=== PATIENT | female | born 1965 | race Caucasian/White ===

== ENCOUNTER 2023-12-18 13:30 | Outpatient (CLI) | payer BC, SELFPAY ==
--- NOTE | ~2023-12-18 | XR_ITS ---
[id number] Ordering provider: CAMMIE West History: . PAIN ACROSS TOP OF FOOT AFTER RUNNING . Comparison: None. FINDINGS: BONES: No acute fracture or dislocation. JOINT SPACES: Normal. No tarsal coalition. SOFT TISSUES: Normal. IMPRESSION: No acute osseous abnormality of the right foot. Reviewed, dictated and finalized at location A.
== END 2023-12-18 13:31 ==
PROVIDERS: PCP Clinical Nurse Specialist; Visit Provider Clinical Nurse Specialist
DX: M79.671 Pain in right foot (principal)
CPT/HCPCS: 73630

== ENCOUNTER 2023-12-26 09:01 | Emergency (ER) | payer BC, SELFPAY ==
--- NOTE | ~2023-12-26 | CT_ITS ---
CT abdomen pelvis w con Ordering provider: Aye Quach APRN History: 58 years Female with . abdominal pain . Comparison: None. Technique: CT abdomen and pelvis with IV and without oral contrast. Automated exposure control and it erative reconstruction technique were employed. The dose-length product was 302.48 mGy-cm. 100 mL Omn ipaque 350 was given IV. Findings: VISUALIZED LOWER CHEST: Dependent atelectatic changes. UPPER ABDOMINAL ORGANS: Liver: Fat infiltration. Hepatomegaly. Gallbladder: Normal. Spleen: Hypodensity seen in the liver which may be a cyst. Follow-up advised. Stomach/duodenum: Thickened wall. Thickened lower esophagus wall which may indicate reflux esophagiti s. Clinical evaluation advised. Pancreas: Normal. Adrenals: Normal. Kidneys: Stone in the left kidney mid pole measuring 5 mm. Right hydronephrotic changes with a stone in the right lower ureter measuring 7 mm. Slight dilatation of the left ureter and renal pelvis. PELVIC ORGANS: Underfilled urinary bladder with slightly thickened wall. BOWEL AND MESENTERY: Colon: Thickened wall of the rectum. Evaluation clinically is advised. No evidence of diverticulitis. Normal appendix. Small Bowel: Normal. No obstruction. Peritoneum/mesentery: No free air or free fluid. No mesenteric lymphadenopathy. RETROPERITONEUM: Mild atheromatous disease of the abdominal aorta. No retroperitoneal lymphadenopat hy. Lymph node is seen adjacent to the right iliac vessels measuring 1.2 cm. MUSCULOSKELETAL: Superficial soft tissues: The superficial soft tissues are normal. Bones: Age appropriate degenerative changes of the spine. IMPRESSION: 1. Stone in the right lower ureter with right hydronephrotic changes. 2. Slight dilatation of the left renal pelvis and ureter with no definite stones. Bilateral renal 3. Slightly enlarged iliac lymph nodes. 4. Fat infiltration of the liver. Hepatomegaly 5. Hypodensity in the spleen most likely a cyst. Follow-up advised. Reviewed, dictated and finalized at location A. IMPRESSION: 1. Stone in the right lower ureter with right hydronephrotic changes. 2. Slight dilatation of the left renal pelvis and ureter with no definite ston es. Bilateral renal 3. Slightly enlarged iliac lymph nodes. 4. Fat infiltration of the liver. Hepatomegaly 5. Hypodensity in the spleen most likely a cyst. Follow-up advised.
[2023-12-26 09:10] VITALS: BP 152/81; PULSE 76; RESP 16; TEMP 36.6; O2SAT 100
[2023-12-26 09:33] LABS: Basophils Percent Auto 0.6 % (0.2-1.2); Eosinophils Absolute Auto 0.1 K/mm3 (0-0.3); Eosinophils Percent Auto 1.9 % (0-4.4); Hematocrit 37.3 % (37.0-47.0); Hemoglobin 12.4 g/dL (12.0-15.0); Immature Granulocyte Absolute 0.01 K/mm3 (0.00-0.031); Immature Granulocyte Percent A 0.1 % (0-0.5); Lymphocytes Absolute Auto 1.94 K/mm3 (0.9-3.2); Mean Corpuscular HGB Conc 33.2 g/dl (32-36); Mean Corpuscular Volume 96.4 fl (80-100); Mean Platelet Volume 10.1 fl (7.4-10.4); Monocytes Absolute Auto 0.6 K/mm3 (0.1-0.6); Neutrophils Percent Auto 59.4 % (45.5-73.1); Platelet Count Result 227 k/mm3 (150-375); Red Blood Count 3.87 M/mm3 (4.2-5.4); Red Cell Distribution Width 13.2 % (11.5-14.5); White Blood Count 6.7 K/mm3 (4.5-10.0)
--- NOTE | 2023-12-26 09:38 | ED.GENADULT ---
HPI - General Adult General Chief complaint: Abdominal Pain Stated complaint: cyst burst Time Seen by Provider: 12/26/23 09:15 History of Present Illness HPI narrative: Bhavani Casillas is a 58 y/o female who presents today with reports of having right flank pain that started 5 days ago, she states it felt similar to ovarian cysts she has had in the past but the pain felt more severe and it made her vomit. She states the pain then moved around to her right lower abdomen and has not improved. She states now she is having a constant pressure / ache pain to her right lower abdomen. Denies urinary symptoms Last normal BM was this morning Denies feeling nausea but has not had an appetite since this started 5 days ago NO fever/chills Hx of / tubal and hysterectomy Related Data Home Medications Medication Instructions Recorded Confirmed levothyroxine 25 mcg tablet 25 mcg PO DAILY 06/29/22 12/18/23 (Unithroid) Allergies Allergy/AdvReac Type Severity Reaction Status Date / Time chlorhexidine Allergy Hives Verified 12/26/23 09:15 amlodipine AdvReac Heartburn Verified 12/18/23 12:56 Review of Systems Review of Systems: CONSTITUTIONAL: Denies fever, chills, or sweats. EYES: Denies visual changes, redness, or discharge. ENT: Denies rhinorrhea, congestion, sore throat, or otalgia. CARDIOVASCULAR: Denies chest pain, palpitations, or edema. RESPIRATORY: Denies cough or dyspnea. GASTROINTESTINAL: + right lower abdominal pain, Denies nausea, vomiting, or diarrhea. GENITOURINARY: Denies dysuria or hematuria. SKIN: Denies rash or itching. MUSCULOSKELETAL: Denies back pain, joint pain, or myalgia. NEUROLOGIC: Denies headache, numbness, dizziness, or weakness. PSYCHIATRIC: Denies anxiety or depression. FORMERLY [facility] Past Medical History Medical History Arthritis Dyslipidemia Essential (primary) hypertension H/O Corazon thyroiditis Hypothyroidism (acquired) Multinodular goiter Surgical History Surgical History H/O dilation and curettage (~06/17/09) H/O foot surgery (~1976) Left - for bony deformity H/O: hysterectomy (~09/20/16) History of (~1992) Hx of tubal ligation (~2010) Family History Family History Father Cerebrovascular accident Family history of coronary artery disease Family history of cardiovascular disease Social History Social History Smoking status: Former smoker Smoking end date: 06/18/91 Alcohol intake: current Substance use: never Substance use type: does not use Lack of Transportation: No Lack of Food: Never True Current Housing: I Have Housing Concerned About Future Housing: No Difficulty Paying Gas/Electric Bills: No Difficulty Paying for Meds: No Currently Unemployed: No Education: Master's Degree or Higher Difficulty w/ Childcare or Family Care: No Exam Narrative: GENERAL: Well-appearing, well-nourished, and in no acute distress. HEAD: Normocephalic, atraumatic. EYES: PERRLA and EOMI. ENT: Nares clear, no rhinorrhea or epistaxis. Mucous membranes moist. Oropharynx without tonsillar hypertrophy exudate or other lesions. NECK: Supple. No adenopathy or masses. No carotid bruits or JVD CHEST: Clear to auscultation. No respiratory distress. No wheezes rales or rhonchi HEART: Regular rate and rhythm. No murmur heard. Normal peripheral pulses. ABDOMEN: Soft, nondistended, normal active bowel sounds + pain with palpation to the right lower quadrant + Right CVA tenderness EXTREMITIES: Normal range of motion. No edema. SKIN: Warm, dry, no rash. NEURO: No focal deficits. Alert and oriented x3. PSYCH: Normal mood and affect. Course Vital Signs Vital signs: Vital Signs Temperature 36.6 C 12/26/23 09:10 Pulse Rate 76
[2023-12-26] MEDS: SODIUM CHLORIDE 0.9% IV 1,000 ML 999 ML IV CONT (09:44)
[2023-12-26] MEDS: KETOROLAC 30 MG/ML VIAL (*BKC) IV PUSH (09:44)
[2023-12-26] MEDS: ONDANSETRON INJ 4 MG/2 ML VIAL IV PUSH (09:45)
[2023-12-26] MEDS: FAMOTIDINE 20 MG/2 ML VIAL IV PUSH (09:45)
[2023-12-26 09:46] LABS: Alanine Aminotransferase 23 U/L (6-35); Albumin Level 4.4 g/dL (3.5-5.1); Alkaline Phosphatase 62 U/L (38-126); Anion Gap 12 mmol/L (4-12); Aspartate Amino Transferase 30 U/L (14-36); Bilirubin,Total 0.5 mg/dL (0.2-1.3); Blood Urea Nitrogen 19 mg/dL (7-17); Calcium 9.6 mg/dL (8.4-10.2); Carbon Dioxide 24 mmol/L (22-30); Chloride 104 mmol/L (98-107); Estimated CRCL calculation 55 ml/min; Estimated Glomerular Filt Rate > 60; Glucose 85 mg/dL (65-110); Lipase 107 U/L (23-300); Potassium 4.5 mmol/L (3.4-5.0); Sodium 140 mmol/L (137-145)
[2023-12-26 10:27] VITALS: BP 120/73; PULSE 75; RESP 17; O2SAT 100
[2023-12-26 10:42] LABS: Appearance Urine Clear (Clear); Bacteria Urine None Seen /hpf; Bilirubin Urine Negative (Negative); Blood Urine 1+ (Negative); Color Urine Yellow (Yellow); Glucose Urine UA Negative (Negative); Ketones Urine 1+ mg/dL (Negative); Leukocyte Esterase Ur Negative LEU/UL (Negative); Nitrate Urine Negative (Negative); Non Pathogenic Casts 0-2; Protein Urine Negative (Negative); Specific Grav Ur 1.018 (1.001-1.035); Squamous Epithelial Cell Urine None Seen /hpf (Few); Urobilinogen Urine 0.2 mg/dL (<2.0); WBC Urine 0-5 /hpf (0-3); pH Urine 5.5 (5.0-9.0)
[2023-12-26 11:10] LABS: Add Urine Microscopic? YES
[2023-12-26 12:01] VITALS: BP 125/73; O2SAT 98
[2023-12-26] MEDS: TAMSULOSIN HCL 0.4 MG CAPSULE PO (13:01)
[2023-12-26 13:07] VITALS: BP 132/84; PULSE 68; RESP 15; O2SAT 99
[2023-12-26 14:25] VITALS: BP 118/67; PULSE 70; RESP 16; O2SAT 97
== END 2023-12-26 14:28 | disposition home or self-care (01) ==
PROVIDERS: Emergency Provider Nurse Practitioner Family; PCP Internal Medicine
DX: N20.1 Calculus of ureter (principal); E78.5 Hyperlipidemia, unspecified; I10 Essential (primary) hypertension; E03.9 Hypothyroidism, unspecified; Z87.891 Personal history of nicotine dependence
CPT/HCPCS: 36415; 74177; 80053; 81001; 83690; 85025; 96361; 96374; 96375; 99284; A9270; J1885; J2405; J7030; Q9967

== ENCOUNTER 2023-12-27 12:46 | Outpatient (CLI) | payer BC, SELFPAY ==
--- NOTE | ~2023-12-27 | XR_ITS ---
EXAMINATION: XR abdomen/kub 1V DATE: 12/27/2023 13:06 INDICATION: Right ureteral stone. TECHNIQUE: A supine view of the abdomen on 2 radiographs was obtained. COMPARISON: CT abdomen and pelvis 12/26/2023 FINDINGS: There are no dilated loops of bowel. There are two 2 mm stones in right kidney upper pole. There is a 5 mm stone in left kidney. There is a 5 mm stone in distal right ureter overlying the sacr um. There are phleboliths in the pelvis. IMPRESSION: 1. 5 mm stone in distal right ureter. 2. Bilateral kidney stones. Reviewed, dictated and finalized at location E.
== END 2023-12-27 12:47 | disposition home or self-care (01) ==
PROVIDERS: PCP Internal Medicine; Visit Provider Physician Assistant
DX: N20.2 Calculus of kidney with calculus of ureter (principal)
CPT/HCPCS: 74018

== ENCOUNTER 2024-01-02 09:23 | Outpatient (CLI) | payer BC, SELFPAY ==
--- NOTE | 2024-01-02 09:30 | ECG_ITS ---
Test Date: 2024-01-02 09:48:45 Measurements Intervals Donora Rate: 64 P: 49 DE: 168 QRS: 16 QRSD: 65 T: 70 QT: 371 QTc: 384 Interpretive Statements SINUS RHYTHM LOW QRS VOLTAGE IN PRECORDIAL LEADS PATTERN CONSISTENT WITH PULMONARY DISEASE NONSPECIFIC ST-T WAVE ABNORMALITY- INF/HIGH LAT LEADS BORDERLINE ECG No previous ECG available for comparison Electronically Signed On 01-02-2024 17:30:11 CDT by Altaf Sevilla D.O.
== END 2024-01-02 09:24 | disposition home or self-care (01) ==
LOC: ANHSURGERY 09:31
PROVIDERS: PCP Internal Medicine; Visit Provider Urology
DX: I10 Essential (primary) hypertension (principal); Z01.818 Encounter for other preprocedural examination; R94.31 Abnormal electrocardiogram [ECG] [EKG]
CPT/HCPCS: 93005

== ENCOUNTER 2024-01-03 01:46 | Day surgery (SDC) | payer BC, SELFPAY ==
[2023-12-31 16:52] VITALS: BMI 23.3
--- NOTE | 2023-12-31 16:58 | SUR.PREOP ---
Report to the Outpatient Waiting Room, entrance under the green pavilion located off [facility], at time 0930 on date 01/03/24. Planned Procedure Time: 1130. Time changes happen often and if your time is changed the preop area will call you the afternoon before. - You and your visitor will be asked to self-screen and do not enter if you have any COVID symptoms. - A mask is optional within the hospital at this time. Patients may have clear liquids (water, carbonated beverages, clear teas, apple juice) until 3 hours prior to surgery with a maximum of 20 ounces. - No food from midnight until time of surgery - Infants may have breast milk until 4 hours before surgery, formula 6 hours prior to surgery. - Children will be allowed to drink immediately following surgery. If applicable, please bring a bottle or sippy cup to assist with drinking. Juice, water, soda, and popsicles are readily available. For infants on formula, please bring formula the day of surgery. Pacifiers are allowed. Take the following medications with a SIP of water the morning of surgery: LEVOTHYROXINE DO NOT STOP ANY OF YOUR OTHER PRESCRIPTION MEDICATIONS PRIOR TO SURGERY ?EXCEPT THE FOLLOWING Medications to discontinue per physician Date to take last dose Please no make-up, nail algerian, hairspray, perfume, deodorant, or body powder the day of surgery. No jewelry (including any body piercings) or valuables the day of surgery, leave them at home. Please take a shower or bath the night before, or the morning of, surgery with an antibacterial soap. Wear comfortable, loose fitting clothing. Children are encouraged to wear pajamas. - Jewelry must be removed prior to entering the operating room. Rings and piercings that are not removed may be cut off. - The hospital will not accept responsibility for valuables. - Please leave all valuables, including medications, at home the day of surgery. If you are going home after surgery, a licensed motor driver must drive you home. - NO public transportation without another adult if you receive anesthesia. - We recommend that an adult stay with you for 24 hours following discharge. - We also recommend that you do not drive, make important decision, drink alcoholic beverages, or take any drugs that were not prescribed by your health care provider for at least 24 hours after your discharge time. For Pediatric surgeries, we recommend two adults accompany the child home. Follow any additional instructions given to you from your surgeon. If you or anyone in your household have experienced Covid symptoms in the past week, please notify your surgeon or the nurse liaison at the phone number below for possible testing. Telephone instructions given to __PATIENT__and asked if any additional questions and then verbalized understanding. Patient advised to call surgeon office or pre surgery nurse liaison [phone] if any additional questions.
[2024-01-03] VITALS (9 sets, daily range): BP systolic 110–129; BP diastolic 47–69; PULSE 60–86; RESP 11–16; TEMP 36.4–36.6; O2SAT 97–100; BMI 23.8
--- NOTE | ~2024-01-03 | XR_ITS ---
EXAMINATION: XR retrograde pyelo w/stent RT DATE: 01/03/2024 11:26 INDICATION: Right internal ureteral stent placement TECHNIQUE: Fluoroscopic images from a right internal ureteral stent placement are submitted for fam nava 27 seconds of fluoroscopy time. 5 fluoroscopic images FINDINGS: There is a right double-J internal ureteral stent projecting in expected position, with proximal [place] loop at the level of the renal pelvis and distal loop in the pelvis within the bladder lumen. IMPRESSION: 1. Right internal ureteral stent placement. Please refer to real-time procedural findings for adams mccurdy. Reviewed, dictated and finalized at location B. IMPRESSION: 1. Right internal ureteral stent placement. Please refer to real-time procedu ral findings for details.
--- NOTE | 2024-01-03 06:30 | WPDHPUPDATE1 ---
History and Physical Update Update Date/Time: 01/03/24 06:30 History and Physical has been reviewed, including an updated exam of the patient. There are NO changes in the patient's condition. Risks, benefits, and alternatives have been discussed and questions answered. Patient agrees to proceed with procedure.
--- NOTE | 2024-01-03 09:51 | WPDANESEPPF ---
Anes - Initial Pre Proc Eval Procedure: Operation Date: 01/03/24 11:30 Proposed Procedures p Cystoscopy, Right Ureteroscopy, Holmium Laser Lithotripsy, Right Stone Extraction, Possible Retrograde Pyelography, Possible Right Stent Placement - Franc Cid MD Date/Time: 01/03/24 09:51 Surgeon: Franc Cid MD Pre Op Diagnosis: Right Ureteral Stone Patient Data Age: 58 Gender: F Height: 1.68 m Weight: 65.77 kg Allergies Allergy/AdvReac Type Severity Reaction Status Date / Time chlorhexidine Allergy Hives Verified 01/02/24 13:57 amlodipine AdvReac Heartburn Verified 01/02/24 13:57 Home Medications Medication Instructions Recorded Confirmed Type levothyroxine 25 mcg tablet 25 mcg PO DAILY 06/29/22 01/02/24 History (Unithroid) lisinopril 10 mg tablet 10 mg PO DAILY 12/31/23 01/02/24 History acetaminophen 325 mg tablet 650 mg PO Q4-6H 01/01/24 01/02/24 History (Tylenol) tamsulosin 0.4 mg capsule 0.4 mg PO DAILY 01/01/24 01/02/24 History Patient hx anesthesia problems: none Family hx anesthesia problems: none Results Review: All pre-operative results and documents have been reviewed as part of the pre-operative evaluation. FORMERLY [facility] Past Medical History Medical History Arthritis Dyslipidemia Essential (primary) hypertension H/O Corazon thyroiditis Hypothyroidism (acquired) Multinodular goiter Surgical History Surgical History H/O dilation and curettage (~06/17/09) H/O foot surgery (~1976) Left - for bony deformity H/O: hysterectomy (~09/20/16) History of (~1992) Hx of tubal ligation (~2010) Family History Family History Father Cerebrovascular accident Family history of coronary artery disease Family history of cardiovascular disease Social History Social History Smoking status: Never smoker Smoking end date: 06/18/91 Alcohol intake: current Substance use: never Substance use type: does not use Lack of Transportation: No Lack of Food: Never True Current Housing: I Have Housing Concerned About Future Housing: No Difficulty Paying Gas/Electric Bills: No Difficulty Paying for Meds: No Currently Unemployed: No Education: Master's Degree or Higher Difficulty w/ Childcare or Family Care: No Living arrangements: with family Spiritual care concerns: No Anes - Eval Final PreProcedure Day of Procedure 01/03/24 09:51 Patient weight: normal Heart: regular rate and rhythm Lungs: clear to auscultation Airway: Mallampati scale class II Neurological: alert and oriented Last oral intake: >/= 8 hours ASA classification: II Emergent: no Anesthetic plan: proceed Anesthesia type and monitoring: general LMA and standard monitoring Results Review: All pre-operative results and documents have been reviewed as part of the pre-operative evaluation. HTN, hypothyroidism. Informed Consent: The patient's anesthetic plan and its attendant risks and benefits were discussed with the patient/family/POA. Questions were solicited and answers provided to the satisfaction of the patient/family/POA.
[2024-01-03] MEDS: LACTATED RINGERS 1,000 ML 30 ML IV CONT (10:00)
[2024-01-03] MEDS: ceFAZolin 2 GM/D5W 50 ML 2 GM/50 ML BAG IVPB (10:48)
[2024-01-03] MEDS: LIDOCAINE HCL 2% GEL UROJET 10 ML PKG MUCOUS MEM (11:00)
[2024-01-03] MEDS: KETOROLAC 15 MG/ML VIAL (*BKC) IV PUSH (11:19)
--- NOTE | 2024-01-03 11:26 | P.OP_ITS ---
Procedure Note - Detailed Date of Procedure 01/03/24 Pre-op Diagnosis Right Ureteral Stone Post-op Diagnosis Same Procedure Performed Cystoscopy, right ureteroscopy, laser lithotripsy with stone extraction, retrograde pyelogram and stent Surgeon Franc Cid MD Anesthesia General Description of Procedure The patient was brought to the operative suite where she is prepped and draped in a routine sterile fashion while in the dorsal lithotomy position after the uneventful induction of a general LMA anesthetic. A 19F rigid cystoscope was placed in the bladder. The patient had no evidence of urethral stricture or bladder neck contracture. The bladder mucosa was endoscopically normal without hyperemia or neoplasm. There was a single, orthotopic ureteral orifice bilaterally. A 0.035 glidewire was advanced into the right renal pelvis under fluoroscopy. The distal ureter was dilated with an 8F/10F ureteral dilator. Ureteroscopy was undertaken with a short tapered semi-rigid ureteroscope. She has a large 7 mm stone which was impacted 7-8 cm above the ureteral orifice. I used a 272 micron Pretty in my Pocket (PRIMP) laser fiber to fracture at/ dusted into multiple small pieces, all of which were removed with a 1 point F disposable escape stone basket. Due to the extent of this manipulation I did place a 4.8F double-J ureteral stent. I performed a retrograde pyelogram through the ureteral scope to ensure appropriate placement of the stent. The proximal coil of the stent was confirmed to be in the renal pelvis and the distal coil in the bladder. The patient's bladder was emptied and she was taken to the recovery room having tolerated this procedure well. Pathology Yes Condition Stable Disposition PACU
--- NOTE | 2024-01-03 11:54 | SUR.PHASEI ---
Simple mask removed at 1155.
[2024-01-03] MEDS: oxyCODONE HCL (*CRX) 5 MG TAB IR PO (12:41)
== END 2024-01-03 13:12 | disposition home or self-care (01) ==
PROVIDERS: PCP Internal Medicine; Visit Provider Urology
PROC: (CPT 52352; principal; 2024-01-03 11:30)
DX: N20.1 Calculus of ureter (principal); I10 Essential (primary) hypertension
CPT/HCPCS: 52356; 74420; 82365; 88300; A9270; C1769; C2617; J0690; J1885; J2371; J2405; J2704; J3010; J7120; Q9966

== ENCOUNTER 2024-01-28 08:48 | Outpatient (CLI) | payer BC, SELFPAY ==
--- NOTE | ~2024-01-28 | US_ITS ---
COMPLETE ABDOMINAL ULTRASOUND Ordering provider: Coni Bhagat NP History: . Hepatomegaly and cyst of spleen . Comparison: None. FINDINGS: LIVER: Hepatomegaly with fat infiltration. The liver measures 20.6 cm. No focal hepatic lesions or pe rihepatic fluid collections are identified. Portal vein flow is normal. GALLBLADDER: Unremarkable. No evidence for stones, sludge, gallbladder wall thickening or pericholecy stic fluid collections. The wall measures 0.15 cm. A negative sonographic Lobato's sign was noted. BILIARY DUCTS: No evidence for intra or extrahepatic biliary dilation. Common bile duct measures 1.8 mm in diameter which is within normal limits. PANCREAS: Normal echotexture and size. SPLEEN: Normal size, echotexture and contour and measures 9.2 cm in length. Hypoechoic area is seen m easuring 1.1 x 1.3 x 1 cm most likely a small cyst. KIDNEYS: Right measures 11.1x 3.5x 4.8 cm in length and the left 12.2x 5x 4.2 cm in length. Hypoechoi c area is seen in the right kidney measuring 1 x 1.1 x 0.9 cm.. Follow-up advised. Echogenic stone wi th shadowing is seen in the left kidney measuring 0.8 x 0.4 x 5.7 cm. Mild hydronephrotic changes in the left kidney. UPPER ABDOMINAL AORTA: Normal in caliber. Proximal aorta measures 2.1 cm. Mid aorta measures 1.8 cm. Distal aorta measures 1.6 cm. IVC: Patent. FREE FLUID: None. IMPRESSION: Hepatomegaly with fat infiltration. Hypoechoic area in the spleen. Most likely a cyst. Hypoechoic area in the right kidney which may be a cyst or a mass. Follow-up advised. Stone in the left kidney with mild hydronephrotic changes. Reviewed, dictated and finalized at location A. IMPRESSION: Hepatomegaly with fat infiltration. Hypoechoic area in the spleen. Most likely a cyst. Hypoechoic area in the right kidney which may be a cyst or a mass. Follow-up ad vised. Stone in the left kidney with mild hydronephrotic changes.
== END 2024-01-28 08:49 | disposition home or self-care (01) ==
PROVIDERS: PCP Internal Medicine; Visit Provider Nurse Practitioner
DX: R16.0 Hepatomegaly, not elsewhere classified (principal); D73.4 Cyst of spleen; K76.0 Fatty (change of) liver, not elsewhere classified; N20.0 Calculus of kidney
CPT/HCPCS: 76700

== ENCOUNTER 2024-04-28 08:12 | Outpatient (CLI) | payer BC, SELFPAY ==
--- NOTE | ~2024-04-28 | CT_ITS ---
EXAMINATION: CT abdomen pelvis wo/w con DATE: 04/28/2024 08:41 INDICATION: Other specified disorders of kidney and ureter. Right kidney mass. TECHNIQUE: Computed tomography (CT) of the abdomen and pelvis was performed without and with 100 mL O mnipaque 350 intravenous contrast. Automated exposure control and iterative reconstruction technique were employed. The dose-length product was 516.95 mGy-cm. COMPARISON: CT abdomen and pelvis 12/26/2023 FINDINGS: The visualized portions of the lung bases demonstrate mild atelectasis. No pleural effusion. The hear t size is normal. No pericardial effusion. There is a small sliding hiatal hernia. There is diffuse h epatic steatosis. The gallbladder is normal. There is a 2.0 cm cyst in the spleen. The pancreas and a drenal glands are normal. There are cysts in the kidneys measuring up to 2.2 cm on the left. There is a 6 mm stone in left kidney. There are bilateral inguinal hernias containing fat. There are no dilat ed loops of bowel. The appendix is normal. There are no pathologically enlarged lymph nodes. There is no free intraperitoneal fluid. There is severe lower lumbar spondylosis. IMPRESSION: 1. Benign cysts in the kidneys. 2. 6 mm nonobstructing left kidney stone. Reviewed, dictated and finalized at location [] ATOR ERECTOR
[2024-04-28 08:31] LABS: Estimated Glomerular Filt Rate 57
== END 2024-04-28 08:13 | disposition home or self-care (01) ==
LOC: MICIMG 08:13
PROVIDERS: PCP Internal Medicine; Visit Provider Nurse Practitioner
DX: N28.1 Cyst of kidney, acquired (principal); N20.0 Calculus of kidney
CPT/HCPCS: 74178; Q9967

== ENCOUNTER 2024-08-25 11:33 | Outpatient (CLI) | payer BC, SELFPAY ==
--- NOTE | ~2024-08-25 | XR_ITS ---
XR abdomen/kub 1V Ordering provider: Franc Cid MD History: . rt uretal stone . Comparison: None. FINDINGS: BOWEL: Nonobstructive bowel gas pattern. ORGANOMEGALY: None. SIGNIFICANT PATHOLOGIC CALCIFICATIONS: Left kidney stone measuring 7 mm. Calcific shadow projected over the bladder which may be a stone. Follow-up advised. OTHER: No free air is seen under the diaphragm. IMPRESSION: NO ACUTE ABDOMINAL FINDINGS. Left kidney stone. Calcific shadow projected over the urinary bladder. Follow-up advised. Reviewed, dictated and finalized at location A.
--- OUTSIDE RECORDS SUMMARY | 2024-08-25 13:46 | XMS_ITS | Clinical Summary ---
Author Organization [facility] [address] [place] Address [address] [place] [id number] Care Team Providers Care Licensed Club Manager Name Role Phone Madelin Jaeger MD Primary Care Provider [phone] Allergies No known active allergies Active Problems Problem Noted Date Diagnosed Date Non-toxic nodular goiter 11/01/2013 Overview (09/21/2016): NONTOX NODUL GOITER NOS Medical History Medical History Date Comments Hx Other Medical goitre Hx Other Medical kidney stone Family History Medical History Relation Name Comments Hypertension Other 1 Family history of Hypertension; Other Other 1 No family histo ry of Diabetes mellitus; Thyroid disease Other 1 Family histo ry of Thyroid disorder; Thyroid disease Other 2 Family histo ry of Thyroid disease; Relation Name Status Comments Other 1 Other 2 Social History Tobacco Use Types Packs/Day Years Used Date Smoking Tobacco: Never Assessed Alcohol Use Standard Drinks/Week Comments No 0 (1 standard drink = 0.6 oz pur e alcohol) Comments Unknown Sex and Gender Information Value Date Recorded Sex Assigned at Not on file Legal Sex Female 12:43 AM [employer] Gender Identity Not on file Sexual Orientation Not on file Obstetrics History Plan of Treatment Health Maintenance Due Date Last Done Comments Breast Cancer Screening-Mammogram 1963 Cervical Cancer Screening 1963 Colon Cancer Screening-Colonoscopy 1965 Depression Screening 1963 Hepatitis C Screening 1965 DTaP/Tdap/Td Vaccine (1 - Tdap) 08/19/1974 Hepatitis B Screening 08/19/1981 Regular Well Visit/Exam 18-64 08/19/1981 Zoster Vaccine (1 of 2) 08/19/2013 Covid-19 Vaccine (2023-2 5 season) 2024 03/31/2021, 09/17/2020, 08/27/2020 Influenza Vaccine (#1) 2024 04/17/2018 Pneumococcal vaccine <65 Aged Out No longer eligible based on patient's age to complete this topic Insurance [employer] Address: [facility] [id number] [place] [address] Care Teams Licensed Club Manager Relationship Specialty Start Date End Date Madelin Jaeger MD [address] [place] [address] PCP - General 10/05/08
--- OUTSIDE RECORDS SUMMARY | 2024-08-25 13:46 | XMS_ITS | Encounter Summary ---
Author Organization [facility] Address [address] [facility] [place] [address] Care Team Providers Care Physical Therapy Manager Name Role Phone Madelin Jaeger MD Primary Care Provider [phone] Bhavani Cm RN Unavailable [phone] Neo Garcia MD Primary Care Provider [phone] Neo Garcia MD Primary Care Provider [phone] Madelin Jaeger MD Primary Care Provider [phone] Odalis Guerrero MD Primary Care Provider [phone] Shawnee Marshall DO Primary Care Provider Coni Hawk MD Unavailable [phone] Madelin Jaeger MD Primary Care Provider [phone] Shawnee Marshall DO Primary Care Provider Odalis Guerrero MD Unavailable [phone] Encounter Details Date Type Department Care Team (Late st Contact Info) Description 04/12/2017 Lab Requisition [facility] - Laboratory [address] [place] [address] Unknown, Provider Social History Tobacco Use Types Packs/Day Years Used Date Smoking Tobacco: Never Alcohol Use Standard Drinks/Week Comments Yes 0 (1 standard drink = 0.6 oz pur e alcohol) occ Sex and Gender Information Value Date Recorded Sex Assigned at Not on file Gender Identity Not on file Sexual Orientation Not on file documented as of this encounter Functional Status Functional Status Response Date of Assess ment Is person deaf or have serious hearing difficult y? No 09/20/2016 Is person blind or have serious difficulty seein g? No 09/20/2016 Does person have serious dif ficulty walking/climbing stairs? No 09/20/2016 Does person have difficulty dressing/bathing? No 09/20/2016 Does person have difficulty doing errands alone? No 09/20/2016 Cognitive Status Response Date of Assessm ent Does person have difficulty concentrating/remembering/making decisions? No 09/20/2016 documented as of this encounter Plan of Treatment Upcoming Encounters Date Type Department Care Team (Late st Contact Info) Description 04/16/2025 8:40 AM CDT Office Visit [facility] - Endocrinology [id number] [place] [phone] Coni Hawk MD [address] [place] [address] documented as of this encounter Visit Diagnoses Not on filedocumented in this encounter Additional Health Concerns Infection Onset Date Last Indicated Resolved Time COVID-19 Under Investigation 02/01/2020 02/01/2020 02/01/2020 9:41 AM CDT COVID-19 Under Investigation 02/01/2020 02/01/2020 02/02/2020 6:20 AM CDT COVID-19 Under Investigation 04/23/2020 04/23/2020 04/25/2020 6:35 PM PROCESS SAFETY ENGINEER documented as of this encounter Care Teams Physical Therapy Manager Relationship Specialty Start Date End Date Madelin Jaeger MD [address] [place] [address] PCP - General Family Medicine 04/29/15 10/01/17 Neo Garcia MD [address] [place] [phone] PCP - General 10/02/17 10/02/17 Neo Garcia MD [address] [place] [address] PCP - General 10/03/17 10/28/17 Madelin Jaeger MD [address] [place], [place] [id number] PCP - General Family Medicine 10/29/17 03/18/18 Odalis Guerrero MD [address] [place] [address] PCP - General Family Medicine 03/19/18 08/13/18 Shawnee Marhsall DO RR [address] [place] [address] PCP - General Internal Medicine 08/14/18 06/18/19 Madelin Jaeger MD [address] [place] [address] PCP - General 06/19/19 01/22/20 Shawnee Marshall DO RR [address] [place] [phone] PCP - General Internal Medicine 01/23/20 Odalis Guerrero MD [address] [address] PCP - Attributed-Exclusive Choice 06/20/18 11/17/18 Bhavani Cm, RN Validation Intern 09/21/16 [place] [address] [address] Endocrinology 11/18/18 documented as of this encounter
--- OUTSIDE RECORDS SUMMARY | 2024-08-25 13:46 | XMS_ITS | Clinical Summary ---
Author Organization [facility] Address [address] [facility] [place] [address] Care Team Providers Care Meal Cook Name Role Phone Tyree Cm RN Unavailable [phone] Coni Hawk MD Unavailable [phone] Shawnee Marshall DO Primary Care Provider [phone] Source Comments [facility],non-owned Affiliates and Associated Physician Practices is amultiple site organization consisting of ambulatory clinics and hospital sitesin [place], [place], [place] and [place]. This disclosure is being madepursuant to the Care Everywhere program and may not contain all information available regarding this patient. Last updated 18.[facility] Allergies Active Allergy Reactions Criticality Noted Date Comments Chlorhexidine Rash Medium 11/18/2018 Nickel Urticaria,Itching Medium 09/19/2016 Medications * Be aware that medications may not be up to date on this document. Alwaysverify current medications with the patient. Medication Sig Dispensed Refills Start Date End Date Status Feverfew 380 MG Take 1 Tab by mouth once daily as needed Active Multiple Vitamin (MULTI VITAMIN PO) Take 1 Tab by mouth once daily Active Aurora-3 Fatty Acids (ULTRA OMEGA 3 PO) Take 1 Tab by mouth once daily Reported on 09/15/2016 Active Cyanocobalamin (VITAMIN B12) 1000 MCG TBCR Take 1 Tab by mouth once daily Active Ascorbic Acid (VITAMIN C) 500 MG Take 1 Tab by mouth once daily Active Zinc 50 MG Take 1 Tab by mouth once daily Active Vitamin D-Vitamin K (VITAMIN K2-VITAMIN D3 PO) Take 1 Tab by mouth once daily Active lisinopril (Prinivil; Zestril) 10 MG tablet Take 1 (one) tablet by mouth once daily 03/25/2023 Active Levoxyl 50 MCG tablet Take 1 (one) tablet by mouth once daily 90 tablet 1 06/22/2024 Active Active Problems Problem Noted Date Diagnosed Date Iron deficiency anemia 03/26/2018 Elevated blood pressure read ing without diagnosis of hypertension 03/26/2018 Vaginal cuff granuloma 07/03/2017 Status post hysterectomy 05/08/2017 Resolved Problems Problem Noted Date Diagnosed Date Resolved Date Screening for condition 06/29/2016 1002/2018 Overview (09/22/2016): Adult Abstraction Problem List Screening Dexa Scan (Bone Density): Result: Never Pap Smear:LAVH BSO for prolapse 09/20/16 01/28/16 wnl per pt Mammogram: 03/01/16 wnl CF Test: Result: Encounters Date Type Department Care Team Description 06/22/2024 Orders Only [facility] - Endocrinology [address] [facility], [address] [address] Coni Hawk MD Nodular goiter, non-toxic from Last 3 Months Immunizations Name Administration Dates Next Due INFLUENZA VACCINE 04/17/2018 Family History Medical History Relation Name Comments Heart Disease Father Hypertension Father Stroke Father Arthritis Maternal Grandfather Cancer Maternal Grandfather unknown Arthritis Maternal Grandmother Dementia Maternal Grandmother Thyroid Disease Maternal Uncle Arthritis - Osteo Mother Dementia Mother Hypertension Mother Thyroid Disease Mother on thyroid r eplacment therapy Thyroid Disease Sister 1 s/p partial thyroidectomy Thyroid Disease Sister 2 Cancer - Breast Neg Hx Cancer - Ovarian Neg Hx Relation Name Status Comments Father Maternal Grandfather Maternal Grandmother Maternal Uncle Mother Alive Paternal Grandfather Paternal Grandmother Sister 1 Alive Sister 2 Alive Social History Tobacco Use Types Packs/Day Years Used Date Smoking Tobacco: Former Cigarettes Q uit: 1991 Smokeless Tobacco: Never Tobacco Cessation:Counseling Given: Not Answered Alcohol Use Standard Drinks/Week Comments Yes 0 (1 standard drink = 0.6 oz pur e alcohol) occ Sex and Gender Information Value Date Recorded Sex Assigned at Not on file Gender Identity Not on file Sexual Orientation Not on file Last Filed Vital Signs Vital Sign Reading Time Taken Comments Blood Pressure 114/82 04/16/2024 8:41 AM CDT Pulse 70 04/16/2024 8:41 AM CDT Temperature 36.7 C (98.1 F) 12/16/2020 10:11 AM CDT Respiratory Rate 20 12/16/2020 10:11 AM CDT Oxygen Saturation 97% 04/16/2024 8:41 AM CDT Inhaled Oxygen Concentration - - Weight 66.7 kg (147 lb) 04/16/2024 8:41 AM CDT Height 167.6 cm (5' 6 ) 04/16/2024 8:41 AM CDT Body Mass Index 23.73 04/16/2024 8:41 AM CDT Plan of Treatment Upcoming Encounters Date Type Department Care Team (Late st Contact Info) Description 04/16/2025 8:40 AM CDT Office Visit [facility] - Endocrinology [address] [place] [address], [address] [address] Coni Hawk MD [address] [place] [address] Health Maintenance Due Date Last Done Comments COLOGUARD (AGES 45-75) - COLON CA SCREENING 1965 COLON MONITORING 1965 COLONOSCOPY - COLON CA SCREENING 1965 CT COLONOGRAPHY - COLON CA SCREENING 1965 FLEX SIG - COLON CA SCREENING 1965 HIV SCREENING 08/19/1978 DTAP/TDAP/TD VACCINES (1 - Tdap) 08/19/1982 PNEUMOCOCCAL VACCINE 50+ (1 of 1 - PCV) 08/19/2013 ZOSTER VACCINE (1 of 2) 08/19/2013 MAMMOGRAM 10/23/2018 10/23/2017, 03/01/2016 Colorectal Cancer Screening 04/05/2019 FIT - COLON CA SCREENING 04/05/2019 04/05/2018 COVID-19 VACCINE (1 - season) 2024 INFLUENZA VACCINE (#1) 2024 , 04/28/2022, 04/17/2018 DEPRESSION SCREENING 06/18/2024 LIPID TESTING 04/20/2028 04/20/2023, 03/19, 03/28/2018, Additional history exists Respiratory Syncytial Virus (RSV) Vaccine Pt: or over 60 yrs (1 - 1-dose 75+ series) 08/19/2038 HEPATITIS C SCREENING Completed 03/28/2018 HEPATITIS B VACCINE Aged Out No longe r eligible based on patient's age to complete this topic HIB VACCINE Aged Out No longer eligi ble based on patient's age to complete this topic HPV VACCINE Aged Out No longer eligi ble based on patient's age to complete this topic MENINGOCOCCAL (Group B) VACCINE Aged Out No longer eligible based on patient's age to complete this topic MENINGOCOCCAL VACCINE Aged Out No jayro fay eligible based on patient's age to complete this topic PNEUMOCOCCAL VACCINE Aged Out No long er eligible based on patient's age to complete this topic Procedures Procedure Name Priority Date/Time Associated Diagnosis Comments LIPID PROFILE Routine 04/20/2023 8:29 AM CDT Nodular goiter, non-toxic Thyroiditis Post-menopausal Healthcare maintenance Encounter for screening mammogram for malignant neoplasm of breast OCCULT BLOOD FECES IMMUNOASSAY Routine 04/05/2018 7:47 AM CDT HEPATITIS C ANTIBODY Routine 03/28/2018 8:36 AM CDT Encounter for hepatitis C screening test for low risk patient MAMMO BILAT SCREENING Routine 10/23/2017 9:07 AM CDT Visit for screening mammogram from Last 3 Months or Most Recently Relevant to Health Maintenance Results * (ABNORMAL) LIPID PROFILE (04/20/2023 8:29 AM CDT) Cholesterol 225(H) <200 mg/dL [facility] HDL Cholesterol 50 > OR = 50 mg/dL [facility] Triglycerides 277(H) <150 mg/dL [facility] Comment: If a non-fasting specimen was collected, consider repeat triglyceride testing on a fasting specimen if clinically indicated. Savita et al. J. of Clin. Lipidol. 2015;9:129-169. LDL Calculated 132(H) mg/dL (calc) [facility] Comment: Reference range: <100 Desirable range <100 mg/dL for primary prevention; <70 mg/dL for patients with CHD or diabetic patients with > or = 2 CHD risk factors. LDL-C is now calculated using the Tisha calculation, which is a validated novel method providing better accuracy than the Friedewald equation in the estimation of LDL-C. Jorge BURDICK et al. RUSTY. 2013;310(19): 2380-8112 (http://education.redBus.in/faq/QVL080) CHOL/HDLC RATIO 4.5 <5.0 (calc) [facility] Non HDL Cholesterol 175(H) <130 mg/dL (calc) [facility] Comment: For patients with diabetes plus 1 major ASCVD risk factor, treating to a non-HDL-C goal of <100 mg/dL (LDL-C of <70 mg/dL) is considered a therapeutic option. Test Performed at: [email or web address] [address] CHUCKY AQUINO MD Blood BLOOD SPECIMEN / Unknown 04/20/2023 8:29 AM CDT 04/20/2023 8:34 AM CDT Coni Hawk MD LAB - CHEMISTRY ORDERABLES Performing Organization Address City/[facility]/ZIP Co de Phone Number [address] [address] * OCCULT BLOOD FECES IMMUNOASSAY (04/05/2018 7:47 AM CDT) Pathologist [facility] Occult Blood Immunoassay Negative Negative 04/05/2018 8:51 AM CDT [facility] Stool STOOL SPECIMEN / Unknown Collection / Unknown 04/05/2018 7:47 AM CDT 04/05/2018 7:47 AM CDT LAB - MICROBIOLOGY O RDERABLES Performing Organization Address City/[facility]/ZIP Co de Phone Number [facility] [address] [place] [address] * HEPATITIS C ANTIBODY (03/28/2018 8:36 AM CDT) Hepatitis C Antibody <0.1 0.0 - 0.9 s/co ratio [facility] ACCOUNT BILL Comment: Negative: < 0.8 Indeterminate: 0.8 - 0.9 Positive: > 0.9 . The CDC recommends that a positive HCV antibody result be followed up with a HCV Nucleic Acid Amplification test (843981). FASTING Blood BLOOD SPECIMEN / Unknown 03/28/2018 8:36 AM CDT 03/28/2018 Narrative Resulting Agency Comment [facility] [address] [facility] [id number] Odalis Guerrero MD LAB - CHEMISTRY OR DERABLES [facility] ACCOUNT BILL [address] [place] [address] * MAMMOGRAM DIGITAL SCREENING BILATERAL G0202 (10/23/2017 9:07 AM CDT) Anatomical Region Laterality Modality Breast Bilateral Mammography 10/23/2017 10:5 3 AM CDT Impressions 10/23/2017 10:53 AM CDT No mammographic evidence of malignancy. BI-RADS Category 1: Negative Mammogram. Recommendation: Resume routine yearly mammography schedule for women over age 40 or return sooner if clinically indicated. Your patient completed a computer based breast cancer risk assessment survey. Based on the information provided by your patient, the survey results indicate that she is NOT AT INCREASED RISK to develop a breast cancer. Additional quantitative risk model data + patient history details have been scanned as a document/letter in the [employer] EMR (media tab). If there are questions regarding this information or our Cancer Genetics Risk Assessment Program, please do not hesitate to contact [phone]. Narrative 10/23/2017 10:53 AM CDT Bilateral mammography. Most recent comparison: 2015 History: Screening mammogram. Technique: Bilateral breasts. Mammography views included: CC and MLO. Images interpreted with CAD. Following current [facility] protocol, 3D mammographic tomosynthesis images were obtained and reviewed on a dedicated viewing station. FINDINGS: Breast composition: Heterogeneously dense which may obscure small masses. No suspicious calcifications, masses, or areas of architectural distortion. Neo Garcia MD MAMMO ORDERABLES from Last 3 Months or Most Recently Relevant to Health Maintenance TYREE CALVO Personal/Famil y 1965 [address] [place] [address] TYREE CALVO Personal/Famil y EMPLOYEE 1965 [address] [place] [address] TYREE CALVO Personal/Famil y 1965 [address] [place] [address] [employer] Employer [address] [place] [address] SonjaTyree Comp Self 1965 [address] [place] [address] Tyree Calvo Personal/Famil y Self 1965 [address] [place] [place] [address] Tyree Calvo Personal/Famil y Self 1965 [address] [place] [address] Tyree Calvo Personal/Famil y Self 1965 Advance Directives Documents on File Type Date Recorded Patient Cotton Seed 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
--- OUTSIDE RECORDS SUMMARY | 2024-08-25 13:46 | XMS_ITS | Referral Summary ---
Author Organization [facility] Address [address] [facility] [place] [address] Care Team Providers Care Digital Content Coordinator Name Role Phone Tyree Cm RN Unavailable [phone] Coni Hawk MD Unavailable [phone] Shawnee Marshall DO Primary Care Provider [phone] Source Comments [facility],non-owned Affiliates and Associated Physician Practices is amultiple site organization consisting of ambulatory clinics and hospital sitesin [place], [place], [place] and [place]. This disclosure is being madepursuant to the Care Everywhere program and may not contain all information available regarding this patient. Last updated 18.[facility] Encounters Date Type Department Care Team Description 06/22/2024 Orders Only [facility] - Endocrinology [address] [place] [address], [address] [phone] Coni Hawk MD Nodular goiter, non-toxic from Last 3 Months Allergies Active Allergy Reactions Criticality Noted Date [...] 1 Tab by mouth once daily Active Leo-3 Fatty Acids (ULTRA OMEGA 3 PO) Take [...] Diagnosed Date Resolved Date Screening for condition 06/29/201602/2018 Overview (09/22/2016): Adult Abstraction Problem List Screening Dexa Scan (Bone Density): Result: Never Pap Smear:LAVH BSO for prolapse 09/20/16 01/28/16 wnl per pt Mammogram: 03/01/16 wnl CF Test: Result: Immunizations Name Administration Dates Next Due INFLUENZA VACCINE 04/17/2018 Social History Tobacco Use Types Packs/Day Years [...] Mass Index 23.73 04/16/2024 8:41 AM CDT Functional Status Functional Status Response Date of [...] person have difficulty concentrating/remembering/making decisions? No 09/20/2016 Plan of Treatment Upcoming Encounters Date Type Department Care Team (Late st Contact Info) Description 04/16/2025 8:40 AM CDT Office Visit [facility] - Endocrinology [address] [place] [address], [address] [address] Coni Hawk MD [address] [place] [address] Procedures Procedure Name Priority Date/Time Associated Diagnosis [...] factors. LDL-C is now calculated using the Jorge-Bergeron calculation, which is a validated novel method providing better accuracy than the Friedewald equation in the estimation of LDL-C. Jorge SS et al. RUSTY. 2013;310(19): 4404-5964 (http://education.CityVoz/faq/XPD041) CHOL/HDLC RATIO 4.5 <5.0 (calc) [facility] Non HDL Cholesterol 175(H) <130 mg/dL (calc) [facility] Comment: For patients with diabetes plus 1 major ASCVD risk factor, treating to a non-HDL-C goal of <100 mg/dL (LDL-C of <70 mg/dL) is considered a therapeutic option. Test Performed at: [email or web address] [address] CHUCKY AQUINO MD Blood BLOOD SPECIMEN / Unknown 04/20/2023 8:29 AM CDT 04/20/2023 8:34 AM CDT Coni Hawk MD LAB - CHEMISTRY ORDERABLES Performing Organization Address [facility] Co de Phone Number [address] [address] * OCCULT BLOOD FECES IMMUNOASSAY (04/05/2018 7:47 AM CDT) [facility] Occult Blood Immunoassay Negative Negative 04/05/2018 8:51 AM CDT [facility] Stool STOOL SPECIMEN / Unknown Collection / Unknown 04/05/2018 7:47 AM CDT 04/05/2018 7:47 AM CDT LAB - MICROBIOLOGY O RDERABLES Performing Organization Address City/[facility]/ZIP Co de Phone Number [facility] [address] [place] [address] * HEPATITIS C ANTIBODY (03/28/2018 8:36 AM CDT) Hepatitis C Antibody <0.1 0.0 - 0.9 s/co ratio [facility] ACCOUNT BILL Comment: Negative: < 0.8 Indeterminate: 0.8 - 0.9 Positive: > 0.9 . The CDC recommends that a positive HCV antibody result be followed up with a HCV Nucleic Acid Amplification test (289320). FASTING Blood BLOOD SPECIMEN / Unknown 03/28/2018 8:36 AM CDT 03/28/2018 Narrative Resulting Agency Comment [facility] [address] [facility] [id number] Odalis Guerrero MD LAB - CHEMISTRY OR DERABLES [facility] ACCOUNT BILL [address] [place] [address] * MAMMOGRAM DIGITAL SCREENING BILATERAL G0202 (10/23/2017 [...] been scanned as a document/letter in the [employer] EMR (media tab). If there are questions regarding this information or our Cancer Genetics Risk Assessment Program, please do not hesitate to contact [phone]. Narrative 10/23/2017 10:53 AM CDT Bilateral mammography. Most recent comparison: 2016 History: Screening mammogram. Technique: Bilateral breasts. Mammography views included: CC and MLO. Images interpreted with CAD. Following current [facility] protocol, 3D mammographic tomosynthesis images were obtained and reviewed on a dedicated viewing station. FINDINGS: Breast composition: Heterogeneously dense which may obscure small masses. No suspicious calcifications, masses, or areas of architectural distortion. Neo Garcia MD MAMMO ORDERABLES from Last 3 Months or Most Recently Relevant to Health Maintenance Advance Directives Documents on File Type Date Recorded Patient Divine Healer Expl anation Adv Directive/Living Will/POA 09/21/2016 7:56 PM * Full Code (Latest Code Status on File) Date Activated Date Inactivated Comments 09/20/2016 8:58 AM 09/21/2016 3:41 PM Care Teams Digital Content Coordinator Relationship Specialty [place] [address] [place] [address] PCP - General Internal Medicine 01/23/20 Tyree Cm, RN Cotton Classer 09/21/16 [place] [address] [place] [address] Endocrinology 11/18/18
--- OUTSIDE RECORDS SUMMARY | 2024-08-25 13:46 | XMS_ITS | Encounter Summary ---
Author Organization [facility] Address [address] [place] [address] Care Team Providers Care Binder Lockstitch Name Role Phone Bhavani Cm RN Unavailable [phone] Coni Hawk MD Unavailable [phone] Madelin Jaeger MD Primary Care Provider [phone] Shawnee Marshall DO Primary Care Provider [phone] Encounter Details Date Type Department Care Team (Late st Contact Info) Description 09/05/2019 Lab Requisition [facility] - Laboratory [address] [place] [address] Social History Tobacco Use Types Packs/Day Years Used Date Smoking Tobacco: Former Cigarettes Q uit: 1991 Smokeless Tobacco: Never Alcohol Use Standard Drinks/Week Comments [...] Description 04/16/2025 8:40 AM CDT Office Visit [facility] - Endocrinology [address] [place], [address] [address] [place] [address] [address] documented as of this encounter Visit Diagnoses Not on filedocumented in this encounter Additional Health Concerns Infection Onset Date Last Indicated Resolved Time COVID-19 Under Investigation 02/01/2020 02/01/2020 02/01/2020 9:41 AM CDT COVID-19 Under Investigation 02/01/2020 02/01/2020 02/02/2020 6:20 AM CDT COVID-19 Under Investigation 04/23/2020 04/23/2020 04/25/2020 6:35 PM ASSISTED LIVING ASSOCIATE documented as of this encounter Care Teams Binder Lockstitch Relationship Specialty Start Date End Date Madelin Jaeger MD [address] [place] [address] PCP - General 06/19/19 01/22/20 Shawnee Marshall DO [address] [place] [address] PCP - General Internal Medicine 01/23/20 Bhavani Cm, RN Preschool Principal 09/21/16 Con[place] Hawk [place] [address] [place] [address] Endocrinology 11/18/18 documented as of this encounter
--- OUTSIDE RECORDS SUMMARY | 2024-08-25 13:46 | XMS_ITS | Patient Health Summary ---
Author Organization [facility] Address [address] [place] [address] Care Team Providers Care Keno Clerk Name Role Phone Tyree Cm RN Unavailable [phone] Coni Hawk MD Unavailable [phone] Shawnee Marshall DO Primary Care Provider [phone] Note from [facility],non-owned Affiliates and Associated Physician Practices is amultiple site organization consisting of ambulatory clinics and hospital sitesin [place], [place], [place] and [place]. This disclosure is being madepursuant to the Care Everywhere program and may not contain all information available regarding this patient. Last updated 18.[facility] Allergies * Chlorhexidine(Rash) -Medium Criticality * Nickel(Urticaria,Itching) -Medium Criticality Medications * Be aware that medications may not be up to date on this document. Alwaysverify current medications with the patient. * Feverfew 380 MG Take 1 Tab by mouth once daily as needed * Multiple Vitamin (MULTI VITAMIN PO) Take 1 Tab by mouth once daily * [place]-3 Fatty Acids (ULTRA OMEGA 3 PO) Take 1 Tab by mouth once daily Reported on 09/15/2016 * Cyanocobalamin (VITAMIN B12) 1000 MCG TBCR Take 1 Tab by mouth once daily * Ascorbic Acid (VITAMIN C) 500 MG Take 1 Tab by mouth once daily * Zinc 50 MG Take 1 Tab by mouth once daily * Vitamin D-Vitamin K (VITAMIN K2-VITAMIN D3 PO) Take 1 Tab by mouth once daily * lisinopril (Prinivil; Zestril) 10 MG tablet(Started 03/25/2023) Take 1 (one) tablet by mouth once daily * Levoxyl 50 MCG tablet(Started 06/22/2024) Take 1 (one) tablet by mouth once daily 1 refill by 06/22/2025 Active Problems Problem Noted Date Diagnosed Date Iron deficiency anemia 03/26/2018 Elevated blood pressure read ing without diagnosis of hypertension 03/26/2018 Vaginal cuff granuloma 07/03/2017 Status post hysterectomy 05/08/2017 Resolved Problems Problem Noted Date Diagnosed Date Resolved Date Screening for condition 06/29/201602/2018 Immunizations * INFLUENZA VACCINE(Given 04/17/2018) Social History Tobacco Use Types Packs/Day Years [...] Mass Index 23.73 04/16/2024 8:41 AM CDT Procedures * T3 TOTAL(Performed 04/18/2024) Performed for Nodular goiter, non-toxic * T4 FREE(Performed 04/18/2024) Performed for Nodular goiter, non-toxic * TSH(Performed 04/18/2024) Performed for Nodular goiter, non-toxic * URINALYSIS REFLEX TO MICROSCOPIC NO CULTURE(Performed 04/20/2023) Performed for Primary hypertension * CBC W AUTO DIFFERENTIAL(Performed 04/20/2023) Performed for Nodular goiter, non-toxic, Thyroiditis, Post-menopausal, Healthcare maintenance, Encounter for screening mammogram for malignant neoplasm of breast, Primary hypertension * LIPID PROFILE(Performed 04/20/2023) Performed for Nodular goiter, non-toxic, Thyroiditis, Post-menopausal, Healthcare maintenance, Encounter for screening mammogram for malignant neoplasm of breast * COMPREHENSIVE METABOLIC PANEL(Performed 04/20/2023) Performed for Nodular goiter, non-toxic, Thyroiditis, Post-menopausal, Healthcare maintenance, Encounter for screening mammogram for malignant neoplasm of breast, Primary hypertension * T3 TOTAL(Performed 04/20/2023) Performed for Thyroiditis * T4 FREE(Performed 04/20/2023) Performed for Thyroiditis * TSH(Performed 04/20/2023) Performed for Thyroiditis * URINALYSIS MICROSCOPIC ONLY REFLEXED(Performed 04/13/2022) Performed for Healthcare maintenance * URINALYSIS W/MICROSCOPIC REFLEX TO CULTURE(Performed 04/13/2022) Performed for Healthcare maintenance * FSH + LH PANEL(Performed 04/13/2022) Performed for Post-menopausal * T3 TOTAL(Performed 04/13/2022) Performed for Thyroiditis * T4 FREE(Performed 04/13/2022) Performed for Thyroiditis * TSH(Performed 04/13/2022) Performed for Thyroiditis * CBC W AUTO DIFFERENTIAL(Performed 04/13/2022) Performed for Nodular goiter, non-toxic, Thyroiditis, Post-menopausal, Healthcare maintenance * COMPREHENSIVE METABOLIC PANEL(Performed 04/13/2022) Performed for Nodular goiter, non-toxic, Thyroiditis, Post-menopausal, Healthcare maintenance * LIPID PROFILE(Performed 04/13/2022) Performed for Healthcare maintenance * T3 TOTAL(Performed 12/16/2020) Performed for Nodular goiter, non-toxic, Thyroiditis * T4 FREE(Performed 12/16/2020) Performed for Nodular goiter, non-toxic, Thyroiditis * TSH(Performed 12/16/2020) Performed for Nodular goiter, non-toxic, Thyroiditis * T3 TOTAL(Performed 06/24/2020) Performed for Nodular goiter, non-toxic, Thyroiditis * T4 FREE(Performed 06/24/2020) Performed for Nodular goiter, non-toxic, Thyroiditis * TSH(Performed 06/24/2020) Performed for Nodular goiter, non-toxic, Thyroiditis * SARS-COV-2 (COVID-19) IN HOUSE(Performed 04/23/2020) Performed for Exposure to SARS-associated coronavirus * US SOFT TISSUE HEAD NECK(Performed 02/03/2020) Performed for Nodular goiter, non-toxic, Thyroiditis * SARS-COV-2 (COVID-19) IN HOUSE(Performed 02/01/2020) Performed for Exposure to Covid-19 Virus * THYROID AB PANEL (TPO AB+THYROGLOB AB)(Performed 01/23/2020) Performed for Nodular goiter, non-toxic, Thyroiditis * T3 TOTAL(Performed 01/23/2020) Performed for Nodular goiter, non-toxic, Thyroiditis * T4 FREE(Performed 01/23/2020) Performed for Nodular goiter, non-toxic, Thyroiditis * TSH(Performed 01/23/2020) Performed for Nodular goiter, non-toxic, Thyroiditis * NM THYROID UPTAKE AND SCAN(Performed 12/12/2018) Performed for Nodular goiter, non-toxic * THYROID AB PANEL (TPO AB+THYROGLOB AB)(Performed 11/18/2018) Performed for Nodular goiter, non-toxic, Thyroiditis * T3 TOTAL(Performed 11/18/2018) Performed for Nodular goiter, non-toxic * T4 FREE(Performed 11/18/2018) Performed for Nodular goiter, non-toxic * TSH(Performed 11/18/2018) Performed for Nodular goiter, non-toxic * US PELVIS W TRANSVAG W DOP NON OB(Performed 08/14/2018) Performed for Pelvic pain, History of ovarian cyst * US THYROID(Performed 08/14/2018) Performed for Goiter, nontoxic, multinodular * OCCULT BLOOD FECES IMMUNOASSAY(Performed 04/05/2018) * HEPATITIS C ANTIBODY(Performed 03/28/2018) Performed for Encounter for hepatitis C screening test for low risk patient * TSH(Performed 03/28/2018) Performed for Screening for thyroid disorder * COMPREHENSIVE METABOLIC PANEL(Performed 03/28/2018) Performed for Screening cholesterol level * CBC W AUTO DIFFERENTIAL(Performed 03/28/2018) Performed for Iron deficiency anemia, unspecified iron deficiency anemia type * LIPID PROFILE W TCHOL/HDL(Performed 03/28/2018) Performed for Screening cholesterol level * HEMOGLOBIN A1C(Performed 03/28/2018) Performed for Screening for diabetes mellitus * CT CHEST WO CONTRAST(Performed 10/29/2017) Performed for Atypical chest pain * MAMMO BILAT SCREENING(Performed 10/23/2017) Performed for Visit for screening mammogram * CARDIAC STRESS TEST ORDER(Performed 10/16/2017) * ECHOCARDIOGRAM STRESS(Performed 10/11/2017) Performed for Chest pain, unspecified type * XR CHEST 2VW(Performed 10/03/2017) Performed for Atypical chest pain * CARDIAC RHYTHM STRIP ORDER(Performed 09/22/2016) * CBC W AUTO DIFFERENTIAL(Performed 09/21/2016) Performed for Postop check * PATHOLOGY TISSUE EXAM (STL)(Performed 09/20/2016) Performed for Uterine prolapse * LAPAROSCOPIC ASSIST VAGINAL HYSTERECTOMY (LAVH)(Performed 09/20/2016) Performed for Uterine prolapse * COMPREHENSIVE METABOLIC PANEL(Performed 09/20/2016) Performed for Preop examination * CBC W AUTO DIFFERENTIAL(Performed 09/20/2016) Performed for Preop examination * HCG URINE QUALITATIVE - POINT OF CARE(Performed 09/20/2016) * IMAGING/RADIOLOGY/XRAY RESULTS ORDER(Performed 03/03/2016) * MAMMO BILAT SCREENING(Performed 03/01/2016) Performed for Visit for screening mammogram * US THYROID(Performed 04/30/2015) Performed for Non-toxic nodular goiter * LIPID PROFILE(Performed 04/29/2015) Performed for Subclinical iodine-deficiency hypothyroidism * THYROID PEROXIDASE ANTIBODY(Performed 04/29/2015) Performed for Subclinical iodine-deficiency hypothyroidism * THYROGLOBULIN ANTIBODY(Performed 04/29/2015) Performed for Subclinical iodine-deficiency hypothyroidism * T4 FREE(Performed 04/29/2015) Performed for Subclinical iodine-deficiency hypothyroidism * TSH(Performed 04/29/2015) Performed for Subclinical iodine-deficiency hypothyroidism * T3 FREE(Performed 04/29/2015) Performed for Subclinical iodine-deficiency hypothyroidism * VARICELLA ZOSTER ANTIBODY IGG(Performed 12/11/2014) * RUBEOLA ANTIBODY IGG(Performed 12/11/2014) * MUMPS ANTIBODY IGG(Performed 12/11/2014) * RUBELLA ANTIBODY IGG(Performed 12/11/2014) Results * TSH (04/18/2024 10:32 AM CDT) Only the most recent of9 resultswithin the time period is included. TSH 1.64 0.40 - 4.50 mIU/L [facility] Comment: Test Performed at: [facility] [id number] [place], [place] [address], [place] [address] CHUCKY AQUINO MD Blood BLOOD SPECIMEN / Unknown 04/18/2024 10:32 AM CDT 04/18/2024 10:32 AM CDT Coni Hawk MD LAB - CHEMISTRY ORDERABLES Performing Organization Address City/[facility]/ZIP Co de Phone Number [facility] [phone] [place] [address] * T4 FREE (04/18/2024 10:32 AM CDT) Only the most recent of8 resultswithin the time period is included. T4 Free 0.9 0.8 - 1.8 ng/dL [facility] Comment: Test Performed at: [employer] [id number] [facility] [place] [address] CHUCKY AQUINO MD Blood BLOOD SPECIMEN / Unknown 04/18/2024 10:32 AM CDT 04/18/2024 10:32 AM CDT Coni Hawk MD LAB - CHEMISTRY ORDERABLES Performing Organization Address [facility] Co de Phone Number [facility] [phone] [place] [address] * T3 TOTAL (04/18/2024 10:32 AM CDT) Only the most recent of7 resultswithin the time period is included. Pathologist [facility] T3 Total 97 76 - 181 ng/dL [facility] Comment: Test Performed at: [employer] [facility] [place] [address] CHUCKY AQUINO MD Blood BLOOD SPECIMEN / Unknown 04/18/2024 10:32 AM CDT 04/18/2024 10:32 AM CDT Coni Hawk MD LAB - CHEMISTRY ORDERABLES Performing Organization Address [facility]/ZIP Co de Phone Number [facility] [address] [place] [address] * URINALYSIS REFLEX TO MICROSCOPIC NO CULTURE (04/20/2023 8:29 AM CDT) Color UA YELLOW YELLOW [facility] Appearance CLEAR CLEAR [facility] Specific [place] UA 1.014 1.001 - 1.035 [facility] pH UA 7.5 5.0 - 8.0 [facility] Glucose UA NEGATIVE NEGATIVE [facility] Bilirubin UA NEGATIVE NEGATIVE [facility] Ketone UA NEGATIVE NEGATIVE [facility] Blood UA NEGATIVE NEGATIVE [facility] Protein UA NEGATIVE NEGATIVE [facility] Nitrite UA NEGATIVE NEGATIVE [facility] Leukocyte UA NEGATIVE NEGATIVE [facility] Comment: REPORT COMMENT: FASTING:YES Test Performed at: [address] [address] CHUCKY AQUINO MD WBC UA [facility] RBC UA [facility] Epithelial Cell UA [facility] Transitional Epithelial Cells [facility] Renal Epithelial Cells [facility] Bacteria UA [facility] Calcium Oxalate Crystals [facility] Triple Phosphate Crystals [facility] Uric Acid Crystals [facility] Amorphous UA [facility] Crystals UA [facility] Hyaline Casts [facility] Granular Casts [facility] Casts UA [facility] Yeast [facility] Comments [facility] Comment: REPORT COMMENT: FASTING:YES Test Performed at: [facility] [address] CHUCKY AQUINO MD Urine URINE SPECIMEN OBTAINED BY CLEAN CATCH PROCEDURE / Unknown 04/20/2023 8:29 AM CDT 04/20/2023 8:34 AM CDT Coni Hawk MD LAB - URINALYSIS ORDERABLES [address] [address] * CBC WITH DIFFERENTIAL (04/20/2023 8:29 AM CDT) Only the most recent of5 resultswithin the time period is included. White Blood Cell Count 5.8 3.8 - 10.8 Thousand/u L [facility] RBC 4.00 3.80 - 5.10 Million/uL [facility] Hemoglobin 13.0 11.7 - 15.5 g/dL [facility] Hematocrit 38.1 35.0 - 45.0 % [facility] MCV 95.3 80.0 - 100.0 fL [facility] MCH 32.5 27.0 - 33.0 pg [facility] MCHC 34.1 32.0 - 36.0 g/dL [facility] RDW 13.4 11.0 - 15.0 % [facility] Platelet Count 260 140 - 400 Thousand/u L [facility] MPV 10.6 7.5 - 12.5 fL [facility] Neutrophil Absolute 3352 1500 - 7800 cells/uL [facility] Absolute Bands [facility] Metamyelocytes Absolute [facility] Myelocytes Absolute [facility] Absolute Prolymphocytes [facility] Lymphocytes Absolute 1578 850 - 3900 cells/uL [facility] Absolute Monocytes 609 200 - 950 cells/uL [facility] Eosinophils Absolute 209 15 - 500 cells/uL [facility] Basophils Absolute 52 0 - 200 cells/uL [facility] Absolute Blasts [facility] nRBC Absolute [facility] Granulocytes % 57.8 % [facility] Band Neutrophil [facility] Metamyelocytes [facility] Myelocytes [facility] Promyelocytes [facility] Lymphocytes % 27.2 % [facility] Lymphocyte Reactive [facility] Monocytes % 10.5 % [facility] Eosinophils % 3.6 % [facility] Basophils % 0.9 % [facility] Comment: Test Performed at: [facility] [address] CHUCKY AQUINO MD Blasts [facility] nRBC [facility] Comments [facility] Comment: Test Performed at: [facility] [address] CHUCKY AQUINO MD Blood BLOOD SPECIMEN / Unknown 04/20/2023 8:29 AM CDT 04/20/2023 8:34 AM CDT Coni Hawk MD LAB - HEMATOLOGY ORDERABLES [address] [address] * COMPREHENSIVE METABOLIC PANEL (04/20/2023 8:29 AM CDT) Only the most recent of4 resultswithin the time period is included. Glucose 86 65 - 99 mg/dL [facility] Comment: Fasting reference interval BUN 19 7 - 25 mg/dL [facility] Creatinine 0.86 0.50 - 1.03 mg/dL [facility] eGFR by Cystatin C 78 > OR = 60 mL/min/1. 73m2 [facility] BUN/Creatinine Ratio SEE NOTE: 6 - 22 (calc) [facility] Comment: Not Reported: BUN and Creatinine are within reference range. Sodium 139 135 - 146 mmol/L [facility] Potassium 4.5 3.5 - 5.3 mmol/L [facility] Chloride 102 98 - 110 mmol/L [facility] CO2 28 20 - 32 mmol/L [facility] Calcium 9.8 8.6 - 10.4 mg/dL [facility] Protein Total 7.0 6.1 - 8.1 g/dL [facility] Albumin 4.4 3.6 - 5.1 g/dL [facility] Globulin Total 2.6 1.9 - 3.7 g/dL (calc) [facility] Albumin/Globulin Ratio 1.7 1.0 - 2.5 (calc) [facility] Bilirubin Total 0.5 0.2 - 1.2 mg/dL [facility] Alkaline Phosphatase 63 37 - 153 U/L [facility] AST 18 10 - 35 U/L [facility] ALT 18 6 - 29 U/L [facility] Comment: Test Performed at: [address] [address] CHUCKY AQUINO MD Blood BLOOD SPECIMEN / Unknown 04/20/2023 8:29 AM CDT 04/20/2023 8:34 AM CDT Coni Hawk MD LAB - CHEMISTRY ORDERABLES [address] [address] * (ABNORMAL) LIPID PROFILE (04/20/2023 8:29 AM CDT) Only the most recent of3 resultswithin the time period is included. Cholesterol 225(H) <200 mg/dL [facility] HDL Cholesterol [...] factors. LDL-C is now calculated using the Jorge-Rubio calculation, which is a validated novel method providing better accuracy than the Friedewald equation in the estimation of LDL-C. Jorge SS et al. RUSTY. 2013;310(19): 2101-7421 (http://education.[employer]/faq/UCM747) CHOL/HDLC RATIO 4.5 <5.0 (calc) [facility] Non HDL Cholesterol 175(H) <130 mg/dL (calc) [facility] Comment: For patients with diabetes plus 1 major ASCVD risk factor, treating to a non-HDL-C goal of <100 mg/dL (LDL-C of <70 mg/dL) is considered a therapeutic option. Test Performed at: [address] [address] CHUCKY AQUINO MD Blood BLOOD SPECIMEN / Unknown 04/20/2023 8:29 AM CDT 04/20/2023 8:34 AM CDT Coni Hawk MD LAB - CHEMISTRY ORDERABLES Performing Organization Address [facility] Co de Phone Number [address] [address] * URINALYSIS MICROSCOPIC ONLY REFLEXED (04/13/2022 10:42 AM CDT) WBC UA 0-5 0 - 5 /hpf [facility] ACCOUNT BILL RBC UA None seen 0 - 2 /hpf [facility] ACCOUNT BILL Epithelial Cells (non renal) 0-10 0 - 10 /hpf [facility] ACCOUNT BILL Epithelial Cells (renal) NOT AVAILABLE [facility] ACCOUNT BILL Comment:Result cannot be obt ained for this observation. Casts ua None seen None seen /lpf [facility] ACCOUNT BILL Casts UA NOT AVAILABLE [facility] ACCOUNT BILL Comment:Result cannot be obt ained for this observation. Crystals UA NOT AVAILABLE [facility] ACCOUNT BILL Comment:Result cannot be obt ained for this observation. Crystals UA NOT AVAILABLE [facility] ACCOUNT BILL Comment:Result cannot be obt ained for this observation. Mucus UA NOT AVAILABLE [facility] ACCOUNT BILL Comment:Result cannot be obt ained for this observation. Bacteria UA None seen None seen/Few [facility] ACCOUNT BILL Yeast UA NOT AVAILABLE [facility] ACCOUNT BILL Comment:Result cannot be obt ained for this observation. Trichomonas UA NOT AVAILABLE [facility] ACC[facility] BILL Comment:Result cannot be obt ained for this observation. Comment Urine NOT AVAILABLE [facility] ACCOUNT BILL Comment:Result cannot be obt ained for this observation. 04/13/2022 10:4 2 AM CDT 04/13/2022 Narrative Resulting Agency Comment Lab Testing performed at: [facility] [address] [id number] Coni Hawk MD LAB - URINALYSIS ORDERABLES Performing Organization Address City/[facility] Co de Phone Number [facility] ACCOUNT BILL [address] [place] [address] * URINALYSIS W/MICROSCOPIC REFLEX TO CULTURE (04/13/2022 10:42 AM CDT) Specific [place] UA 1.021 1.005 - 1.030 [facility] ACCOUNT BILL pH UA 6.5 5.0 - 7.5 [facility] ACCOUNT BILL Color UA Yellow Yellow [facility] ACCOUNT BILL Appearance Clear Clear [facility] ACCOUNT BILL Leukocyte UA Negative Negative [facility] ACCOUNT BILL Protein UA Negative Negative/Tra ce [facility] ACCOUNT BILL Glucose UA Negative Negative [facility] ACCOUNT BILL Ketone UA Negative Negative [facility] ACCOUNT BILL Occult Blood Urine Negative Negative [facility] ACCOUNT BILL Bilirubin UA Negative Negative [facility] ACCOUNT BILL Urobilinogen 0.2 0.2 - 1.0 mg/dL [facility] ACCOUNT BILL Nitrite UA Negative Negative [facility] ACCOUNT BILL Microscopic Examination Urine [facility] ACCOUNT BILL Comment:Microscopic follows if indicated. Microscopic Examination Urine See below: [facility] ACCOUNT BILL Comment:Microscopic was jon cated and was performed. Urinalysis Reflex [facility] ACCOUNT BILL Comment:This specimen will n ot reflex to a Urine Culture. Urine URINE SPECIMEN OBTAINED BY CLEAN CATCH PROCEDURE / Unknown 04/13/2022 10:42 AM CDT 04/13/2022 Narrative Resulting Agency Comment Lab Testing performed at: [facility] [id number] Coni Hawk MD LAB - URINALYSIS ORDERABLES Performing Organization Address [facility] Co de Phone Number [facility] ACCOUNT BILL [address] [place] [address] * FSH + LH PANEL (04/13/2022 10:34 AM CDT) LH 42.0 mIU/mL [facility] ACCOUNT BILL Comment: LH Reference Range Normal Menstruating Females Follicular Phase 1.80 - 11.78 mIU /mL Mid-Cycle Phase 7.59 - 89.08 mIU /mL Luteal Phase 0.56 - 14.00 mIU /mL Postmenopausal Females without HRT 5.16-61.99 mIU/m L Males 0.57 - 12.07 mIU /mL FSH Reference Range Normal Menstruating Females Follicular Phase 3.03 - 8.08 mIU /mL Mid-Cycles Phase 2.55 - 16.69 mIU /mL Luteal Phase 1.38 - 5.47 mIU /mL Post Menopausal Females 26.72 - 133.41 mIU /mL Males 0.95 - 11.95 mIU/ mL FSH 96.23 mIU/mL [facility] ACCOUNT BILL Comment:FASTING Blood BLOOD SPECIMEN / Unknown 04/13/2022 10:34 AM CDT 04/13/2022 Narrative Resulting Agency Comment Lab Testing performed at: [facility] [address] [facility] [phone] Coni Hawk MD LAB - CHEMISTRY ORDERABLES [facility] ACCOUNT BILL [address] [place] [address] * EMPLOYEE HEALTH COVID TESTS - ST[facility] (04/23/2020 3:19 PM [facility]) Only the most recent of2 resultswithin the time period is included. COVID-19 PCR Not detected Not detected 04/25/2020 6:35 PM [facility] MICROBIOLOGY Microbiology SPECIMEN FROM NASOPHARYNGEAL STRUCTURE / Unknown Collection / Unknown 04/23/2020 3:19 PM [facility] 04/23/2020 3:19 PM [facility] Narrative [facility]CRO[facility] - 04/25/2020 6:35 PM [facility] This Real Time RT-PCR assay was developed and its performance characteristics determined by [facility][1] Microbiology Laboratory. This test has been authorized by the Food and Drug administration (FDA)under an Emergency Use Authorization (EUA). This test has been validated in accordance with the FDA's guidance document Policy for Diagnostic Testing in Laboratories Certified to perform High Complexity Testing under CLIA prior to Emergency Use Authorization for Coronavirus Disease-2019 during the Public Health Emergency issued on August 16, 2019. FDA independent review of this validation is pending. This test is only authorized for the duration of time the declaration that circumstances exist justifying the authorization of emergency use of in vitro diagnostic tests for detection of SARS-CoV-2 virus and/or diagnosis of COVID-19 infection under section 564(b)(1) of the Act, 21 U.S.C 360bbb-3 (b)(1), unless the authorization is terminated or revoked sooner. Fact Sheets for this EUA assay are available upon request. Nancy Neil DIRECTOR PATIENT FINANCIAL SERVICES-[employer] LAB - MICROBIOLOGY ORDERABLES [facility] [address] [place] [address], [facility] [phone] * US SOFT TISSUE HEAD NECK (02/03/2020 8:34 AM CDT) Anatomical Region Laterality Modality Head Ultrasound 02/03/2020 3:54 PM CDT Addenda Addendum by Phoenix Eddy MD on 05/12/2020 11:36 AM [facility] Impression clarification due to voice recognition error There is a hypoechoic nodule in the left lobe of the thyroid measuring 6 mm the largest area of nodularity 9 mm. Therefore, although Ti-Rads 3, no FNA is recommend given the size was 1.5 cm.. No further follow-up for this nodule recommended as this is a cyst nodule less than 1.5 cm in size superimposed upon a generally heterogeneous thyroid gland. *Addending Radiologist: Phoenix Eddy on 05/12/2020 at 11:33 AM Impressions 02/03/2020 4:00 PM CDT Both lobes of the thyroid are smaller in 2015. Heterogeneous thyroid tissue the largest nodule on the left is at Ti-Rads category 3: Mildly suspicious. However, given that the nodule is less than than 1.5 cm presently, no ultrasound imaging the largest nodule is a hypoechoic smoothly marginated about 8 mm nodule, also Ti-Rads 3. *Reading Radiologist: Phoenix Eddy on 02/03/2020 at 4:00 PM Narrative 02/03/2020 4:00 PM CDT Ultrasound soft tissue head and neck/thyroid HISTORY: Thyroid nodules COMPARISON: August 14, 2018. Comparison April 30, 2015 Right lobe-5.9 x 2.2 x 2.7 cm. Left lobe-5.6 x 2.1 x 2.3 cm. Comparing to the 2015 exam the thyroid is smaller. Heterogeneous thyroid tissue. No nodule is identified within the right lobe that is larger than a hypoechoic nodule measuring about 8 mm. On the left, heterogeneity with nodularity to the surface. The largest hypoechoic nodule measures about 9 mm Procedure Note Phoenix Eddy MD - 02/03/2020 Ultrasound soft tissue head and neck/thyroid HISTORY: Thyroid nodules COMPARISON: August 14, 2018. Comparison April 30, 2015 Right lobe-5.9 x 2.2 x 2.7 cm. Left lobe-5.6 x 2.1 x 2.3 cm. Comparing to the 2015 exam the thyroid is smaller. Heterogeneous thyroid tissue. No nodule is identified within the right lobe that is larger than a hypoechoic nodule measuring about 8 mm. On the left, heterogeneity with nodularity to the surface. The largest hypoechoic nodule measures about 9 mm IMPRESSION Both lobes of the thyroid are smaller in 2015. Heterogeneous thyroid tissue the largest nodule on the left is at Ti-Rads category 3: Mildly suspicious. However, given that the nodule is less than than 1.5 cm presently, no ultrasound imaging the largest nodule is a hypoechoic smoothly marginated about 8 mm nodule, also Ti-Rads 3. *Reading Radiologist: Phoenix Eddy on 02/03/2020 at 4:00 PM Coni Hawk MD US ORDERABLES * (ABNORMAL) THYROID AB PANEL (TPO AB+THYROGLOB AB) (01/23/2020 2:39 PM CDT) Only the most recent of2 resultswithin the time period is included. Thyroid Peroxidase TPO Antibody 190(H) 0 - 34 IU/mL [facility] ACCOUNT BILL Thyroglobulin Antibody 2.4(H) 0.0 - 0.9 IU/mL [facility] ACCOUNT BILL Comment:Thyroglobulin Antibo dy measured by Arsenio Toyin Methodology Blood BLOOD SPECIMEN / Unknown 01/23/2020 2:39 PM CDT 01/23/2020 Narrative Resulting Agency Comment [facility] [address] [facility] [phone] Coni Hawk MD LAB - CHEMISTRY ORDERABLES [facility] ACCOUNT BILL [address] [place] [address] * NM THYROID UPTAKE AND SCAN (12/12/2018 2:26 PM CDT) Anatomical Region Laterality Modality Chest Nuclear Medicine 12/12/2018 2:46 PM CDT Impressions 12/12/2018 2:50 PM CDT Calculated 6-hour uptake of 18.0% which is within normal limits. Diffusely inhomogeneous but otherwise relatively symmetric activity corresponding to the multinodular thyroid goiter seen on sonography. There is no suggestion of a single dominant mass. Reading Radiologist: Ronen Leonard MD on 12/12/2018 at 2:50 PM Narrative 12/12/2018 2:50 PM CDT Nuclear medicine thyroid scan and uptake: History: Multinodular thyroid goiter with dysphagia, hair loss, fatigue, weight gain, night sweats. Thyroid function studies normal . Technique: Following oral administration of 200 microcuries I-123, a thyroid scan was obtained in multiple projections with a 6-hour uptake evaluation also obtained. Comparison is made to an ultrasound thyroid study on 08/14/2018. Findings: The thyroid images in multiple projections show diffusely inhomogeneous but otherwise relatively symmetric activity corresponding to the multinodular thyroid goiter seen on sonography. The calculated 6-hour uptake is 18.0% (normal, 6-20%) which is within normal limits. Procedure Note Ronen Leonard MD - 12/12/2018 Nuclear medicine thyroid scan and uptake: History: Multinodular thyroid goiter with dysphagia, hair loss, fatigue, weight gain, night sweats. Thyroid function studies normal . Technique: Following oral administration of 200 microcuries I-123, a thyroid scan was obtained in multiple projections with a 6-hour uptake evaluation also obtained. Comparison is made to an ultrasound thyroid study on 08/14/2018. Findings: The thyroid images in multiple projections show diffusely inhomogeneous but otherwise relatively symmetric activity corresponding to the multinodular thyroid goiter seen on sonography. The calculated 6-hour uptake is 18.0% (normal, 6-20%) which is within normal limits. IMPRESSION Calculated 6-hour uptake of 18.0% which is within normal limits. Diffusely inhomogeneous but otherwise relatively symmetric activity corresponding to the multinodular thyroid goiter seen on sonography. There is no suggestion of a single dominant mass. Reading Radiologist: Ronen Leonard MD on 12/12/2018 at 2:50 PM Coni Hawk MD NM ORDERABLES * US PELVIS W TRANSVAG W DOP NON OB (08/14/2018 2:26 PM [facility]) Anatomical Region Laterality Modality Pelvis Ultrasound 08/14/2018 2:29 PM [facility] Impressions 08/14/2018 2:30 PM [facility] Impression Patient is status post hysterectomy. The ovaries appear to be unremarkable. Reading Radiologist: Umu Arrington MD on 08/14/2018 at 2:30 PM Narrative 08/14/2018 2:30 PM [facility] Examination: Pelvic ultrasound with transvaginal and Doppler imaging HISTORY: Pelvic and perineal pain, left lower quadrant pain There are no prior studies available for comparison. The patient is status post hysterectomy. The right ovary is visualized measuring 1.3 x 0.8 5.5 cm. The left ovary measures 2.4 x 1.4 x 0.9 cm. No dominant cystic or solid mass is noted. Normal color flow and Doppler waveform is seen. No free fluid noted. Procedure Note Fortino Arrington MD - 08/14/2018 Examination: Pelvic ultrasound with transvaginal and Doppler imaging HISTORY: Pelvic and perineal pain, left lower quadrant pain There are no prior studies available for comparison. The patient is status post hysterectomy. The right ovary is visualized measuring 1.3 x 0.8 5.5 cm. The left ovary measures 2.4 x 1.4 x 0.9 cm. No dominant cystic or solid mass is noted. Normal color flow and Doppler waveform is seen. No free fluid noted. IMPRESSION Impression Patient is status post hysterectomy. The ovaries appear to be unremarkable. Reading Radiologist: Umu Arrington MD on 08/14/2018 at 2:30 PM Ale Salter MD US ORDERABLES * US THYROID (08/14/2018 2:06 PM [facility]) Only the most recent of2 resultswithin the time period is included. Anatomical Region Laterality Modality Chest Ultrasound 08/14/2018 2:30 PM [facility] Impressions 08/14/2018 2:46 PM [facility] Enlarged inhomogeneous thyroid with bilateral nodules as described above with the largest measuring 1 cm on the left which is similar in size when compared to the prior study. This could be related to goiter or thyroiditis. Continued ultrasound surveillance is recommended. Reading Radiologist: Umu Arrington MD on 08/14/2018 at 2:46 PM Narrative 08/14/2018 2:46 PM [facility] Examination: Thyroid ultrasound HISTORY: Enlarged thyroid Comparison is made to 04/30/2015. The right lobe measures 5.9 x 2.2 x 2.7 cm the left lobe measures 5.6 x 2.1 x 2.3 cm. The isthmus measures 0.6 cm in thickness. Once again the thyroid is diffusely inhomogeneous and lobular. There is a subcentimeter cystic nodule noted within the midpole of the right lobe measuring 0.5 x 0.4 x 0.4 cm. There is a 1 x 0.8 x 0.8 cm solid appearing nodule in the upper pole of the left lobe which is similar to the prior study. No adjacent adenopathy. Procedure Note Fortino Arrington MD - 08/14/2018 Examination: Thyroid ultrasound HISTORY: Enlarged thyroid Comparison is made to 04/30/2015. The right lobe measures 5.9 x 2.2 x 2.7 cm the left lobe measures 5.6 x 2.1 x 2.3 cm. The isthmus measures 0.6 cm in thickness. Once again the thyroid is diffusely inhomogeneous and lobular. There is a subcentimeter cystic nodule noted within the midpole of the right lobe measuring 0.5 x 0.4 x 0.4 cm. There is a 1 x 0.8 x 0.8 cm solid appearing nodule in the upper pole of the left lobe which is similar to the prior study. No adjacent adenopathy. IMPRESSION Enlarged inhomogeneous thyroid with bilateral nodules as described above with the largest measuring 1 cm on the left which is similar in size when compared to the prior study. This could be related to goiter or thyroiditis. Continued ultrasound surveillance is recommended. Reading Radiologist: Umu Arrington MD on 08/14/2018 at 2:46 PM Shawnee Marshall DO US ORDERABLES * OCCULT BLOOD FECES IMMUNOASSAY (04/05/2018 7:47 AM CDT) Occult Blood Immunoassay Negative Negative 04/05/2018 8:51 AM CDT [facility] Stool STOOL SPECIMEN / Unknown Collection / Unknown 04/05/2018 7:47 AM CDT 04/05/2018 7:47 AM CDT LAB - MICROBIOLOGY O RDERABLES [facility] [address] [id number] * (ABNORMAL) LIPID PROFILE W TCHOL/HDL (03/28/2018 8:36 AM CDT) Cholesterol 221(H) 100 - 199 mg/dL [facility] ACCOUNT BILL Triglycerides 169(H) 0 - 149 mg/dL [facility] ACCOUNT BILL HDL Cholesterol 63 >39 mg/dL [facility] ACCOUNT BILL Comment: Effective April 08, 2018, HDL Cholesterol reference interval will be changing to: Male Female 40 - [id number] 50 - [id number] VLDL Calculated 34 5 - 40 mg/dL [facility] ACCOUNT BILL LDL Calculated 124(H) 0 - 99 mg/dL [facility] ACCOUNT BILL Comment NOT NEEDED [facility] ACCOUNT BILL Comment:Ancillary determined the test is not needed Cholesterol/HDL Ratio 3.5 0.0 - 4.4 ratio [facility] ACCOUNT BILL Comment: T. Chol/HDL Ratio Men Women 1/2 Avg.Risk 3.4 3.3 Avg.Risk 5.0 4.4 2X Avg.Risk 9.6 7.1 3X Avg.Risk 23.4 11.0 FASTING Blood BLOOD SPECIMEN / Unknown 03/28/2018 8:36 AM CDT 03/28/2018 Narrative Resulting Agency Comment [facility] [address] [facility] [id number] Odalis Guerrero MD LAB - CHEMISTRY OR DERABLES [facility] ACCOUNT BILL [address] [place] [address] * (ABNORMAL) HEMOGLOBIN A1C (03/28/2018 8:36 AM CDT) Hemoglobin A1c 5.7(H) 4.8 - 5.6 % [facility] ACCOUNT BILL Comment: . Prediabetes: 5.7 - 6.4 Diabetes: >6.4 Glycemic control for adults with diabetes: <7.0 FASTING Blood BLOOD SPECIMEN / Unknown 03/28/2018 8:36 AM CDT 03/28/2018 Narrative Resulting Agency Comment [facility] [address] [facility] [id number] Odalis Guerrero MD LAB - CHEMISTRY OR DERABLES Performing Organization Address City/[facility] Co de Phone Number [facility] ACCOUNT BILL [address] [place] [address] * HEPATITIS C ANTIBODY (03/28/2018 8:36 AM CDT) Hepatitis C Antibody <0.1 0.0 - 0.9 s/co ratio [facility] ACCOUNT BILL Comment: Negative: < 0.8 Indeterminate: 0.8 - 0.9 Positive: > 0.9 . The CDC recommends that a positive HCV antibody result be followed up with a HCV Nucleic Acid Amplification test (209457). FASTING Blood BLOOD SPECIMEN / Unknown 03/28/2018 8:36 AM CDT 03/28/2018 Narrative Resulting Agency Comment [facility] [address] [facility] [phone] Odalis Guerrero MD LAB - CHEMISTRY OR DERABLES Performing Organization Address City/[facility] Co de Phone Number [facility] ACCOUNT BILL [address] [place] [address] * CT CHEST WO CONTRAST (10/29/2017 9:28 AM CDT) Anatomical Region Laterality Modality Chest Computed Tomogra phy 10/29/2017 12:4 3 PM CDT Impressions 10/29/2017 12:46 PM CDT Lungs essentially clear. Hyperdensity on recent radiographs reflects degenerative endplate sclerosis at T9-10. Nonobstructing left renal stone. Narrative 10/29/2017 12:46 PM CDT Procedure Title: CT CHEST WO CONTRAST*[id number] HISTORY: Other chest pain COMPARISON: Chest radiographs 10/03/2017. TECHNIQUE: Helical CT acquisition without intravenous contrast of the chest. FINDINGS: Visualized thyroid appears enlarged; no focal nodule. No adenopathy in the chest. Heart and great vessels unremarkable. A few scattered areas of mild scarring at the lung bases. Lungs are otherwise clear without effusion. Hyperdensity seen on recent radiographs reflects endplate sclerosis at T9-10. Degenerative changes are seen elsewhere along the visualized spine, but this is the most prominent level. No acute osseous abnormality. Nonobstructing left renal stone. Visualized upper abdomen otherwise unremarkable. Procedure Note Rj Eid MD - 10/29/2017 Procedure Title: CT CHEST WO CONTRAST*[id number] HISTORY: Other chest pain COMPARISON: Chest radiographs 10/03/2017. TECHNIQUE: Helical CT acquisition without intravenous contrast of the chest. FINDINGS: Visualized thyroid appears enlarged; no focal nodule. No adenopathy in the chest. Heart and great vessels unremarkable. A few scattered areas of mild scarring at the lung bases. Lungs are otherwise clear without effusion. Hyperdensity seen on recent radiographs reflects endplate sclerosis at T9-10. Degenerative changes are seen elsewhere along the visualized spine, but this is the most prominent level. No acute osseous abnormality. Nonobstructing left renal stone. Visualized upper abdomen otherwise unremarkable. IMPRESSION Lungs essentially clear. Hyperdensity on recent radiographs reflects degenerative endplate sclerosis at T9-10. Nonobstructing left renal stone. K Danial Jaeger MD CT ORDERABLES * MAMMOGRAM DIGITAL SCREENING BILATERAL [id number] (10/23/2017 9:07 AM CDT) Only the most recent of2 resultswithin the time period is included. Anatomical Region Laterality Modality Breast Bilateral Mammography [...] been scanned as a document/letter in the [employer] EMR (media tab). If there are questions regarding this information or our Cancer Genetics Risk Assessment Program, please do not hesitate to contact [phone]. Narrative 10/23/2017 10:53 AM CDT Bilateral mammography. Most recent comparison: 2015 History: Screening mammogram. Technique: Bilateral breasts. Mammography views included: CC and MLO. Images interpreted with CAD. Following current [facility] protocol, 3D mammographic tomosynthesis images were obtained and reviewed on a dedicated viewing station. FINDINGS: Breast composition: Heterogeneously dense which may obscure small masses. No suspicious calcifications, masses, or areas of architectural distortion. Neo Garcia MD MAMMO ORDERABLES * CARDIAC STRESS TEST ORDER (10/16/2017 9:55 PM CDT) Narrative 10/16/2017 9:55 PM CDT Ordered by an unspecified provider. Scanned Document CARDIAC SERVICES ORD ERABLES * ECHOCARDIOGRAM STRESS Walking Stress ECHO (10/11/2017 2:17 PM CDT) 10/11/2017 2:17 PM CDT Narrative [facility] - 10/11/2017 3:55 PM CDT Exercise Stress Echocardiography Name: TYREE CALVO MR #: [id number] Study date: 11-Oct-2017 : 1965 Age: 52 years Gender: Female Height: 66 in Weight: 148 lb BSA: 1.76 m Allergies: NICKEL REFERRING PHYSICIAN: Shashank Victor MD CRM MARKETING ANALYST: Mainor [employer]WR[employer] DOG FOOD DOUGH MIXER: Shashank Victor MD CLINICAL QUESTION: Detection of coronary artery disease. REST ECG: Normal baseline ECG. PROCEDURE: Treadmill exercise testing was performed, using the Kaiden protocol. Stress and rest echocardiographic evaluation with 2D imaging was performed from multiple acoustic windows for evaluation of ventricular function. Systolic blood pressure was 150 mmHg, at the start of the study. Diastolic blood pressure was 88 mmHg, at the start of the study. The heart rate was 67 bpm, at the start of the study. KAIDEN PROTOCOL: HR bpm SBP mmHg DBP mmHg Symptoms ST change Rhythm/conduct Baseline 67 150 88 none none NSR, no ectopy Stage 1 125 186 90 none -- -- Stage 2 137 228 94 none -- -- Recovery 1 144 240 108 none -- -- Recovery 2 116 216 102 -- -- -- Recovery 3 96 170 100 -- -- -- Recovery 5 99 178 106 -- -- -- No medications or fluids given. STRESS SUMMARY: Duration of exercise was 6 min and 13 sec. The patient exercised to protocol stage 2. Maximal work rate was 7.3 METs. Functional capacity was normal. Maximal heart rate during stress was 169 bpm ( 101 % of maximal predicted heart rate). Target heart rate was achieved. The heart rate response to stress was normal. Maximal systolic blood pressure during stress was 240 mmHg. There was normal resting blood pressure with an appropriate response to stress. The rate-pressure product for the peak heart rate and blood pressure was [address]. There was no chest pain during stress. The stress test was terminated due to achievement of target heart rate and hypertension. The stress ECG was normal. There were no stress arrhythmias or conduction abnormalities. STRESS 2D ECHOCARDIOGRAPHIC RESULTS: BASELINE: There were no regional wall motion abnormalities. Left ventricular size was normal. Overall left ventricular systolic function was normal. Estimated left ventricular ejection fraction was in the range of 55 % to 65 %. PEAK STRESS: There were no regional wall motion abnormalities. There was an appropriate reduction in left ventricular size. There was an appropriate augmentation in LV function. OTHER ECHOCARDIOGRAPHIC FINDINGS: There was no evidence for left ventricular dynamic outflow obstruction. SUMMARY: - Stress results: Duration of exercise was 6 min and 13 sec. Maximal work rate was 7.3 METs. Target heart rate was achieved. There was no chest pain during stress. - ECG conclusions: The stress ECG was normal. - Baseline: There were no regional wall motion abnormalities. Estimated left ventricular ejection fraction was in the range of 55 % to 65 %. - Peak stress: There were no regional wall motion abnormalities. IMPRESSIONS: Normal study after maximal exercise. Left ventricular systolic function was normal. Prepared and signed by Shashank Victor MD Signed 11-Oct-2017 15:55:18 Procedure Note Shashank Victor MD - 10/11/2017 Exercise Stress Echocardiography Name: TYREE CALVO MR #: [id number] Study date: 11-Oct-2017 : 1965 Age: 52 years Gender: Female Height: 66 in Weight: 148 lb BSA: 1.76 m Allergies: NICKEL REFERRING PHYSICIAN: Shashank Victor MD CRM MARKETING ANALYST: Mainor Pascual READING DOG FOOD DOUGH MIXER: Shashank Victor MD CLINICAL QUESTION: Detection of coronary artery disease. REST ECG: Normal baseline ECG. PROCEDURE: Treadmill exercise testing was performed, using the Kaiden protocol. Stress and rest echocardiographic evaluation with 2D imaging was performed from multiple acoustic windows for evaluation of ventricular function. Systolic blood pressure was 150 mmHg, at the start of the study. Diastolic blood pressure was 88 mmHg, at the start of the study. The heart rate was 67 bpm, at the start of the study. KAIDEN PROTOCOL: HR bpm SBP mmHg DBP mmHg Symptoms ST change Rhythm/conduct Baseline 67 150 88 none none NSR, no ectopy Stage 1 125 186 90 none -- -- Stage 2 137 228 94 none -- -- Recovery 1 144 240 108 none -- -- Recovery 2 116 216 102 -- -- -- Recovery 3 96 170 100 -- -- -- Recovery 5 99 178 106 -- -- -- No medications or fluids given. STRESS SUMMARY: Duration of exercise was 6 min and 13 sec. The patient exercised to protocol stage 2. Maximal work rate was 7.3 METs. Functional capacity was normal. Maximal heart rate during stress was 169 bpm ( 101 % of maximal predicted heart rate). Target heart rate was achieved. The heart rate response to stress was normal. Maximal systolic blood pressure during stress was 240 mmHg. There was normal resting blood pressure with an appropriate response to stress. The rate-pressure product for the peak heart rate and blood pressure was 05454. There was no chest pain during stress. The stress test was terminated due to achievement of target heart rate and hypertension. The stress ECG was normal. There were no stress arrhythmias or conduction abnormalities. STRESS 2D ECHOCARDIOGRAPHIC RESULTS: BASELINE: There were no regional wall motion abnormalities. Left ventricular size was normal. Overall left ventricular systolic function was normal. Estimated left ventricular ejection fraction was in the range of 55 % to 65 %. PEAK STRESS: There were no regional wall motion abnormalities. There was an appropriate reduction in left ventricular size. There was an appropriate augmentation in LV function. OTHER ECHOCARDIOGRAPHIC FINDINGS: There was no evidence for left ventricular dynamic outflow obstruction. SUMMARY: - Stress results: Duration of exercise was 6 min and 13 sec. Maximal work rate was 7.3 METs. Target heart rate was achieved. There was no chest pain during stress. - ECG conclusions: The stress ECG was normal. - Baseline: There were no regional wall motion abnormalities. Estimated left ventricular ejection fraction was in the range of 55 % to 65 %. - Peak stress: There were no regional wall motion abnormalities. IMPRESSIONS: Normal study after maximal exercise. Left ventricular systolic function was normal. Prepared and signed by Shashank Victor MD Signed 11-Oct-2017 15:55:18 Ordering Provider Unlisted ECHO ORDER ELO [facility] * XR CHEST 2VW (10/03/2017 8:49 AM CDT) Anatomical Region Laterality Modality Chest Radiographic Crys ging 10/03/2017 8:53 AM CDT Impressions 10/03/2017 8:55 AM CDT No acute infiltrates. Narrative 10/03/2017 8:55 AM CDT History: Atypical chest pain COMPARISON: None FINDINGS: PA and lateral views of the chest demonstrate the lung lee to be clear bilaterally. There is no evidence of an effusion or a pneumothorax. The heart is normal in size normal mediastinal silhouette. A nonspecific hyperdensity seen projecting over the lower thoracic intervertebral space uneventfully lateral view noted of uncertain clinical significance. Procedure Note John Whitehead MD - 10/03/2017 History: Atypical chest pain COMPARISON: None FINDINGS: PA and lateral views of the chest demonstrate the lung lee to be clear bilaterally. There is no evidence of an effusion or a pneumothorax. The heart is normal in size normal mediastinal silhouette. A nonspecific hyperdensity seen projecting over the lower thoracic intervertebral space uneventfully lateral view noted of uncertain clinical significance. IMPRESSION No acute infiltrates. Madelin Jaeger MD DIAGNOSTIC IMAGING O RDERABLES * CARDIAC RHYTHM STRIP ORDER (09/22/2016 7:56 PM CDT) Narrative 09/22/2016 7:56 PM CDT Ordered by an unspecified provider. Scanned Document CARDIAC SERVICES ORD ERABLES * GROSS + MICRO EXAM (STL) (09/20/2016 8:22 AM CDT) Case Report Surgical Pathology Report Case: [id number] Authorizing Provider: Anna Howard MD Collected: 09/20/2016 08:22 AM Ordering Location: [facility] Received: 09/20/2016 11:41 AM Pathologist: Ronen Balderas MD Specimen: Uterus w Tubes, uterus and bilateral Fallopian tubes 09/21/2016 4:22 PM CDT [facility] Final Diagnosis Uterus, cervix, excision: - No pathologic diagnosis. Uterus, endometrium, excision: - Attenuated inactive endometrium with no hyperplasia or malignancy. Uterus, myometrium, excision: - Leiomyoma, diminutive. Fallopian tubes, right and left, excision: - No pathologic diagnosis. 09/21/2016 4:22 PM CDT [facility] Clinical History Preoperative diagnosis: Uterine prolapse (N81.4). Postoperative diagnosis: Uterine prolapse (N81.4). Clinical findings: Uterine prolapse (N81.4). 09/21/2016 4:22 PM CDT [facility] Gross Description In formalin labeled uterus and bilateral fallopian tubes is a 99 g, 9.5 x 5 x 4 cm uterine corpus with attached cervix. Serosa has a smooth, anne, glistening appearance and the posterior peritoneal reflection is 1 cm and the anterior peritoneal reflection is 2.5 cm above the ectocervical mucosal margin. Ectocervix is 3.6 cm in diameter with anne, glistening mucosa and central 1 cm diameter patent cervical os. Specimen is bivalved to reveal the endocervical canal is 4 x 1.2 cm in diameter with pink-anne striated lining. Normally-shaped endocervical cavity is 4 x 3 cm with smooth, anne lining up to 0.3 cm thick and a 0.3 cm anne-clayton, whorled, submucosal fibroid in the posterior half. The myometrium is up to 2 cm thick and has a mild trabeculated appearance. The right fimbriated fallopian tube is 6.8 x 0.8 cm with a few transparent, thin-walled cysts up to 1.2 cm in greatest dimension and the right fallopian tube is inked black. The left fimbriated fallopian tube is 6.5 x 0.8 cm diameter with multiple transparent smooth-walled cysts containing watery, clear fluid 0.2-1 cm in greatest dimension. Diagnostic Imaging Manager sections submitted. BLOCKS: A1 - anterior cervix. A2 - posterior cervix. A3 - anterior corpus transmural section. A4 - posterior corpus transmural section and submucosal fibroid. A5 - fallopian tubes, right inked black. ME/ETM/ns 09/21/2016 4:22 PM [facility] Microscopic Description Microscopic examination collaborates the diagnosis field. 09/21/2016 4:22 PM [facility] Disclaimer All histochemical and/or immunohistochemical results are interpreted with controls that demonstrate appropriate staining reactions before reporting results. Note on use of immunocytochemistry reagents: This test was developed and its performance characteristic determined by [facility], Department of Laboratory Medicine. It has not been cleared or approved by the U.S. Food and Drug Administration (FDA). The FDA has determined that such clearance or approval is not necessary. The test is used for clinical purpose. It should not be regarded as investigational or for research. This laboratory is certified to perform high complexity testing. 09/21/2016 4:22 PM [facility] Performed By [facility] at [facility], [address] [place] [address] 09/21/2016 4:22 PM [facility] Embedded Images 09/21/2016 4:22 PM [facility] Pathology/Cytolo gy UTERUS AND FALLOPIAN TUBES, CS / Unknown 09/20/2016 8:22 AM CDT 09/20/2016 11:41 AM CDT Anna Howard MD LAB - PATHOLOGY/CYTO LOGY ORDERABLES [facility] [address] [place] [address] * HCG URINE QUALITATIVE - POINT OF CARE (IP) (09/20/2016 6:00 AM CDT) HCG Qual Urine Negative Negative [facility] QC Verified Yes Yes [facility] POC T TESTING Urine URINE / Unknown 09/20/2016 6 :00 AM CDT Roger Villalpando MD LAB - POINT O F CARE ORDERABLES [facility] TEST[facility] [address] [facility] [employer] [address] * IMAGING/RADIOLOGY/XRAY RESULTS ORDER (03/03/2016 3:49 PM CDT) Anatomical Region Laterality Modality Other Narrative 03/03/2016 3:49 PM CDT Ordered by an unspecified provider. Scanned Document IMAGING * (ABNORMAL) THYROID PEROXIDASE ANTIBODY (04/29/2015 7:30 AM [facility]) Thyroid Peroxidase TPO Antibody 318.3(H) 0.0 - 9.0 IU/mL 04/30/2015 3:31 PM COATER [facility]ATE [place] ([facility]) Blood specimen (specimen) BLOOD SPECIMEN / Unknown Lab Venipuncture / Unknown 04/29/2015 7:30 AM COATER SLATE 04/29/2015 7:32 AM COATER SLATE Zach Grossman MD LAB - CHEMISTRY OR DERABLES Performing Organization Address City/[facility]/ZIP Co de Phone Number [place] [facility]) [address] * THYROGLOBULIN ANTIBODY (04/29/2015 7:30 AM COATER SLATE) Thyroglobulin Antibody 2.5 0.0 - 4.0 IU/mL 04/30/2015 3:54 PM COATER [facility]ATE [place] ([facility]) Comment: INTERPRETIVE INFORMATION: Thyroglobulin Antibody A value of 4.0 IU/mL or less indicates a negative result for thyroglobulin antibodies. The Thyroglobulin Antibody assay is being performed using the Arsenio ipadio Access DxI method. Blood specimen (specimen) BLOOD SPECIMEN / Unknown Lab Venipuncture / Unknown 04/29/2015 7:30 AM COATER [facility]ATE 04/29/2015 7:32 AM COATER SLATE Zach Grossman MD LAB - CHEMISTRY OR DERABLES [facility]) [address] * T3 FREE (04/29/2015 7:30 AM COATER [facility]ATE) T3 Free 2.74 2.18 - 3.98 pg/mL 04/29/2015 8:43 AM COATER [facility]ATE [facility] Blood BLOOD SPECIMEN / Unknown Lab Venipuncture / Unknown 04/29/2015 7:30 AM COATER [facility] 04/29/2015 7:32 AM COATER SLATE Zach Grossman MD LAB - CHEMISTRY OR DERABLES Performing Organization Address City/[facility]/ZIP Co de Phone Number [facility] [address] [place] [address] * RUBEOLA ANTIBODY IGG (12/11/2014 2:45 PM CDT) Pathologist [facility] Measles (Rubeola) Antibody IgG >300.0 AU/mL 12/14/2014 11:20 AM CDT [facility] ([facility]) Comment: INTERPRETIVE INFORMATION: Measles (Rubeola) Antibody, IgG 24.9 AU/mL or less........ Negative - No significant level of detectable measles (rubeola) IgG antibody. 25.0-29.9 AU/mL .......... Equivocal - Repeat testing in 10-14 days may be helpful. 30.0 AU/mL or greater .... Positive - IgG antibody to measles (rubeola) detected which may indicate a current or past exposure/immunization to measles (rubeola). The best evidence for current infection is a significant change on two appropriately timed specimens, where both tests are done in the same laboratory at the same time. Blood specimen (specimen) BLOOD SPECIMEN / Unknown Venipuncture / Unknown 12/11/2014 2:45 PM CDT 12/11/2014 5:48 PM CDT Provider Unknown LAB - CHEMISTRY JUSTA SCHULZ Performing Organization Address [facility] de Phone Number [place] ([facility]) [address] * MUMPS ANTIBODY IGG (12/11/2014 2:45 PM CDT) [facility] Mumps Virus Antibody IgG >300.0 AU/mL 12/14/2014 11:23 AM CDT [facility] [employer] ([facility]) Comment: INTERPRETIVE INFORMATION: Mumps Ab, IgG by [facility] 8.9 AU/mL or less .... Negative - No significant level of detectable IgG mumps virus antibody 9.0-10.9 AU/mL ....... Equivocal - Repeat testing in 10-14 days may be helpful 11.0 AU/mL or greater: Positive - IgG antibody to mumps virus detected, which may indicate a current or past exposure/ immunization to mumps virus. The best evidence for current infection is a significant change on two appropriately timed specimens, where both tests are done in the same laboratory at the same time. Blood specimen (specimen) BLOOD SPECIMEN / Unknown Venipuncture / Unknown 12/11/2014 2:45 PM CDT 12/11/2014 5:48 PM CDT Provider Unknown LAB - CHEMISTRY JUSTA SCHULZ Performing Organization Address [facility] de Phone Number [facility] ([facility]) [address] * VARICELLA ZOSTER ANTIBODY IGG (12/11/2014 2:45 PM CDT) Pathologist [facility] Varicella zoster Virus Antibody IgG 2414.0 IV 12/14/2014 11:25 AM CDT [facility] ([facility]) Comment: INTERPRETIVE INFORMATION: VZV Ab, IgG 134 IV or less ....... Negative - No significant level of detectable IgG varicella- zoster antibody. 135 -165 IV .......... Equivocal - Repeat testing in 10-14 days may be helpful. 166 IV or greater .... Positive - IgG antibody to varicella-zoster detected, which may indicate a current or past varicella-zoster infection. The best evidence for current infection is a significant change on two appropriately timed specimens, where both tests are done in the same laboratory at the same time. Blood specimen (specimen) BLOOD SPECIMEN / Unknown Venipuncture / Unknown 12/11/2014 2:45 PM CDT 12/11/2014 5:48 PM CDT Provider Unknown LAB - CHEMISTRY ORDE ZEUS [facility] ([facility]) [address] * RUBELLA ANTIBODY IGG (12/11/2014 2:45 PM CDT) Rubella Antibody IgG Positive - Immune 12/11/2014 6:46 PM CDT [facility] Blood BLOOD SPECIMEN / Unknown Venipuncture / Unknown 12/11/2014 2:45 PM CDT 12/11/2014 5:48 PM CDT Provider Unknown LAB - SEROLOGY ORDER ELO Performing Organization Address City/[facility]/ZIP Co de Phone Number [facility] [address] [place] [address] Care Teams Keno Clerk Relationship Specialty [place] [address] [address] PCP - General Internal Medicine 01/23/20 Tyree Cm, RN Information Writer 09/21/16 [place] [address] [facility] [address] [place] [address] Endocrinology 11/18/18
--- OUTSIDE RECORDS SUMMARY | 2024-08-25 13:46 | XMS_ITS | Encounter Summary ---
Author Organization [facility] Address [address] [facility] [place] [address] Care Team Providers Care Power Transformer Repair Supervisor Name Role Phone Bhavani Cm RN Unavailable [phone] Odalis Guerrero MD Primary Care Provider [phone] Shawnee Marshall DO Primary Care Provider Coni Hawk MD Unavailable [phone] Madelin Jaeger MD Primary Care Provider [phone] Shawnee Marshall DO Primary Care Provider [phone] Odalis Guerrero MD Unavailable [phone] Encounter Details Date Type Department Care Team (Late st Contact Info) Description 04/05/2018 Lab Requisition [facility] - Laboratory [address] [place] [address] Social History Tobacco Use Types Packs/Day Years Used Date Smoking Tobacco: Former Smokeless Tobacco: Never Alcohol Use Standard Drinks/Week [...] Description 04/16/2025 8:40 AM CDT Office Visit [facility] - Endocrinology [address] [facility], [address] [place] [address] [place] [address] [facility] [address] [place] [address] documented as of this encounter Procedures Procedure Name Priority Date/Time Associated Diagnosis Comments OCCULT BLOOD FECES IMMUNOASSAY Routine 04/05/2018 7:47 AM CDT documented in this encounter Results * OCCULT BLOOD FECES IMMUNOASSAY (04/05/2018 7:47 AM CDT) [facility] Occult Blood Immunoassay Negative Negative 04/05/2018 8:51 AM CDT [facility] Stool STOOL SPECIMEN / Unknown Collection / Unknown 04/05/2018 7:47 AM CDT 04/05/2018 7:47 AM CDT LAB - MICROBIOLOGY O RDERABLES [facility] [address] [place] [address] documented in this encounter Visit Diagnoses Not on filedocumented in this encounter Additional Health Concerns Infection Onset Date Last Indicated Resolved Time COVID-19 Under Investigation 02/01/2020 02/01/2020 02/01/2020 9:41 AM CDT COVID-19 Under Investigation 02/01/2020 02/01/2020 02/02/2020 6:20 AM CDT COVID-19 Under Investigation 04/23/2020 04/23/2020 04/25/2020 6:35 PM MANAGER LOGISTIC documented as of this encounter Care Teams Power Transformer Repair Supervisor Relationship Specialty Start Date End Date Odalis Guerrero MD PCP - General Family Medicine 03/19/18 08/13/18 Shawnee Marshall DO PCP - General Internal Medicine 08/14/18 06/18/19 Madelin Jaeger MD [address] [place] [address] PCP - General 06/19/19 01/22/20 Shawnee Marshall DO PCP - General Internal Medicine 01/23/20 Odalis Guerrero [place] [address] [facility] [address] [place] [address] PCP - Attributed-Exclusive Choice 06/20/18 11/17/18 Bhavani Cm, RN Lamp Cleaner Street Light 09/21/16 [place] [address] [address] Endocrinology 11/18/18 documented as of this encounter
--- OUTSIDE RECORDS SUMMARY | 2024-08-25 13:46 | XMS_ITS | Referral Summary ---
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): NONTOX NODUL GOITER NOS Social History Tobacco Use Types Packs/Day Years Used Date Smoking Tobacco: Never Assessed Alcohol Use Standard Drinks/Week Comments No 0 (1 standard drink = 0.6 oz pur e alcohol) Comments Unknown Sex and Gender Information Value Date Recorded Sex Assigned at Not on file 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
--- OUTSIDE RECORDS SUMMARY | 2024-08-25 13:46 | XMS_ITS | Encounter Summary ---
Author Organization [facility] Address [address] [place] [address] Care Team Providers Care Consultant Technology Name Role Phone Madelin Jaeger MD Primary Care Provider [phone] Bhavani Cm RN Unavailable [phone] Neo Garcia MD Primary Care Provider [phone] Neo Garcia MD Primary Care Provider Madelin Jaeger MD Primary Care Provider [phone] Odalis Guerrero MD Primary Care Provider [phone] Shawnee Marshall DO Primary Care Provider [phone] Coni Hawk MD Unavailable [phone] Madelin Jaeger MD Primary Care Provider [phone] Shawnee Marshall DO Primary Care Provider Odalis Guerrero MD Unavailable [phone] Encounter Details Date Type Department Care Team (Late st Contact Info) Description 12/11/2014 Lab Requisition [facility] [address] [place] [address] Unknown, Provider Social History Tobacco Use Types Packs/Day Years Used Date Smoking Tobacco: Never Assessed Sex and Gender Information Value Date Recorded Sex Assigned at Not on file Gender Identity Not on file Sexual Orientation Not on file documented as of this encounter Plan of Treatment Upcoming Encounters Date Type Department Care Team (Late st Contact Info) Description 04/16/2025 8:40 AM CDT Office Visit [facility] - Endocrinology [address] [facility], [address] [place] [id number] [place] [address] [facility] [address] [place] [address] documented as of this encounter Procedures Procedure Name Priority Date/Time Associated Diagnosis Comments RUBEOLA ANTIBODY IGG Routine 12/11/2014 2:45 PM CDT MUMPS ANTIBODY IGG Routine 12/11/2014 2: 45 PM CDT VARICELLA ZOSTER ANTIBODY IGG Routine 12/11/2014 2:45 PM CDT RUBELLA ANTIBODY IGG Routine 12/11/2014 2:45 PM CDT documented in this encounter Results * VARICELLA ZOSTER ANTIBODY IGG (12/11/2014 2:45 PM CDT) Varicella zoster Virus Antibody IgG 2414.0 IV 12/14/2014 11:25 AM CDT [facility] ([facility]) Comment: INTERPRETIVE INFORMATION: VZV Ab, IgG [...] Provider Unknown LAB - CHEMISTRY JUSTA SCHULZ [facility] ([facility]) [address] * RUBEOLA ANTIBODY IGG (12/11/2014 2:45 PM CDT) Measles (Rubeola) Antibody IgG >300.0 AU/mL 12/14/2014 11:20 AM CDT [facility] ([facility]) Comment: INTERPRETIVE INFORMATION: Measles (Rubeola) Antibody, [...] Provider Unknown LAB - CHEMISTRY JUSTA SCHULZ [facility] ([facility]) [address] * MUMPS ANTIBODY IGG (12/11/2014 2:45 PM CDT) Pathologist [facility] Mumps Virus Antibody IgG >300.0 AU/mL 12/14/2014 11:23 AM CDT [facility] ([facility]) Comment: INTERPRETIVE INFORMATION: Mumps Ab, IgG by [facility] 8.9 AU/mL or less .... Negative - [...] Provider Unknown LAB - CHEMISTRY ORDE ZEUS [facility] ([facility]) [address] * RUBELLA ANTIBODY IGG (12/11/2014 2:45 PM CDT) Rubella Antibody IgG Positive - Immune 12/11/2014 6:46 PM CDT [facility] Blood BLOOD SPECIMEN / Unknown Venipuncture / Unknown 12/11/2014 2:45 PM CDT 12/11/2014 5:48 PM CDT Provider Unknown LAB - SEROLOGY ORDER ELO Performing Organization Address City/[facility] Co de Phone Number [facility] [address] [place] [address] documented in this encounter Visit Diagnoses Not on filedocumented in this encounter Additional Health Concerns Infection Onset Date Last Indicated Resolved Time COVID-19 Under Investigation 02/01/2020 02/01/2020 02/01/2020 9:41 AM CDT COVID-19 Under Investigation 02/01/2020 02/01/2020 02/02/2020 6:20 AM CDT COVID-19 Under Investigation 04/23/2020 04/23/2020 04/25/2020 6:35 PM CLINICAL ACCOUNT MANAGER documented as of this encounter Care Teams Consultant Technology Relationship Specialty Start Date End Date Madelin Jaeger MD [address] [place] [address] PCP - General Family Medicine 04/29/15 10/01/17 Neo Garcia MD [address] [place] [address] PCP - General 10/02/17 10/02/17 Neo Garcia MD [address] [place] [address] PCP - General 10/03/17 10/28/17 Madelin Jaeger MD [address] [place], [place] [id number] PCP - General Family Medicine 10/29/17 03/18/18 Odalis Guerrero MD [address] [place] [phone] PCP - General Family Medicine 03/19/18 08/13/18 Shawnee Marshall DO [address] [place] [phone] PCP - General Internal Medicine 08/14/18 06/18/19 Madelin Jaeger MD [address] [place] [address] PCP - General 06/19/19 01/22/20 Shawnee Marshall DO [address] [place] [phone] PCP - General Internal Medicine 01/23/20 [place]ro [place] [address] [address] PCP - Attributed-Exclusive Choice 06/20/18 11/17/18 Bhavani Cm, RN Sludge Control Attendant 09/21/16 [place] [address] [address] Endocrinology 11/18/18 documented as of this encounter
--- OUTSIDE RECORDS SUMMARY | 2024-08-25 13:46 | XMS_ITS | Data Portability ---
Author Organization [facility] [place] Address [address] [place] [address] Care Team Providers Care Silver Cleaner Name Role Phone ARUNBJORN PHILLIPS Primary Care Provider [phone] Assessment No assessment recorded. Plan of Treatment Reminders Order Date Submit Date Provider Last Modified By Organization Details Last Modified Time Details Appointments None recorded. Lab None recorded. Referral None recorded. Procedures None recorded. Surgeries None recorded. Imaging US, pelvis [address], [facility] S[address]illory, [address], [place], [address], 20:32:23 US, transvagina l [address], [facility] [address], [place], [address], 4 20:32:23 Medication Orders None recorded. Patient TargetsNo targets recorded. Patient InstructionsNo instructions recorded. Reason for Referral None Reported. Results Created Date Observation Date Name Description Value Unit Range Abnormal Flag Note LastModifiedBy Organization Detail LastModifiedTime 01/28/2001/28/2024 US, pelvi s No observ ation record ed. [facility] [address], [place], [address], 01/28/2024 18:12:51 01/28/20 24 01/28/2024 US, trans vagin al No observ ation record ed. [facility] [address], [place], [address], 01/28/2024 18:13:04 01/28/20 24 01/28/2024 US, prisca s No observ ation record ed. ANTHONY Carley [address], [place], [address], 01/29/2024 10:40:13 Result Notes None recorded. Problems Name Problem SNOMED Code Status Onset Date Resolution Date Notes Provider Name and Address Organization Details Recorded Time Urinary tract infectiou s disease 55956450 Active 2010 Urinary Tract Infection; Recorded Elsewhere: No Locatio n: [facility] rce: EHR Chroni c: N Practice ID: 0001 Billa ble Time: 08:30:00 AM Not Available [facility] 0 22:01:04 Specializ ed medical examinati on Active 2013 Gynecologi chris Examinatio n;Recorded Elsewhere: No Locatio n: [facility] rce: EHR Chroni c: N Practice ID: 0001 Billa ble Time: 02:30:00 PM Not Available [facility] 0 22:01:04 Screening for malignant neoplasm of rectum Active 2012 Screening for malignant neoplasms of the rectum;Rec orded Elsewhere: No Locatio n: [facility] rce: EHR Chroni c: N Practice ID: 0001 Billa ble Time: 08:30:00 AM Not Available [facility] 0 22:01:04 Screening for malignant neoplasm of cervix Active 2012 Screening for malignant neoplasms of the cervix;Rec orded Elsewhere: No Locatio n: [facility] rce: EHR Chroni c: N Practice ID: 0001 Billa ble Time: 08:30:00 AM Not Available [facility] 0 22:01:04 Microscop ic hematuria 568472234 Active 2013 MICROSCOPI C HEMATURIA; Recorded Elsewhere: No Locatio n: [facility] rce: EHR Chroni c: N Practice ID: 0001 Billa ble Time: 02:30:00 PM Not Available [facility] 0 22:01:04 Dyspareun ia 39966993 Active 2011 Dyspareuni a;Recorded Elsewhere: No Locatio n: [facility]ce: EHR Chroni c: N Practice ID: 0001 Billa ble Time: 02:00:00 PM Not Available [facility] 0 22:01:04 Abdominal pain 52196148 Active 2011 Abdominal pain, other specified site;Recor ded Elsewhere: No Locatio n: [facility] rce: EHR Chroni c: N Practice ID: 0001 Billa ble Time: 02:00:00 PM Not Available [facility] 0 22:01:04 Blood in urine 69025754 Active 2013 HEMATURIA NOS;Record ed Elsewhere: No Locatio n: [facility] rce: EHR Chroni c: N Practice ID: 0001 Billa ble Time: 02:30:00 PM Not Available [facility] 0 22:01:[address] Concept Active 2015 Encntr for 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 exam (general) (routine) w/o abn findings;R ecorded Elsewhere: No Locatio n: [facility] rce: EHR Chroni c: N Practice ID: 0001 Billa ble Time: 04:30:00 PM Not Available [facility] 0 22:01:05 Adult health examinati on Active 2013 ROUTINE MEDICAL EXAM;Recor ded Elsewhere: No Locatio n: [facility] rce: EHR Chroni c: N Practice ID: 0001 Billa ble Time: 02:30:00 PM Not Available [facility] 0 22:01:05 Female genital organ symptoms 352015897 Active 2011 Unspecifie d symptom associated with female genital organs;Rec orded Elsewhere: No Locatio n: [facility] rce: EHR Chroni c: N Practice ID: 0001 Billa ble Time: 02:00:00 PM Not Available [facility] 0 22:01:05 Procedure on genitouri nary system Active 2010 Sterilizat ion;Practi ce ID: 0001 Not Available [facility] 0 22:01:05 Pre-surge ry evaluatio n Active 2010 Pre-operat yessy examinatio n, unspecifie d;Practice ID: 0001 Not Available [facility] 0 22:01:05 Problem Notes None recorded. Procedures Surgical History Date Name Laterality Status Provider Name and Address Organization Details Recorded Time 09/21/19 17 Partial Hysterectomy completed [facility] 01/09/2024 10:24:20 06/18/19 17 Date of Last Pap Smear completed [facility] 01/09/2024 10:30:35 08/16/18 93 Caesarean Section completed [facility] 01/09/2024 10:24:20 Tubal Ligation completed [facility] 01/09/2024 10:24:20 Dilation and Curettage completed [facility] 01/09/2024 10:24:20 Imaging Results Imaging Date Name Status LastModified by Organization Details LastModified Time 01/28/2024 US, pelvis completed mushtaq Hannah [address], [place], [address], 01/28/2024 18:12:51 01/28/2024 US, transvaginal completed mushtaq westbrook [address], [place], [address], 01/28/2024 18:13:04 01/28/2024 [facility], [facility] [address], [place], [address], 01/29/2024 10:40:13 Procedure Notes None recorded. Medical Equipment None Reported. Allergies Allergen ID Allergen Name Allergen Category Reaction Reaction Severity Criticality Documentation Date Start Date Code Code System Note Provider Name and Address Organization Details Recorded Time 34615 chlorhexi dine medicatio n rash moderate Not available 01/09/2024 2358 RxNorm Gertrude montilla [facility] 4 10:23:48 Medications Name Sig Start Date Stop Date Status Note LastModified by Organization Details LastModified Time hydrocodo ne 5 mg-acetam inophen 325 mg tablet TAKE 1 TO 2 TABLETS BY MOUTH EVERY 6 HOURS NEEDED FOR PAIN 01/08 completed Not Available Not Available Not Available levothyro xine 25 mcg tablet TAKE 1 TABLET BY MOUTH DAILY EXCEPT ON Sunday TAKE 2 TABLETS active Not Available Not Available No t Available ketorolac 10 mg tablet TAKE 1 TABLET BY MOUTH EVERY 6 HOURS NEEDED FOR PAIN 01/08 completed Not Available Not Available Not Available tamsulosi n 0.4 mg capsule TAKE 1 CAPSULE BY MOUTH DAILY 01/08 completed Not Available Not Available Not Available Cipro 500 mg tablet take 1 tablet (500MG) by oral route every 12 hours 08/07 completed Prescrib ed Elsewher e: No Locat ion: [facility] odify By: dasha alegria DateTime : 05/10/20 11 08:30:00 AM Not Available Not Available Not Available lisinopri l 10 mg tablet TAKE 1 TABLET BY MOUTH DAILY active Not Available Not Available No t Available Vitamins and Minerals tablet active Prescrib ed Elsewher e: Yes Loca tion: [facility] odify By: dasha alegria DateTime : 08/07/19 13 08:30:00 AM Not Available Not Available Not Available Vitals Date Recorded Body height Body mass index (BMI) Body weight Systolic blood pressure Diastolic blood pressure Provider Name and Address Organization Details Last Updated DateTime 01/09/2024 167.64 cm 23.5 kg/m2 14944.77 g 124 mm[Hg] 77 mm[Hg] Gertrude Smith [facility] 4 10:29:32 Social History Question Answer Notes LastModified by Organizat ion Details LastModified Time What Is Your Level Of Alcohol Consumption? None Information not available 01/09/2024 How Many Years Have You Consumed Alcohol? 15 Information not available 01/09/2024 Are You Blind Or Do You Have Difficulty Seeing? No Information not available 01/09/2024 What Is Your Level Of Caffeine Consumption? Moderate Information not available 01/09/2024 How Much Tobacco Do You Chew? None Information not available 01/09/2024 In The 14 Days Before Symptom Onset, Have You Had Close Contact With A Laboratory-confirme d COVID-19 While That Case Was Ill? No Information n ot available 01/09/2024 In The 14 Days Before Symptom Onset, Have You Had Close Contact With A Person Who Is Under Investigation For COVID-19 While That Person Was Ill? No Information not available 01/09/2024 Have You Been To An Area Known To Be High Risk For COVID-19? No Information not available 01/09/2024 Are You Deaf Or Do You Have Serious Difficulty Hearing? No Information not available 01/09/2024 What Type Of Diet Are You Following? REGULAR Information n ot available 01/09/2024 What Is The Highest Grade Or Level Of School You Have Completed Or The Highest Degree You Have Received? 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 No Information not available 01/09/2024 Do You Use Protection During Sex? Usually Information not available 01/09/2024 Do You Use Your Seat Belt Or Car Seat Routinely? Yes Information not available 01/09/2024 Do You Have Smoke And Carbon Monoxide Detectors In Your Home? Yes Information not available 01/09/2024 At What Age Did You Start Smoking Tobacco? 12 Information not available 01/09/2024 How Much Tobacco Do You Smoke? No Information not available 01/09/2024 Do You Feel Stressed (tense, Restless, Nervous, Or Anxious, Or Unable To Sleep At Night)? [id number] Information not available 01/09/2024 Do You Use Any Illicit Or Recreational Drugs? No Information not available 01/09/2024 Do You Use Sunscreen Routinely? Yes Information not available 01/09/2024 How Many Years Have You Smoked Tobacco? 14 Information not available 01/09/2024 Have You Used IV Drugs? No Information not available 01/09/2024 Sex: Unknown Functional Status Question Answer Note LastModified by Organizat ion Details LastModified Time Are you able to walk? YESWOREST Information not available 01/09/2024 What is your exercise level? Occasional Information not available 01/09/2024 Mental Status None recorded. Family History Relationship Description Onset Age of this Age Resolved Age Notes LastModified by Organization Details LastModified Time Mother Disorder of thyroid gland [email or web address] Not available 2023 10:23:53 Father Heart disease dswayne Not available 2023 10:23:54 Notes:Father: heart problems Medical History Condition Response Other N Blood Transfusion N Dermatologic Disorders N Gestational Diabetes N Anxiety Disorder N Autoimmune disease N Arthritis N Polyps N Infertility N Acid Reflux (GERD) N Cancer N Varicosities N Stroke N Neurologic/Epilepsy N Fibromyalgia N Headaches N Kidney Disease N Heart Problems N Kidney or Bladder Problems N Eating Disorder N Art (IVF or FET) N Hepatitis/Liver Disease N No Past Medical History N Urinary Tract Infection N Asthma N Trauma/Violence N Thrombophilias N Allergies (Food, seasonal, environmental ) N Breast Cancer N Drug/Latex Allergies/Reactions N Lung Disease N Defects or Inherited Disease N Breast Problem N Hematologic disorders N Anesthesia Complications N History of STI N Deep Vein Thrombosis N Polycystic ovary syndrome N History of abnormal pap N Endometriosis N High Cholesterol N Thyroid Problems N GI Problems N Anemia N Psychiatric Illness N Ovarian Cancer N Diabetes N Pulmonary (TB, Asthma) N Eczema N Abuse/Domestic Violence N Depression/ depression N Heart Disease N Pre-Eclampsia N Hypertension N Osteoporosis N Gynecological History Statement/Question Response Date of LMP 09/16/2016 On BCP's at Conception? N N STIs/STDs N HPV Vaccine N Current Control Method Hysterectom y Age at First Child 26 Sexually Active? N N/A Date of Last Pap Smear 06/18/2016 Sexual Problems? N Desired Control Method N/A LMP Approximate N Obstetrics History GPAL:G 2 P 2 0 0 2 Type Value Full Term 2 Living 2 Total 2 Past Encounters Encounter ID Performer Location Encounter Start Date Encounter Closed Date Diagnosis/Indication Diagnosis SNOMED-CT Code Diagnosis ICD10 Code Diagnosis Note [id number] ROSI HUDSON MD [place] [address] [address] 01/09/2024 09:56:31 01/09/2024 10:57:33 Pain in pelvis 46360739 R10.2 - patient reports ovulation- like pain since 05/2023- irregular q2-6 weeks- unilateral , however has had pain on both sides in separate episodes- s/p hysterecto my in 2017, ovaries still in place- no bleeding post hyst- labwork from endocrinol ogy reviewed today, FSH 96, postmenopa usal- will order pelvic US to evaluate [facility] [id number] [facility] [address] [address] 01/28/2024 13:29:45 01/28/2024 14:38:02 Pain in pelvis 97739105 R10.2 Health Concerns Section Related Observation LastModified by Organization Detai ls LastModified Time None Recorded Concern Status LastModified by Organization Details LastModified Time None Recorded Advance Directives Directive None Recorded Payers Encounter Date Sequence Insurance Name Policy Number Policy Mabry Covered Member ID Mabry Member ID Guarantor Name 01/09/2024 1 [employer] 111 Bhavani Casillas [id number] Bhavani Casillas 01/28/2024 1 [employer] 111 Bhavani Casillas [id number] Bhavani Casillas Notes Date Note Type Note Provider Name and Address Organization Details Recorded Time 01/09/2024 text/html Patient presents to establish care and discuss pelvic pain. She reports pain similar to her prior episodes of ovulation pain starting around Darlene 2022. Pain changes from one side to the other between episodes. She also reports increased acne. Pain is irregular, not monthly, sometimes 2 weeks apart, sometimes over a month apart. S/p hysterectomy 2017, ovaries in place. Still reports night sweats and rare hot flashes for at least the past 10 years. Previously had bloodwork done by her legal secretary receptionist, was told she was postmenopausal in 2021. ROSI HUDSON MD [address], [place], [address], [facility] 01/09/2024 10:54:51 OBGyn Episode Ob Episode Information Episode Created Date Number of Fetuses Patient Bloodtype Patient rh Status Prepregnancy Weight lbs Domestic Partner Domestic Partner Phone Father Name Certified Orthoptist Status 01/09/20 24 1 CLOSED Fetus Data First Name Last Name Admitted to NICU Weight (g) Sex Living Outcome Pediatric Complications Fetus ID Race Codes Race Delivery Type 3656.85 [id number] F Full Term [id number] V Back Lee Calculation Initial Lee Date Initial Exam Date Initial Exam Provider Initial Ultrasound Date Last Menstrual Period Date Ultra Sound Weeks Gestation 0 Eighteen To Twenty Week Lee Update Ultra Sound Date Fundal Height At Umbil Quickening Date Ultra Sound Latest Weeks Gestation Final Lee Confirmed By Final Lee Confirmed Date Final Lee Date Ultra Sound Latest Days Gestation 0 0 Menstrual History Last Menstrual Date Menses Monthly On Bcp Conception Prior Menses Frequency Hcg Plus Date Menarche Onset Age Delivery Information Delivery Date Delivery Type Labor Anesthesia Weeks Gestation Incision Type Labor Labor Length Hrs Delivered By Post Complications Tubal Sterilization Discharge Date Comments 6 Discharge Information Feeding Method Contraceptive Method Maternal HG B and HCT Levels Ob Episode Information Episode Created Date Number of Fetuses Patient Bloodtype Patient rh Status Prepregnancy Weight lbs Domestic Partner Domestic Partner Phone Father Name Certified Orthoptist Status 01/09/20 24 1 CLOSED Fetus Data First Name Last Name Admitted to NICU Weight (g) Sex Living Outcome Pediatric Complications Fetus ID Race Codes Race Delivery Type 3430.06 [id number] F Full Term [id number] Primary Lee Calculation Initial Lee Date Initial Exam Date Initial Exam Provider Initial Ultrasound Date Last Menstrual Period Date Ultra Sound Weeks Gestation 0 Eighteen To Twenty Week Lee Update Ultra Sound Date Fundal Height At Umbil Quickening Date Ultra Sound Latest Weeks Gestation Final Lee Confirmed By Final Lee Confirmed Date Final Lee Date Ultra Sound Latest Days Gestation 0 0 Menstrual History Last Menstrual Date Menses Monthly On Bcp Conception Prior Menses Frequency Hcg Plus Date Menarche Onset Age Delivery Information Delivery Date Delivery Type Labor Anesthesia Weeks Gestation Incision Type Labor Labor Length Hrs Delivered By Post Complications Tubal Sterilization Discharge Date Comments 3 Discharge Information Feeding Method Contraceptive Method Maternal HG B and HCT Levels
--- OUTSIDE RECORDS SUMMARY | 2024-08-25 13:46 | XMS_ITS | Continuity of Care Document ---
Author Organization [facility] Address [address] [place] [address] Phone Care Team Providers Care Envelope Sealer Operator Name Role Phone Timoteo, Edward Unavailable Unavailable Advance Directives Directive Yes / No Effective Date File Name No Information Encounters Encounter Description Practice Location Reason(s) For Visit Diagnoses Date Provider Providers Copied on Encounter [facility], [address], [place], [place], [address], [place] tel:[phone] [facility] No Information 4[address] Doisy Edward. [address], [place], [address], [place]. tel:[phone] Family History Family Member Type Diagnosis Age At Onset No Information Payers Payer name Insurance type Covered republican ID Authoriza tion(s) No Information Social History Type Description Quantity Date Captured Comments Sex Female Smoking Status No Information Chief Complaint And Reason For Visit No Information Reason For Referral Reason For Referral No Information History Of Present Illness Encounter Date Complaint History Of Prese nt Illness No Information Functional Status Date Functional Assessmen t No Information Instructions Date Instruction Additional Infor mation No Information Assessments Type Assessment Date No Information Patient Care Teams Name Effective Dates (start - stop) Status Members No Information
--- OUTSIDE RECORDS SUMMARY | 2024-08-25 13:46 | XMS_ITS | Continuity of Care Document ---
Author Organization [facility] Address [address] [place] [address] Phone Care Team Providers Care Manager Operating Name Role Phone Shawnee Marshall DO Unavailable Unavailable Allergies, Adverse Reactions, Alerts Substance Reaction Status Criticality nickel RashRash Active No Information chlorthalidone RashRash Active No Informatio n Medications Medication Instructions Dosage Effective Dates (start - stop) Status Comments Multiple Vitamins tablet - Activ e Macon-3 350 mg-235 mg-90 mg-597 mg capsule,delayed release - Active Vitamin B-12 50 mcg tablet - Active zinc 50 mg tablet - Active Dosoquin 5,500 unit-200 mcg tablet - Active Procedures Procedure Date Pt inelig neg scrn depres OFFICE [id number] BODY MASS INDEX DOCD SYST BP GE 130 - 139MM HG DIAST BP < 80 MM HG Advance Directives Directive Yes / No Effective Date File Name Life Support Not Answered N/A N/A Intubation Not Answered N/A N/A Antibiotics Not Answered N/A N/A IV Fluid Support Not Answered N/A N/A Tube Feed Not Answered N/A N/A Other Directive N/A N/A WARNING:The information contained in this section is historical and is provided for information only and does not constitute a legal document or any assurance that the information is still accurate. Please verify the information with the ulloa of the legal document before using it for clinical purposes. Encounters Encounter Description Practice Location Reason(s) For Visit Diagnoses Date Provider Providers Copied on Encounter [facility], [address], [place], [place], [address], [place] tel:[phone] [facility] No Information [address], [place], [place], [address] , [place]. tel: [phone] OFFICE [id number] ANDED [facility], [address], [place], [place], [address], tel:[phone] [facility] Complete Care Chronic Conditions (chief complaint) Nontoxic multinodular goiterAllergic rhinitis, unspecified [address], [place], [place], [address] , [place]. tel: [phone] Referring Provider: Shawnee Pearce, [address], [place], [address] . tel:[phone] [facility], [address], [place], [place], [address], tel:[phone] [facility] Complete Care Nontoxic multinodular goiterWell adult exam [address], [place], [place], [address] , [place]. tel: [phone] Referring Provider: Shawnee Pearce, [address], [place], [address] . tel:[phone] Family History Family Member Type Diagnosis Age At Onset Problem (finding) Family history of hyper tension Problem (finding) Family history of premature coronary heart disease Problem (finding) Family history of strok e Problem (finding) Family history of hyper cholesterolemia Payers Payer name Insurance type Covered green party ID Víctora marylandon(s) [facility] [id number] Social History Type Description Quantity Date Captured Comments Alcohol Use Details Unknown Caffeine Use Details Unknown Tobacco Use Status No Information Smoking Status No Information Sex Female Sexual Orientation Straight or heterosexual Gender Identity Female Chief Complaint And Reason For Visit No Information Reason For Referral Reason For Referral No Information History Of Present Illness Encounter Date Complaint History Of Prese nt Illness Chronic Conditions *See Chronic Conditions HPI Functional Status Date Functional Assessmen t No Information Instructions Date Instruction Additional Infor lee ann Exam normal. Monitor . Advised her to take benadryl before bed to help with symptoms. Monitor. Related to Allergic rhinitis, unspecified Normal TSH. Uptake scan shows multinodular goiter, no cold nodules. Will repeat U/S next year. Related to Nontoxic multinodular goiter Disease process Assessments Type Assessment Date No Information Patient Care Teams Name Effective Dates (start - stop) Status Members No Information
== END 2024-08-25 11:34 | disposition home or self-care (01) ==
PROVIDERS: PCP Internal Medicine; Visit Provider Urology
DX: N20.0 Calculus of kidney (principal)
CPT/HCPCS: 74018

== ENCOUNTER 2024-09-08 13:46 | Outpatient (CLI) | payer BC, SELFPAY ==
--- NOTE | ~2024-09-08 | DEXA_ITS ---
Bone Density Report Name: TYREE CALVO Age: 59 Sex: Female Ethnicity: White Date of : 1965 Indication: postmenopausal; screening for osteoporosis; parental hip fracture; hysterectomy; Referring Provider: UNKNOWN, UNKNOWN Study: Bone densitometry was performed. Exam Date: September 08, 2024 Accession number: [id number] Bone Density: Region BMD T-score Z-score Classification AP Spine(L1-L4) 1.101 0.5 2.0 Normal Femoral Neck (Left) 0.605 -2.2 -0.9 Osteopenia Total Hip (Left) 0.865 -0.6 0.4 Normal Femoral Neck (Right) 0.587 -2.4 -1.0 Osteopenia Total Hip (Right) 0.798 -1.2 -0.2 Osteopenia Total Hip Mean 0.832 -0.9 0.1 Normal World Health Organization criteria for BMD impression classify patients as: Normal (T-score at or above -1.0), Osteopenia (T-score between -1.0 and -2.5), or Osteoporosis (T-score at or below -2.5). 10-year Fracture Risk(1): Major Osteoporotic Fracture 20% Hip Fracture 1.9% Reported Risk Factors: [place] (), Neck BMD=0.587, BMI=23.2, parental fracture (1) FRAX(R) Version 3.08. Fracture probability calculated for an untreated patient. Fracture probability may be lower if the patient has received treatment. Clinical Information Provided by Patient: Parent has had a hip fracture Has used the following medications: Vitamin D Has the following medical conditions: Hysterectomy Patient maximum height was 66 Menopause Age: 56 No regular weight bearing exercise Does not regularly consume dairy products Drinks caffeinated beverages Onset of menses at age 11 Number of children 2 Missed period for more than 6 months in a row Impression: The patient has low bone mass, based on the Right Femoral Neck T-score. The patient has an estimated ten-year risk of hip fracture of 1.9% and an estimated ten-year risk of major fracture of 20%, based on the WHO FRAX algorithm. The patient has risk factors, including: parental hip fracture. Discussion: BONE DENSITY IS LOW AT ONE OR MORE SKELETAL SITES. THE PATIENT'S BMD AND CLINICAL RISK FACTORS CONTRIBUTE TO THIS PATIENT'S INCREASED RISK OF FRACTURE. This patient's lowest T-score is low at one or more skeletal sites. It meets the World Health Organization's (WHO) criteria for ?low bone mass? (T-score between -1.0 and -2.5). The patient's 10-year risk of a major osteoporotic fracture as calculated by FRAX exceeds the threshold where pharmacological therapy is recommended by the National Osteoporosis Foundation (NOF). However, all treatment decisions require clinical judgment and consideration of individual patient factors, including patient preferences, comorbidities, previous drug use, risk factors not captured in the FRAX model (e.g., frailty, falls, vitamin D deficiency, increased bone turnover, interval significant decline in bone density) and possible under or overestimation of fracture risk by FRAX. The patient should follow a healthful lifestyle (good nutrition with adequate calcium and vitamin D, and appropriate weight-bearing exercise). Follow-Up: Consider a repeat BMD and Vertebral Fracture Assessment (VFA) exam in 2 years or sooner if medically necessary, to reassess this patient's status. Reported by: WALDEMAR on 09/08/2024 2:17:00 PM. Reviewed, dictated and finalized at location A. [facility]
--- OUTSIDE RECORDS SUMMARY | 2024-09-08 15:45 | XMS_ITS | Encounter Summary ---
Author Organization [facility] Address [address] [facility] [place] [address] Care Team Providers Care Shift Manager Name Role Phone Madelin Jaeger MD Primary Care Provider [phone] Bhavani Cm RN Unavailable [phone] Neo Garcia MD Primary Care Provider [phone] Neo Garcia MD Primary Care Provider [phone] Madelin Jaeger MD Primary Care Provider [phone] Odalis Guerrero MD Primary Care Provider [phone] Shawnee Marshall DO Primary Care Provider Coni Hawk MD Unavailable [phone] Madelin Jaeger MD Primary Care Provider [phone] Shawnee Marshall DO Primary Care Provider Odalis Guerrero MD Unavailable [phone] Encounter Details Date Type Department Care Team (Late st Contact Info) Description 04/12/2017 Lab Requisition [facility] - Laboratory [address] [place] [address] Unknown, Provider Social History Tobacco Use [...] as of this encounter Plan of Treatment Not on file documented as of this encounter Visit Diagnoses Not on filedocumented in this encounter Additional Health Concerns Infection Onset Date Last Indicated Resolved Time COVID-19 Under Investigation 02/01/2020 02/01/2020 02/01/2020 9:41 AM CDT COVID-19 Under Investigation 02/01/2020 02/01/2020 02/02/2020 6:20 AM CDT COVID-19 Under Investigation 04/23/2020 04/23/2020 04/25/2020 6:35 PM SHOPPER documented as of this encounter Care Teams Shift Manager Relationship Specialty Start Date End Date Madelin Jaeger MD [address] [place] [address] PCP - General Family Medicine 04/29/15 10/01/17 Neo Garcia MD [address] [place] [address] PCP - General 10/02/17 10/02/17 Neo Garcia MD [address] [place] [address] PCP - General 10/03/17 10/28/17 Madelin Jaeger MD [address] [place] [address] PCP - General Family Medicine 10/29/17 03/18/18 Odalis Guerrero MD [address] [place] [address] PCP - General Family Medicine 03/19/18 08/13/18 Shawnee Marshall DO [address] [place] [address] PCP - General Internal Medicine 08/14/18 06/18/19 Mdaelin Jaeger MD [address] [place] [address] PCP - General 06/19/19 01/22/20 Shawnee Marshall DO [address] [place] [address] PCP - General Internal Medicine 01/23/20 Odalis Geurrero MD [address] [address] PCP - Attributed-Exclusive Choice 06/20/18 11/17/18 Bhavani Cm, RN Electrical Mechanic 09/21/16 [place] [address] [address] Endocrinology 11/18/18 documented as of this encounter
--- OUTSIDE RECORDS SUMMARY | 2024-09-08 15:45 | XMS_ITS | Encounter Summary ---
Author Organization [facility] Address [address] 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
--- OUTSIDE RECORDS SUMMARY | 2024-09-08 15:46 | XMS_ITS | Clinical Summary ---
Author Organization [facility] Address [address] [facility] [place] [address] Care Team Providers Care Mechanical Ordnance Assembler Name Role Phone Tyree Cm RN Unavailable [phone] Coni Hawk MD Unavailable [phone] Shawnee Marshall DO Primary Care Provider [phone] Source Comments [facility],non-owned Affiliates and Associated Physician Practices is amultiple site organization consisting of ambulatory clinics and hospital sitesin [place], [place] and [place]. This disclosure is being madepursuant to the Care Everywhere program and may not contain all information available regarding this patient. Last updated 18.[facility] Allergies Active Allergy Reactions Criticality Noted Date [...] 1 Tab by mouth once daily Active Nineveh-3 Fatty Acids (ULTRA OMEGA 3 PO) Take [...] Department Care Team Description 06/22/2024 Orders Only [facility] - Endocrinology [address] [facility], [address] [address] Coni Hawk MD Nodular goiter, [...] 04/16/2024 8:41 AM CDT Plan of Treatment Health Maintenance Due Date [...] complete this topic MENINGOCOCCAL (Group B) VACCINE SHARED DECISION-MAKING Aged Out No longer eligible based on patient's age to complete this topic MENINGOCOCCAL GROUPS A/C/Y/W VACCINE Aged Out No longer eligible based [...] LDL-C. Jorge BURDICK et al. RUSTY. 2013;310(19): 6875-1672 (http://education.[employer]/faq/XCT986) CHOL/HDLC RATIO 4.5 <5.0 (calc) [facility] Non HDL Cholesterol 175(H) <130 mg/dL (calc) [facility] Comment: For patients with diabetes plus 1 major ASCVD risk factor, treating to a non-HDL-C goal of <100 mg/dL (LDL-C of <70 mg/dL) is considered a therapeutic option. Test Performed at: [facility] [address] CHUCKY AQUINO MD Blood BLOOD SPECIMEN / Unknown 04/20/2023 8:29 AM CDT 04/20/2023 8:34 AM CDT Coni Hawk MD LAB - CHEMISTRY ORDERABLES Performing Organization Address City/[facility]/ZIP Co de Phone Number [address] [address] * OCCULT BLOOD FECES IMMUNOASSAY (04/05/2018 7:47 AM CDT) Occult Blood Immunoassay Negative Negative 04/05/2018 8:51 AM CDT [facility] Stool STOOL SPECIMEN / Unknown Collection / Unknown 04/05/2018 7:47 AM CDT 04/05/2018 7:47 AM CDT LAB - MICROBIOLOGY O RDERABLES Performing Organization Address [facility] Co de Phone Number [facility] [address] [place] [address] * HEPATITIS C ANTIBODY (03/28/2018 8:36 AM CDT) Hepatitis C Antibody <0.1 0.0 - 0.9 s/co ratio [facility] ACCOUNT BILL Comment: Negative: < 0.8 Indeterminate: 0.8 - 0.9 Positive: > 0.9 . The CDC recommends that a positive HCV antibody result be followed up with a HCV Nucleic Acid Amplification test (482716). FASTING Blood BLOOD SPECIMEN / Unknown 03/28/2018 8:36 AM CDT 03/28/2018 Narrative Resulting Agency Comment [facility] [address] [id number] Odalis Guerrero MD LAB - CHEMISTRY OR DERABLES [facility] ACCOUNT BILL [place] [place] [address] * MAMMOGRAM DIGITAL SCREENING BILATERAL G0202 (10/23/2017 [...] been scanned as a document/letter in the [employer] EMR (media tab). If there are questions regarding this information or our Cancer Genetics Risk Assessment Program, please do not hesitate to contact [phone]. Narrative 10/23/2017 10:53 AM CDT Bilateral mammography. Most recent comparison: 2015 History: Screening mammogram. Technique: Bilateral breasts. Mammography views included: CC and MLO. Images interpreted with CAD. Following current [facility] protocol, 3D mammographic tomosynthesis images were obtained and reviewed on a dedicated viewing station. FINDINGS: Breast composition: Heterogeneously dense which may obscure small masses. No suspicious calcifications, masses, or areas of architectural distortion. Neo Garcia MD MAMMO ORDERABLES from Last 3 Months or Most Recently Relevant to Health Maintenance Advance Directives Documents on File Type Date Recorded Patient Freight Unloader Expl anation Adv Directive/Living Will/POA 09/21/2016 7:56 PM * Full Code (Latest Code Status on File) Date Activated Date Inactivated Comments 09/20/2016 8:58 AM 09/21/2016 3:41 PM Care Teams Mechanical Ordnance Assembler Relationship Specialty [place] [address] [facility] [address] [place] [address] PCP - General Internal Medicine 01/23/20 Tyree Cm, RN Rag Baler 09/21/16 [place] [address] [facility] [address] [place] [address] Endocrinology 11/18/18
--- OUTSIDE RECORDS SUMMARY | 2024-09-08 15:46 | XMS_ITS | Referral Summary ---
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
--- OUTSIDE RECORDS SUMMARY | 2024-09-08 15:46 | XMS_ITS | Encounter Summary ---
Author Organization [facility] Address [address] [facility] [place] [address] Care Team Providers Care Technical Sales Engineer Name Role Phone Bhavani Cm RN Unavailable [phone] Odalis Guerrero MD Primary Care Provider [phone] Shawnee Marshall DO Primary Care Provider Coni Hawk MD Unavailable [phone] Madelin Jaeger MD Primary Care Provider [phone] Shawnee Marshall DO Primary Care Provider [phone] Odalis Guerrero MD Unavailable [phone] Encounter Details Date Type Department Care Team (Late st Contact Info) Description 04/05/2018 Lab Requisition [facility] - Laboratory [address] [place] [address] Social History Tobacco Use Types Packs/Day [...] on file documented as of this encounter Procedures Procedure Name Priority Date/Time Associated Diagnosis Comments OCCULT BLOOD FECES IMMUNOASSAY Routine 04/05/2018 7:47 AM CDT documented in this encounter Results * OCCULT BLOOD FECES IMMUNOASSAY (04/05/2018 7:47 AM CDT) [facility] Occult Blood Immunoassay Negative Negative 04/05/2018 8:51 AM CDT [facility] Stool STOOL SPECIMEN / Unknown Collection / Unknown 04/05/2018 7:47 AM CDT 04/05/2018 7:47 AM CDT LAB - MICROBIOLOGY O RDERABLES Performing Organization Address City/State/[facility] Co de Phone Number [facility] [address] [place] [address] documented in this encounter Visit Diagnoses Not on filedocumented in this encounter Additional Health Concerns Infection Onset Date Last Indicated Resolved Time COVID-19 Under Investigation 02/01/2020 02/01/2020 02/01/2020 9:41 AM CDT COVID-19 Under Investigation 02/01/2020 02/01/2020 02/02/2020 6:20 AM CDT COVID-19 Under Investigation 04/23/2020 04/23/2020 04/25/2020 6: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 documented as of this encounter Care Teams Technical Sales Engineer Relationship Specialty Start Date End Date Odalis Guerrero MD PCP - General Family Medicine 03/19/18 08/13/18 Shawnee Marshall DO PCP - General Internal Medicine 08/14/18 06/18/19 Madelin Jaeger MD [address] [place] [address] PCP - General 06/19/19 01/22/20 Shawnee Marshall DO PCP - General Internal Medicine 01/23/20 Odalis Guerrero MD [address] [facility] [address] [place] [address] PCP - Attributed-Exclusive Choice 06/20/18 11/17/18 Bhavani Cm, RN Loom Control Chain Builder 09/21/16 [place] [address] [address] Endocrinology 11/18/18 documented as of this encounter
--- OUTSIDE RECORDS SUMMARY | 2024-09-08 15:46 | XMS_ITS | Data Portability ---
Author Organization [facility] [place] Address [address] [place] [address] Care Team Providers Care Bootmaker Name Role Phone ARUNBJORN PHILLIPS Primary Care Provider Assessment No assessment recorded. Plan of Treatment Reminders Order Date Submit Date Provider Last Modified By Organization Details Last Modified Time Details Appointments None recorded. Lab None recorded. Referral None recorded. Procedures None recorded. Surgeries None recorded. Imaging US, pelvis [email or web address], [facility] [address], [address], [place], [address], 20:32:23 US, transvagina l [address], [facility] [address], [place], [address], 4 20:32:23 Medication Orders None recorded. Patient TargetsNo targets recorded. Patient InstructionsNo instructions recorded. Reason for Referral None Reported. Results Created Date Observation Date Name Description Value Unit Range Abnormal Flag Note LastModifiedBy Organization Detail LastModifiedTime 01/28/2001/28/2024 US, pelvi s No observ ation record ed. [facility] [address], [place], [address], 01/28/2024 18:12:51 01/28/20 24 01/28/2024 US, trans vagin al No observ ation record ed. [facility] [address], [place], [address], 01/28/2024 18:13:04 01/28/20 24 01/28/2024 US, prisca s No observ ation record ed. ANTHONY Carley [address], [place], [address], 01/29/2024 10:40:13 Result Notes None recorded. Problems Name Problem SNOMED Code Status Onset Date Resolution Date Notes Provider Name and Address Organization Details Recorded Time Urinary tract infectiou s disease 25447721 Active 2010 Urinary Tract Infection; Recorded Elsewhere: No Locatio n: [facility] rce: EHR Chroni c: N Practice ID: 0001 Billa ble Time: 08:30:00 AM Not Available [facility] 0 22:01:04 Specializ ed medical examinati on Active 2013 Gynecologi chris Examinatio n;Recorded Elsewhere: No Locatio n: [facility] rce: EHR Chroni c: N Practice ID: 0001 Billa ble Time: 02:30:00 PM Not Available [facility] 0 22:01:04 Screening for malignant neoplasm of rectum Active 2012 Screening for malignant neoplasms of the rectum;Rec orded Elsewhere: No Locatio n: [facility] rce: EHR Chroni c: N Practice ID: 0001 Billa ble Time: 08:30:00 AM Not Available [facility] 0 22:01:04 Screening for malignant neoplasm of cervix Active 2012 Screening for malignant neoplasms of the cervix;Rec orded Elsewhere: No Locatio n: [facility] rce: EHR Chroni c: N Practice ID: 0001 Billa ble Time: 08:30:00 AM Not Available [facility] 0 22:01:04 Microscop ic hematuria 996405092 Active 2013 MICROSCOPI C HEMATURIA; Recorded Elsewhere: No Locatio n: [facility] rce: EHR Chroni c: N Practice ID: 0001 Billa ble Time: 02:30:00 PM Not Available [facility] 0 22:01:04 Dyspareun ia 21053827 Active 2011 Dyspareuni a;Recorded Elsewhere: No Locatio n: [facility] rce: EHR Chroni c: N Practice ID: 0001 Billa ble Time: 02:00:00 PM Not Available [facility] 0 22:01:04 Abdominal pain 60594655 Active 2011 Abdominal pain, other specified site;Recor ded Elsewhere: No Locatio n: [facility] rce: EHR Chroni c: N Practice ID: 0001 Billa ble Time: 02:00:00 PM Not Available [facility] 0 22:01:04 Blood in urine 66357011 Active 2013 HEMATURIA NOS;Record ed Elsewhere: No Locatio n: [facility] rce: EHR Chroni c: N Practice ID: 0001 Billa ble Time: 02:30:00 PM Not Available [facility] 0 22:01:[address] Concept Active 2015 Encntr for feeder/folder exam (general) (routine) w/o abn findings;R ecorded Elsewhere: No Locatio n: [facility] rce: EHR Chroni c: N Practice ID: 0001 Billa ble Time: 04:30:00 PM Not Available [facility] 0 22:01:05 Adult health examinati on Active 2013 ROUTINE MEDICAL EXAM;Recor ded Elsewhere: No Locatio n: [facility] rce: EHR Chroni c: N Practice ID: 0001 Billa ble Time: 02:30:00 PM Not Available [facility] 0 22:01:05 Female genital organ symptoms 932894015 Active 2011 Unspecifie d symptom associated with female genital organs;Rec orded Elsewhere: No Locatio n: [facility] rce: EHR Chroni c: N Practice ID: 0001 Billa ble Time: 02:00:00 PM Not Available [facility] 0 22:01:05 Procedure on genitouri nary system Active 2010 Sterilizat ion;Practi ce ID: 0001 Not Available [facility] 0 22:01:05 Pre-surge ry evaluatio n Active 2010 Pre-operat yessy examinatio n, unspecifie d;Practice ID: 0001 Not Available [facility] 0 22:01:05 Problem Notes None recorded. Procedures Surgical History Date Name Laterality Status Provider Name and Address Organization Details Recorded Time 09/21/19 17 Partial Hysterectomy completed [facility] 01/09/2024 10:24:20 06/18/19 17 Date of Last Pap Smear completed [facility] 01/09/2024 10:30:35 08/16/18 93 Caesarean Section completed [facility] 01/09/2024 10:24:20 Tubal Ligation completed [facility] 01/09/2024 10:24:20 Dilation and Curettage completed [facility] 01/09/2024 10:24:20 Imaging Results Imaging Date Name Status LastModified by Organization Details LastModified Time 01/28/2024 US, pelvis completed mushtaq Hannah [address], [place], [address], 01/28/2024 18:12:51 01/28/2024 US, transvaginal completed mushtaq westbrook [address], [place], [address], 01/28/2024 18:13:04 01/28/2024 [facility] [address], [place], [address], 01/29/2024 10:40:13 Procedure Notes None recorded. Medical Equipment None Reported. Allergies Allergen ID Allergen Name Allergen Category Reaction Reaction Severity Criticality Documentation Date Start Date Code Code System Note Provider Name and Address Organization Details Recorded Time 06849 chlorhexi dine medicatio n rash moderate Not available 01/09/2024 2358 RxNorm Gertrude montilla [facility] 4 10:23:48 Medications Name Sig Start [...] Prescrib ed Elsewher e: No Locat ion: [facility] odify By: dasah alegria DateTime : 05/10/20 11 08:30:00 AM Not Available Not Available Not Available lisinopri l 10 mg tablet TAKE 1 TABLET BY MOUTH DAILY active Not Available Not Available No t Available Vitamins and Minerals tablet active Prescrib ed Elsewher e: Yes Loca tion: [facility]ify By: dasha alegria DateTime : 08/07/19 13 08:30:00 AM Not Available Not Available Not Available Vitals Date Recorded Body height Body mass index (BMI) Body weight Systolic blood pressure Diastolic blood pressure Provider Name and Address Organization Details Last Updated DateTime 01/09/2024 167.64 cm 23.5 kg/m2 41800.77 g 124 mm[Hg] 77 mm[Hg] Gertrude Smith [facility] 4 10:29:32 Social History Question Answer [...] Or The Highest Degree You Have Received? [id number] Information not available 01/09/2024 What Is Your [...] Anxious, Or Unable To Sleep At Night)? [id number] Information not available 01/09/2024 Do You Use [...] Notes:Father: heart problems Medical History Condition Response Allergies (Food, seasonal, environmental ) N Other N Breast Cancer N Drug/Latex Allergies/Reactions N Blood Transfusion N Dermatologic Disorders N Lung Disease N Defects or Inherited Disease N Breast Problem N Gestational Diabetes N Hematologic disorders N Anesthesia Complications N History of STI N Deep Vein Thrombosis N Polycystic ovary syndrome N Anxiety Disorder N Autoimmune disease N Arthritis N Infertility N Polyps N Acid Reflux (GERD) N History of abnormal pap N Cancer N Stroke N Varicosities N Neurologic/Epilepsy N Endometriosis N High Cholesterol N Headaches N Fibromyalgia N Kidney Disease N Heart Problems N Kidney or Bladder Problems N Thyroid Problems N GI Problems N Eating Disorder N Anemia N Art (IVF or FET) N Psychiatric Illness N Ovarian Cancer N Diabetes N Pulmonary (TB, Asthma) N Hepatitis/Liver Disease N No Past Medical History N Eczema N Urinary Tract Infection N Abuse/Domestic Violence N Asthma N Trauma/Violence N Depression/ depression N Heart Disease N Pre-Eclampsia N Hypertension N Osteoporosis N Thrombophilias N Gynecological History Statement/Question Response Date of [...] SNOMED-CT Code Diagnosis ICD10 Code Diagnosis Note [id number] ROSI HUDSON MD [facility] [address] [address] 01/09/2024 09:56:31 01/09/2024 10:57:33 Pain in pelvis 30714447 R10.2 - patient reports ovulation- like pain since 05/2023- irregular q2-6 weeks- unilateral , however has had pain on both sides in separate episodes- s/p hysterecto my in 2017, ovaries still in place- no bleeding post hyst- labwork from endocrinol ogy reviewed today, FSH 96, postmenopa usal- will order pelvic US to evaluate ovaries [id number] [facility] [address] [address] 01/28/2024 13:29:45 01/28/2024 14:38:02 Pain in pelvis 89891888 R10.2 Health Concerns Section Related Observation LastModified by Organization Detai ls LastModified Time None Recorded Concern Status LastModified by Organization Details LastModified Time None Recorded Advance Directives Directive None Recorded Payers Encounter Date Sequence Insurance Name Policy Number Policy Mabry Covered Member ID Mabry Member ID Guarantor Name 01/09/2024 1 [employer] 111 Bhavani Casillas [id number] Bhavani Casillas 01/28/2024 1 [employer] 111 Bhavani Casillas [id number] Bhavani Casillas Notes Date Note Type Note [...] years. Previously had bloodwork done by her event operations manager, was told she was postmenopausal in 2021. ROSI HUDSON MD [address], [place], [address], [facility] 01/09/2024 10:54:51 OBGyn Episode Ob Episode Information Episode Created Date Number of Fetuses Patient Bloodtype Patient rh Status Prepregnancy Weight lbs Domestic Partner Domestic Partner Phone Father Name Director Of Instructional Technology Status 01/09/20 24 1 CLOSED Fetus Data First Name Last Name Admitted to NICU Weight (g) Sex Living Outcome Pediatric Complications Fetus ID Race Codes Race Delivery Type 3656.85 8704 F Full Term [address]21 V Back Lee Calculation Initial Lee Date [...] Domestic Partner Domestic Partner Phone Father Name Director Of Instructional Technology Status 01/09/20 24 1 CLOSED Fetus Data First Name Last Name Admitted to NICU Weight (g) Sex Living Outcome Pediatric Complications Fetus ID Race Codes Race Delivery Type 3430.06 2704 F Full Term [id number] Primary Lee Calculation Initial Lee Date Initial [...]
--- OUTSIDE RECORDS SUMMARY | 2024-09-08 15:46 | XMS_ITS | Continuity of Care Document ---
Author Organization [facility] Address [address] [place] [address] Phone Care Team Providers Care Operations Manager/Coordinator Name Role Phone Shawnee Marshall DO Unavailable Unavailable Allergies, Adverse Reactions, Alerts Substance Reaction Status Criticality nickel RashRash Active No Information chlorthalidone RashRash Active No Informatio n Medications Medication Instructions Dosage Effective Dates (start - stop) Status Comments Multiple Vitamins tablet - Activ e [place]-3 350 mg-235 mg-90 mg-597 mg capsule,delayed release - Active Vitamin B-12 50 mcg tablet - Active zinc 50 mg tablet - Active Dosoquin 5,500 unit-200 mcg tablet - Active Procedures Procedure Date Pt inelig neg scrn depres OFFICE [id number] BODY MASS INDEX DOCD SYST BP GE [...] Diagnoses Date Provider Providers Copied on Encounter [facility], [address], [place], [place], [address], [place] tel:[phone] [facility] Internal Medicine No Information [address], [address], [place], [place], [address] , [place]. tel: [phone] OFFICE [id number] ANDED [facility], [address], [place], [place], [address], tel:[phone] [facility] Chronic Conditions (chief complaint) Nontoxic multinodular goiterAllergic rhinitis, unspecified 0 [address], [address], [place], [place], [address] , [place]. tel: [phone] Referring Provider: Shawnee Pearce, [address], [place], [address] . tel:[phone] [facility], [address], [place], [place], [address], tel:[phone] [facility] Nontoxic multinodular goiterWell adult exam [address], [address], [place], [place], [address] , [place]. tel: [phone] Referring Provider: Shawnee Pearce, [address], [place], [address] . tel:[phone] Family History Family Member Type Diagnosis Age At Onset Problem (finding) Family history of hyper tension Problem (finding) Family history of premature coronary heart disease Problem (finding) Family history of strok e Problem (finding) Family history of hyper cholesterolemia Payers Payer name Insurance type Covered libertarian ID Víctora marylandon(s) [facility] [id number] Social History Type Description Quantity Date Captured [...]
--- OUTSIDE RECORDS SUMMARY | 2024-09-08 15:46 | XMS_ITS | Clinical Summary ---
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
--- OUTSIDE RECORDS SUMMARY | 2024-09-08 15:46 | XMS_ITS | Continuity of Care Document ---
Author Organization [facility] Address [address] [place] [address] Phone Care Team Providers Care Cd Manufacturing Supervisor Name Role Phone Timoteo, Edward Unavailable Unavailable Advance Directives Directive Yes / No Effective Date File Name No Information Encounters Encounter Description Practice Location Reason(s) For Visit Diagnoses Date Provider Providers Copied on Encounter [facility], [address], [place], [place], [address], [place] tel:[phone] [facility] No Information 4[address] Doisy Edward. [address] , [address], [place], [address], [place]. tel:[phone] Family History Family Member Type Diagnosis Age At Onset No Information Payers Payer name Insurance type Covered alliance party ID Authoriza tion(s) No Information Social History [...]
--- OUTSIDE RECORDS SUMMARY | 2024-09-08 15:46 | XMS_ITS | Encounter Summary ---
Author Organization [facility] Address [address] [facility] [place] [address] Care Team Providers Care Director Of Head Start Name Role Phone Madelin Jaeger MD Primary Care Provider [phone] Bhavani Cm RN Unavailable [phone] Neo Garcia MD Primary Care Provider [phone] Neo Garcia MD Primary Care Provider [phone] Madelin Jaeger MD Primary Care Provider [phone] Odalis Guerrero MD Primary Care Provider [phone] Shawnee Marshall DO Primary Care Provider [phone] Coni Hawk MD Unavailable [phone] Madelin Jaeger MD Primary Care Provider [phone] Shawnee Marshall DO Primary Care Provider [phone] Odalis Guerrero MD Unavailable Encounter Details Date Type Department Care Team (Late st Contact Info) Description 12/11/2014 Lab Requisition [facility] [address] [place] [address] Unknown, Provider Social History Tobacco Use Types [...] IgG 2414.0 IV 12/14/2014 11:25 AM CDT [employer] ([facility]) Comment: INTERPRETIVE INFORMATION: VZV Ab, IgG [...] Provider Unknown LAB - CHEMISTRY JUSTA SCHULZ [employer] [facility]) [address] * RUBEOLA ANTIBODY IGG (12/11/2014 2:45 PM CDT) Measles (Rubeola) Antibody IgG >300.0 AU/mL 12/14/2014 11:20 AM CDT [employer] ([facility]) Comment: INTERPRETIVE INFORMATION: Measles (Rubeola) Antibody, [...] PM CDT Provider Unknown LAB - CHEMISTRY [employer] Performing Organization Address City/[facility] Co de Phone Number [employer] [facility]) [address] [place] [address] * MUMPS ANTIBODY IGG (12/11/2014 2:45 PM CDT) [facility] Signature Mumps Virus Antibody IgG >300.0 AU/mL 12/14/2014 11:23 AM CDT [employer] ([facility]) Comment: INTERPRETIVE INFORMATION: Mumps Ab, IgG [...] PM CDT Provider Unknown LAB - CHEMISTRY [employer] ([facility]) [address] [place] [address], [facility] * RUBELLA ANTIBODY IGG (12/11/2014 2:45 PM CDT) Rubella Antibody IgG Positive - Immune 12/11/2014 6:46 PM CDT [facility] Blood BLOOD SPECIMEN / Unknown Venipuncture / Unknown 12/11/2014 2:45 PM CDT 12/11/2014 5:48 PM CDT Provider Unknown LAB - SEROLOGY ORDER ELO [facility] [address] [place] [address] documented in this encounter Visit Diagnoses Not on filedocumented in this encounter Additional Health Concerns Infection Onset Date Last Indicated Resolved Time COVID-19 Under Investigation 02/01/2020 02/01/2020 02/01/2020 9:41 AM CDT COVID-19 Under Investigation 02/01/2020 02/01/2020 02/02/2020 6:20 AM CDT COVID-19 Under Investigation 04/23/2020 04/23/2020 04/25/2020 6:[address] documented as of this encounter Care Teams Director Of Head Start Relationship Specialty Start Date End Date Madelin Jaeger MD [address] [place] [address] PCP - General Family Medicine 04/29/15 10/01/17 Neo Garcia MD [address] [place] [address] PCP - General 10/02/17 10/02/17 Neo Garcia MD [address] [place] [address] PCP - General 10/03/17 10/28/17 Madelin Jaeger MD [address] [place] [address] PCP - General Family Medicine 10/29/17 03/18/18 Odalis Guerrero MD [address] [place] [address] PCP - General Family Medicine 03/19/18 08/13/18 Shawnee Marshall DO [address] [place] [phone] PCP - General Internal Medicine 08/14/18 06/18/19 Madelin Jaeger MD [address] [place] [address] PCP - General 06/19/19 01/22/20 Shawnee Marshall DO [address] [place] [address] PCP - General Internal Medicine 01/23/20 Odalis Guerrero MD [address] [facility] [address] [place] [address] PCP - Attributed-Exclusive Choice 06/20/18 11/17/18 Bhavani Cm, RN Plant Technician 09/21/16 [place] [address] [address] Endocrinology 11/18/18 documented as of this encounter
== END 2024-09-08 13:47 | disposition home or self-care (01) ==
LOC: ANHIMG 13:47
PROVIDERS: PCP Clinical Nurse Specialist
DX: Z78.0 Asymptomatic menopausal state (principal)
CPT/HCPCS: 77080

== ENCOUNTER 2024-09-13 08:58 | Outpatient (CLI) | payer BC, SELFPAY ==
--- OUTSIDE RECORDS SUMMARY | 2024-09-13 09:02 | XMS_ITS | Encounter Summary ---
Author Organization [facility] Address [address] [facility] [place] [address] Care Team Providers Care Revenue Specialist Name Role Phone Madelin Jaeger MD Primary Care Provider [phone] Bhavani Cm RN Unavailable Neo Garcia MD Primary Care Provider [phone] Neo Garcia MD Primary Care Provider [phone] Madelin Jaeger MD Primary Care Provider [phone] Odalis Guerrero MD Primary Care Provider [phone] Shawnee Marshall DO Primary Care Provider [phone] Coni Hawk MD Unavailable [phone] Madelin Jaeger MD Primary Care Provider [phone] Shawnee Marshall DO Primary Care Provider [phone] Odalis Guerrero MD Unavailable [phone] Encounter Details Date Type Department Care Team (Late st Contact Info) Description 04/12/2017 Lab Requisition [facility] - Laboratory [address] [place] [address] Unknown, Provider Social History Tobacco Use [...] Under Investigation 04/23/2020 04/23/2020 04/25/2020 6:35 PM INSPECTOR METAL FABRICATING documented as of this encounter Care Teams Revenue Specialist Relationship Specialty Start Date End Date Madelin Jaeger MD [address] [place] [address] PCP - General Family Medicine 04/29/15 10/01/17 Neo Garcia MD [address] [place] [address] PCP - General 10/02/17 10/02/17 Neo Garcia MD [address] [place] [address] PCP - General 10/03/17 10/28/17 Madelin Jaeger MD [address] [place] [address] PCP - General Family Medicine 10/29/17 03/18/18 Odalis Guerrero MD [address] [place] [address] PCP - General Family Medicine 03/19/18 08/13/18 Shawnee Marshall DO [address] [place] [address] PCP - General Internal Medicine 08/14/18 06/18/19 Madelin Jaeger MD [address] [place] [address] PCP - General 06/19/19 01/22/20 Shawnee Marshall DO [address] [place] [address] PCP - General Internal Medicine 01/23/20 Odalis Guerrero MD [address] [address] PCP - Attributed-Exclusive Choice 06/20/18 11/17/18 Bhavani Cm, RN Lead Oracle Developer 09/21/16 [place] [address] [address] Endocrinology 11/18/18 documented as of this encounter
--- OUTSIDE RECORDS SUMMARY | 2024-09-13 09:02 | XMS_ITS | Encounter Summary ---
Author Organization [facility] Address [address] [place] [address] Care Team Providers Care Applied Computer Science Professor Name Role Phone Madelin Jageer MD Primary Care Provider [phone] Bhavani Cm RN Unavailable [phone] Neo Garcia MD Primary Care Provider [phone] Neo Garcia MD Primary Care Provider [phone] Madelin Jaeger MD Primary Care Provider [phone] Odalis Guerrero MD Primary Care Provider [phone] Shawnee Marshall DO Primary Care Provider Coni Hawk MD Unavailable [phone] Madelin Jaeger MD Primary Care Provider [phone] Shawnee Marshall DO Primary Care Provider Odalis Guerrero MD Unavailable Encounter Details Date Type Department Care Team (Late st Contact Info) Description 12/11/2014 Lab Requisition [facility] [address] [place] [address] Unknown, Provider Social History Tobacco Use Types [...] IgG 2414.0 IV 12/14/2014 11:25 AM CDT [email or web address] ([facility]) Comment: INTERPRETIVE INFORMATION: VZV Ab, IgG 134 [...] Provider Unknown LAB - CHEMISTRY JUSTA SCHULZ [employer] [facility]) [address] * RUBEOLA ANTIBODY IGG (12/11/2014 2:45 PM CDT) Measles (Rubeola) Antibody IgG >300.0 AU/mL 12/14/2014 11:20 AM CDT [email or web address] ([facility]) Comment: INTERPRETIVE INFORMATION: Measles (Rubeola) Antibody, IgG [...] PM CDT Provider Unknown LAB - CHEMISTRY [employer] Performing Organization Address City/[facility] Co de Phone Number [employer] [facility]) [address] [place] [address] * MUMPS ANTIBODY IGG (12/11/2014 2:45 PM CDT) [facility] Signature Mumps Virus Antibody IgG >300.0 AU/mL 12/14/2014 11:23 AM CDT [employer] ([facility]) Comment: INTERPRETIVE INFORMATION: Mumps Ab, IgG by [...] PM CDT Provider Unknown LAB - CHEMISTRY [employer] [place] [employer] ([facility]) [address] [place] [address], [facility] * RUBELLA ANTIBODY IGG (12/11/2014 2:45 PM CDT) Rubella Antibody IgG Positive - Immune 12/11/2014 6:46 PM CDT [facility] Blood BLOOD SPECIMEN / Unknown Venipuncture / Unknown 12/11/2014 2:45 PM CDT 12/11/2014 5:48 PM CDT Provider Unknown LAB - SEROLOGY ORDER ELO [facility] [address] [place] [address] documented in this encounter Visit Diagnoses Not on filedocumented in this encounter Additional Health Concerns Infection Onset Date Last Indicated Resolved Time COVID-19 Under Investigation 02/01/2020 02/01/2020 02/01/2020 9:41 AM CDT COVID-19 Under Investigation 02/01/2020 02/01/2020 02/02/2020 6:20 AM CDT COVID-19 Under Investigation 04/23/2020 04/23/2020 04/25/2020 6:35 PM LEAD CASHIER documented as of this encounter Care Teams Applied Computer Science Professor Relationship Specialty Start Date End Date Madelin Jaeger MD [address] [place] [address] PCP - General Family Medicine 04/29/15 10/01/17 Neo Garcia MD [address] [place] [address] PCP - General 10/02/17 10/02/17 Neo Garcia MD [address] [place] [address] PCP - General 10/03/17 10/28/17 Madelin Jaeger MD [address] [place] [address] PCP - General Family Medicine 10/29/17 03/18/18 Odalis Guerrero MD [address] [place] [address] PCP - General Family Medicine 03/19/18 08/13/18 Shawnee Marshall DO [address] [place] [phone] PCP - General Internal Medicine 08/14/18 06/18/19 Madelin Jaeger MD [address] [place] [address] PCP - General 06/19/19 01/22/20 Shawnee Marshall DO [address] [place] [address] PCP - General Internal Medicine 01/23/20 Odalis Guerrero MD [address] [facility] [address] [place] [address] PCP - Attributed-Exclusive Choice 06/20/18 11/17/18 Bhavani Cm, RN Shoe Dyer 09/21/16 [place] [address] [address] Endocrinology 11/18/18 documented as of this encounter
--- OUTSIDE RECORDS SUMMARY | 2024-09-13 09:02 | XMS_ITS | Encounter Summary ---
Author Organization [facility] Address [address] [place] [address] Care Team Providers Care Rn Bone Marrow Transplant Name Role Phone Bhavani Cm RN Unavailable [phone] Coni Hawk MD Unavailable Madelin Jaeger MD Primary Care Provider [phone] Shawnee Marshall DO Primary Care Provider [phone] Encounter Details Date Type Department Care Team (Late st Contact Info) Description 09/05/2019 Lab Requisition [facility] - Laboratory [address] [place] [address] Social History Tobacco Use Types Packs/Day [...] Under Investigation 04/23/2020 04/23/2020 04/25/2020 6:35 PM STAMP MOUNTER documented as of this encounter Care Teams Rn Bone Marrow Transplant Relationship Specialty Start Date End Date Madelin Jaeger MD [address] [place] [address] PCP - General 06/19/19 01/22/20 Shawnee Marshall DO [address] [place] [address] PCP - General Internal Medicine 01/23/20 Bhavani Cm, RN Bindery Chief 09/21/16 [place] [address] [address] Endocrinology 11/18/18 documented as of this encounter
--- OUTSIDE RECORDS SUMMARY | 2024-09-13 09:02 | XMS_ITS | Continuity of Care Document ---
Author Organization [facility] Address [address] [place] [address] Phone Care Team Providers Care Food And Beverage Outlets Manager Name Role Phone Timoteo, Edward Unavailable Unavailable Advance Directives Directive Yes / No Effective Date File Name No Information Encounters Encounter Description Practice Location Reason(s) For Visit Diagnoses Date Provider Providers Copied on Encounter [facility], [address], [place], [place], [address], [place] tel:[phone] [facility] No Information 4-[address] Doisy Edward. [address] , [address], [place], [address], [place]. tel:[phone] Family History Family Member Type Diagnosis Age At Onset No Information Payers Payer name Insurance type Covered democrat ID Authoriza tion(s) No Information Social History [...]
--- OUTSIDE RECORDS SUMMARY | 2024-09-13 09:02 | XMS_ITS | Clinical Summary ---
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
--- OUTSIDE RECORDS SUMMARY | 2024-09-13 09:02 | XMS_ITS | Encounter Summary ---
Author Organization [facility] Address [address] [place] [address] Care Team Providers Care Aircraft Metalsmith Name Role Phone Bhavani Cm RN Unavailable Coni Hawk MD Unavailable [phone] Shawnee Marshall DO Primary Care Provider [phone] Encounter Details Date Type Department Care Team (Late st Contact Info) Description 09/10/2024 Orders Only [facility] - Endocrinology [id number] [place] [address], [address] [address] [place] [id number] [place] [address] Post-menopausal Social History Tobacco Use Types Packs/Day Years [...] Procedure Name Priority Date/Time Associated Diagnosis Comments DEXA BONE DENSITY AXIAL SKELETON Routine 09/09/19 25 Post-menopausal documented in this encounter Results * Dexa Bone Density Axial Skeleton (09/08/2024) Anatomical Region Laterality Modality Other 09/08/2024 Coni Hawk MD DEXA ORDERABLES documented in this encounter Visit Diagnoses Diagnosis Post-menopausal Asymptomatic postmenopausal status (age-related) (natural) documented in this encounter Care Teams Aircraft Metalsmith Relationship Specialty [place] [address] [facility] [address] [place] [address] PCP - General Internal Medicine 01/23/20 Bhavani Cm, RN Supervisory Aide 09/21/16 [place] [address] [facility] [address] [place] [address] Endocrinology 11/18/18 documented as of this encounter
--- OUTSIDE RECORDS SUMMARY | 2024-09-13 09:02 | XMS_ITS | Continuity of Care Document ---
Author Organization [facility] Address [address] [place] [address] Phone Care Team Providers Care Compo Caster Name Role Phone Shawnee Marshall DO Unavailable Unavailable Allergies, Adverse Reactions, Alerts Substance Reaction Status Criticality nickel RashRash Active No Information chlorthalidone RashRash Active No Informatio n Medications Medication Instructions Dosage Effective Dates (start - stop) Status Comments Multiple Vitamins tablet - Activ e [place]-3 350 mg-235 mg-90 mg-597 mg capsule,delayed release - Active Vitamin B-12 50 mcg tablet - Active zinc 50 mg tablet - Active Dosoquin 5,500 unit-200 mcg tablet - Active Procedures Procedure Date Pt inelig neg scrn depres OFFICE [id number] BODY MASS INDEX DOCD SYST BP GE [...] Diagnoses Date Provider Providers Copied on Encounter Nagi, [address], [place], [place], [address], [place] tel:[phone] [facility] No Information [address], [address], [place], [place], [address] , [place]. tel: [phone] OFFICE HVEZM-BLU-GJI ANDED [facility], [address], [place], [place], [address], tel:[phone] [facility] Chronic Conditions (chief complaint) Nontoxic multinodular goiterAllergic rhinitis, unspecified [address], [address], [place], [place], [address] , [place]. tel: [phone] Referring Provider: Shawnee Pearce, [address], [place], [address] . tel:[phone] [facility], [address], [place], [place], [address], tel:[phone] [facility] Nontoxic multinodular goiterWell adult exam [address], [address], [place], [place], [address] , [place]. tel: [phone] Referring Provider: Shawnee Pearce, [address], [place], [address] . tel:[phone] Family History Family Member Type Diagnosis Age At Onset Problem (finding) Family history of hyper tension Problem (finding) Family history of premature coronary heart disease Problem (finding) Family history of strok e Problem (finding) Family history of hyper cholesterolemia Payers Payer name Insurance type Covered republican ID Víctora marylandon(s) [facility] [id number] Social History Type Description Quantity Date Captured [...]
--- OUTSIDE RECORDS SUMMARY | 2024-09-13 09:02 | XMS_ITS | Data Portability ---
Author Organization [facility] [place] Address [address] [place] [address] Care Team Providers Care Reference Librarian Name Role Phone ARUNBJORN PHILLIPS Primary Care Provider Assessment No assessment recorded. Plan of Treatment Reminders Order Date Submit Date Provider Last Modified By Organization Details Last Modified Time Details Appointments None recorded. Lab None recorded. Referral None recorded. Procedures None recorded. Surgeries None recorded. Imaging US, pelvis [address], [facility] [address], [address], [place], [address], 20:32:23 US, transvagina l [address], [facility] [address], [place], [address], 4 20:32:23 Medication Orders None recorded. Patient TargetsNo targets recorded. Patient InstructionsNo instructions recorded. Reason for Referral None Reported. Results Created Date Observation Date Name Description Value Unit Range Abnormal Flag Note LastModifiedBy Organization Detail LastModifiedTime 01/28/2001/28/2024 US, pelvi s No observ ation record ed. [facility] [address], [place], [address], 01/28/2024 18:12:51 01/28/20 24 01/28/2024 US, trans vagin al No observ ation record ed. [facility] [address], [place], [address], 01/28/2024 18:13:04 01/28/20 24 01/28/2024 US, prisca s No observ ation record ed. ANTHONY Carley [address], [place], [address], 01/29/2024 10:40:13 Result Notes None recorded. Problems Name Problem SNOMED Code Status Onset Date Resolution Date Notes Provider Name and Address Organization Details Recorded Time Urinary tract infectiou s disease 08191692 Active 2010 Urinary Tract Infection; Recorded Elsewhere: No Locatio n: [facility] rce: EHR Chroni c: N Practice ID: 0001 Billa ble Time: 08:30:00 AM Not Available [facility] 0 22:01:04 Specializ ed medical examinati on Active 2013 Gynecologi chris Examinatio n;Recorded Elsewhere: No Locatio n: [facility] rce: EHR Chroni c: N Practice ID: 0001 Billa ble Time: 02:30:00 PM Not Available [facility] 0 22:01:04 Screening for malignant neoplasm of rectum Active 2012 Screening for malignant neoplasms of the rectum;Rec orded Elsewhere: No Locatio n: [facility] rce: EHR Chroni c: N Practice ID: 0001 Billa ble Time: 08:30:00 AM Not Available [facility] 0 22:01:04 Screening for malignant neoplasm of cervix Active 2012 Screening for malignant neoplasms of the cervix;Rec orded Elsewhere: No Locatio n: [facility] rce: EHR Chroni c: N Practice ID: 0001 Billa ble Time: 08:30:00 AM Not Available [facility] 0 22:01:04 Microscop ic hematuria 825046367 Active 2013 MICROSCOPI C HEMATURIA; Recorded Elsewhere: No Locatio n: [facility] rce: EHR Chroni c: N Practice ID: 0001 Billa ble Time: 02:30:00 PM Not Available [facility] 0 22:01:04 Dyspareun ia 26969553 Active 2011 Dyspareuni a;Recorded Elsewhere: No Locatio n: [facility] rce: EHR Chroni c: N Practice ID: 0001 Billa ble Time: 02:00:00 PM Not Available [facility] 0 22:01:04 Abdominal pain 47049559 Active 2011 Abdominal pain, other specified site;Recor ded Elsewhere: No Locatio n: [facility] rce: EHR Chroni c: N Practice ID: 0001 Billa ble Time: 02:00:00 PM Not Available [facility] 0 22:01:04 Blood in urine 26559053 Active 2013 HEMATURIA NOS;Record ed Elsewhere: No Locatio n: [facility] rce: EHR Chroni c: N Practice ID: 0001 Billa ble Time: 02:30:00 PM Not Available [facility] 0 22:01:[address] Concept Active 2015 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) (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) w/o abn findings;R ecorded Elsewhere: No Locatio n: [facility] rce: EHR Chroni c: N Practice ID: 0001 Billa ble Time: 04:30:00 PM Not Available [facility] 0 22:01:05 Adult health examinati on Active 2013 ROUTINE MEDICAL EXAM;Recor ded Elsewhere: No Locatio n: [facility] rce: EHR Chroni c: N Practice ID: 0001 Billa ble Time: 02:30:00 PM Not Available [facility] 0 22:01:05 Female genital organ symptoms 062217402 Active 2011 Unspecifie d symptom associated with female genital organs;Rec orded Elsewhere: No Locatio n: [facility] rce: EHR Chroni c: N Practice ID: 0001 Billa ble Time: 02:00:00 PM Not Available [facility] 0 22:01:05 Procedure on genitouri nary system Active 2010 Sterilizat ion;Practi ce ID: 0001 Not Available [facility] 0 22:01:05 Pre-surge ry evaluatio n Active 2010 Pre-operat yessy examinatio n, unspecifie d;Practice ID: 0001 Not Available [facility] 0 22:01:05 Problem Notes None recorded. [...] completed mushtaq Hannah [address], [place], [address], 01/28/2024 18:12:51 01/28/2024 US, transvaginal completed mushtaq westbrook [address], [place], [address], 01/28/2024 18:13:04 01/28/2024 [facility] [address], [place], [address], 01/29/2024 10:40:13 Procedure Notes None recorded. Medical Equipment None Reported. Allergies Allergen ID Allergen Name Allergen Category Reaction Reaction Severity Criticality Documentation Date Start Date Code Code System Note Provider Name and Address Organization Details Recorded Time 06375 chlorhexi dine medicatio n rash moderate Not available 01/09/2024 2358 RxNorm Gertrude montilla [facility] 4 10:23:48 Medications Name Sig Start [...] Prescrib ed Elsewher e: No Locat ion: [facility] odify By: dasha alegria DateTime : 05/10/20 11 08:30:00 AM Not Available Not Available Not Available lisinopri l 10 mg tablet TAKE 1 TABLET BY MOUTH DAILY active Not Available Not Available No t Available Vitamins and Minerals tablet active Prescrib ed Elsewher e: Yes Loca tion: [facility] odify By: dasha alegria DateTime : 08/07/19 13 08:30:00 AM Not Available Not Available Not Available Vitals Date Recorded Body height Body mass index (BMI) Body weight Systolic blood pressure Diastolic blood pressure Provider Name and Address Organization Details Last Updated DateTime 01/09/2024 167.64 cm 23.5 kg/m2 13028.77 g 124 mm[Hg] 77 mm[Hg] Gertrude Smith [facility] 4 10:29:32 Social History Question Answer [...] Or The Highest Degree You Have Received? PG02132-3 Information not available 01/09/2024 What Is Your [...] Anxious, Or Unable To Sleep At Night)? [id number] Information not available 01/09/2024 Do You Use [...] (Food, seasonal, environmental ) N Other N Blood Transfusion N Breast Cancer N Drug/Latex Allergies/Reactions N Dermatologic Disorders N Lung Disease N Defects or Inherited Disease N Breast Problem N Gestational Diabetes N Hematologic disorders N Anesthesia Complications N History of STI N Deep Vein Thrombosis N Polycystic ovary syndrome N Anxiety Disorder N Autoimmune disease N Arthritis N Polyps N Infertility N Acid Reflux (GERD) N History of abnormal pap N Cancer N Varicosities N Stroke N Neurologic/Epilepsy N Endometriosis N High Cholesterol N Fibromyalgia N Headaches N Kidney Disease N Heart Problems N Thyroid Problems N Kidney or Bladder Problems N GI Problems N Eating Disorder [...] SNOMED-CT Code Diagnosis ICD10 Code Diagnosis Note [id number] ROSI HUDSON MD [place] [address] [address] 01/09/2024 09:56:31 01/09/2024 10:57:33 Pain in pelvis 45960070 R10.2 - patient reports ovulation- like pain since 05/2023- irregular q2-6 weeks- unilateral , however has had pain on both sides in separate episodes- s/p hysterecto my in 2017, ovaries still in place- no bleeding post hyst- labwork from endocrinol ogy reviewed today, FSH 96, postmenopa usal- will order pelvic US to evaluate ovaries [id number] [facility] [address] [address] 01/28/2024 13:29:45 01/28/2024 14:38:02 Pain in pelvis 69140367 R10.2 Health Concerns Section Related Observation LastModified by Organization Detai ls LastModified Time None Recorded Concern Status LastModified by Organization Details LastModified Time None Recorded Advance Directives Directive None Recorded Payers Encounter Date Sequence Insurance Name Policy Number Policy Mabry Covered Member ID Mabry Member ID Guarantor Name 01/09/2024 1 [employer] 111 Bhavani Casillas [id number] Bhavani Casillas 01/28/2024 1 [employer] 111 Bhavani Casillas [id number] Bhavani Casillas Notes Date Note Type Note [...] years. Previously had bloodwork done by her terry cloth cutter hand, was told she was postmenopausal in 2021. ROSI HUDSON MD [address], [place], [address], [facility] 01/09/2024 10:54:51 OBGyn Episode Ob Episode Information Episode Created Date Number of Fetuses Patient Bloodtype Patient rh Status Prepregnancy Weight lbs Domestic Partner Domestic Partner Phone Father Name Assembler Arranger Status 01/09/20 24 1 CLOSED Fetus Data First Name Last Name Admitted to NICU Weight (g) Sex Living Outcome Pediatric Complications Fetus ID Race Codes Race Delivery Type 3656.85 8704 F Full Term [id number] V Back Lee Calculation Initial Lee Date [...] Domestic Partner Domestic Partner Phone Father Name Assembler Arranger Status 01/09/20 24 1 CLOSED Fetus Data First Name Last Name Admitted to NICU Weight (g) Sex Living Outcome Pediatric Complications Fetus ID Race Codes Race Delivery Type 3430.06 2704 F Full Term [id number] Primary Lee Calculation Initial Lee Date Initial [...]
--- OUTSIDE RECORDS SUMMARY | 2024-09-13 09:02 | XMS_ITS | Clinical Summary ---
Author Organization [facility] [employer] Address [address] [facility] [place] [address] Care Team Providers Care Social Services Designee Name Role Phone Tyree Cm RN Unavailable [phone] Coni Hawk MD Unavailable [phone] Shawnee Marshall DO Primary Care Provider [phone] Source Comments [facility],non-owned Affiliates and Associated Physician Practices is amultiple site organization consisting of ambulatory clinics and hospital sitesin [place], [place], [place]. This disclosure is being madepursuant to the Care Everywhere program and may not contain all information available regarding this patient. Last updated 18.[facility] Allergies Active Allergy Reactions Criticality Noted [...] 1 Tab by mouth once daily Active [place]-3 Fatty Acids (ULTRA OMEGA 3 PO) Take [...] Encounters Date Type Department Care Team Description 09/10/2024 Orders Only [facility] - Endocrinology [address] [place] [address], [address] [address] Coni Hawk MD Post-menopausal 06/22/2024 Orders Only [facility] - Endocrinology [address] [place] [address], [address] [place] [address] Coni Hawk MD Nodular goiter, non-toxic from [...] COLON CA SCREENING 04/05/2019 04/05/2018 COVID-19 VACCINE ( - season) 2024 INFLUENZA VACCINE (#1) 2024 [...] Comments DEXA BONE DENSITY AXIAL SKELETON Routine 09/08/2024 Post-menopausal LIPID PROFILE Routine 04/20/2023 8:29 AM CDT [...] Recently Relevant to Health Maintenance Results * Dexa Bone Density Axial Skeleton (09/08/2024) Anatomical Region Laterality Modality Other 09/08/2024 Coni Hawk MD DEXA ORDERABLES * (ABNORMAL) LIPID PROFILE (04/20/2023 8:29 AM [...] LDL-C. Jorge BURDICK et al. RUSTY. 2013;310(19): 7409-0879 (http://education.Securens/faq/UBA481) CHOL/HDLC RATIO 4.5 <5.0 (calc) [facility] Non HDL Cholesterol 175(H) <130 mg/dL (calc) [facility] Comment: For patients with diabetes plus 1 major ASCVD risk factor, treating to a non-HDL-C goal of <100 mg/dL (LDL-C of <70 mg/dL) is considered a therapeutic option. Test Performed at: [email or web address] [address] CHUCKY AQUINO MD Blood BLOOD SPECIMEN / Unknown 04/20/2023 8:29 AM CDT 04/20/2023 8:34 AM CDT Coni Hawk MD LAB - CHEMISTRY ORDERABLES Performing Organization Address City/[facility] Co de Phone Number [address] [address] * OCCULT BLOOD FECES IMMUNOASSAY (04/05/2018 7:47 AM CDT) Pathologist [facility] Occult Blood Immunoassay Negative Negative 04/05/2018 8:51 AM CDT [facility] Stool STOOL SPECIMEN / Unknown Collection / Unknown 04/05/2018 7:47 AM CDT 04/05/2018 7:47 AM CDT LAB - MICROBIOLOGY O RDERABLES Performing Organization Address City/[facility]/ZIP Co de Phone Number [facility] [address] [place] [address] * HEPATITIS C ANTIBODY (03/28/2018 8:36 AM CDT) Pathologist [facility] Hepatitis C Antibody <0.1 0.0 - 0.9 s/co ratio [facility] ACCOUNT BILL Comment: Negative: < 0.8 Indeterminate: 0.8 - 0.9 Positive: > 0.9 . The CDC recommends that a positive HCV antibody result be followed up with a HCV Nucleic Acid Amplification test (066858). FASTING Blood BLOOD SPECIMEN / Unknown 03/28/2018 8:36 AM CDT 03/28/2018 Narrative Resulting Agency Comment [facility] [address] [facility] [id number] Odalis Guerrero MD LAB - CHEMISTRY OR DERABLES [facility] ACCOUNT BILL [address] [place] [address] * MAMMOGRAM DIGITAL SCREENING BILATERAL G0202 (10/23/2017 [...] been scanned as a document/letter in the [employer] EMR (media tab). If there are questions regarding this information or our Cancer Genetics Risk Assessment Program, please do not hesitate to contact [phone]. Narrative 10/23/2017 10:53 AM CDT Bilateral mammography. Most recent comparison: 2015 History: Screening mammogram. Technique: Bilateral breasts. Mammography views included: CC and MLO. Images interpreted with CAD. Following current [facility] protocol, 3D mammographic tomosynthesis images were obtained and reviewed on a dedicated viewing station. FINDINGS: Breast composition: Heterogeneously dense which may obscure small masses. No suspicious calcifications, masses, or areas of architectural distortion. Neo Garcia MD MAMMO ORDERABLES from Last 3 Months or Most Recently Relevant to Health Maintenance Advance Directives Documents on File Type Date Recorded Patient Solar Installation Technician Expl anation Adv Directive/Living Will/POA 09/21/2016 7:56 PM * Full Code (Latest Code Status on File) Date Activated Date Inactivated Comments 09/20/2016 8:58 AM 09/21/2016 3:41 PM Care Teams Social Services Designee Relationship Specialty [place] [address] [facility] [address] [place] [address] PCP - General Internal Medicine 01/23/20 Tyree Cm, RN Orthodontist Small Business Owner 09/21/16 [place] [address] [place] [address] Endocrinology 11/18/18
--- OUTSIDE RECORDS SUMMARY | 2024-09-13 09:02 | XMS_ITS | Encounter Summary ---
Author Organization [facility] Address [address] [place] [address] Care Team Providers Care Field Marketing Representative Name Role Phone Bhavani Cm RN Unavailable [phone] Odalis Guerrero MD Primary Care Provider [phone] Shawnee Marshall DO Primary Care Provider Coni Hawk MD Unavailable [phone] Madelin Jaeger MD Primary Care Provider [phone] Shawnee Marshall DO Primary Care Provider [phone] Odalis Guerrero MD Unavailable [phone] Encounter Details Date Type Department Care Team (Late st Contact Info) Description 04/05/2018 Lab Requisition [facility] - Laboratory [address] [place] [address] Social History Tobacco Use Types Packs/Day [...] BLOOD FECES IMMUNOASSAY (04/05/2018 7:47 AM CDT) [facility] Occult Blood Immunoassay Negative Negative 04/05/2018 8:51 AM CDT [facility] Stool STOOL SPECIMEN / Unknown Collection / Unknown 04/05/2018 7:47 AM CDT 04/05/2018 7:47 AM CDT LAB - MICROBIOLOGY O RDERABLES Performing Organization Address City/State/[facility] Co de Phone Number [facility] [address] [place] [address] documented in this encounter Visit Diagnoses Not on filedocumented in this encounter Additional Health Concerns Infection Onset Date Last Indicated Resolved Time COVID-19 Under Investigation 02/01/2020 02/01/2020 02/01/2020 9:41 AM CDT COVID-19 Under Investigation 02/01/2020 02/01/2020 02/02/2020 6:20 AM CDT COVID-19 Under Investigation 04/23/2020 04/23/2020 04/25/2020 6:35 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 documented as of this encounter Care Teams Field Marketing Representative Relationship Specialty Start Date End Date Odalis Guerrero MD PCP - General Family Medicine 03/19/18 08/13/18 Shawnee Marshall DO PCP - General Internal Medicine 08/14/18 06/18/19 Madelin Jaeger MD [address] [place] [address] PCP - General 06/19/19 01/22/20 Shawnee Marshall DO PCP - General Internal Medicine 01/23/20 Odalis Guerrero MD [address] [facility] [address] [place] [address] PCP - Attributed-Exclusive Choice 06/20/18 11/17/18 Bhavani Cm, RN Flat Sorting Machine Clerk 09/21/16 [place] [address] [address] Endocrinology 11/18/18 documented as of this encounter
--- OUTSIDE RECORDS SUMMARY | 2024-09-13 09:02 | XMS_ITS | Referral Summary ---
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
[2024-09-13 09:44] LABS: INR 0.9; Prothrombin Time 12.3 Seconds (11.1-14.7)
[2024-09-13 09:45] LABS: Partial Thromboplastin Time 27.8 Seconds (22.3-36.8)
== END 2024-09-13 08:59 | disposition home or self-care (01) ==
LOC: ANHLAB 09:00
PROVIDERS: PCP Clinical Nurse Specialist; Visit Provider Urology
DX: Z01.812 Encounter for preprocedural laboratory examination (principal); N20.0 Calculus of kidney
CPT/HCPCS: 36415; 85610; 85730; 87086; 87186

== ENCOUNTER 2024-09-19 00:58 | Day surgery (SDC) | payer BC, SELFPAY ==
[2024-09-12 11:14] VITALS: BMI 22.9
--- NOTE | 2024-09-12 11:22 | PC.NURSE ---
Report to the Outpatient Waiting Room, entrance under the green pavilion located off [facility], at time _0800_ on date _[id number]_. Planned Procedure Time: _1000_.? Time changes happen often and if your time is changed the preop area will call you the afternoon before. - You and your visitor will be asked to self-screen and do not enter if you have any COVID symptoms. Please call surgeon if you need to reschedule. - A mask is optional within the hospital at this time. Patients may have clear liquids (water, carbonated beverages, clear teas, apple juice) until 3 hours prior to surgery with a maximum of 20 ounces. - No food from midnight until time of surgery and no smoking, or chewing tobacco (or any form of nicotine). No chewing gum, candy or mints. Take only the following medications with a SIP of water on the morning of surgery: ___Levothyroxine___ DO NOT STOP ANY OF YOUR OTHER PRESCRIPTION MEDICATIONS PRIOR TO SURGERY EXCEPT THE FOLLOWING Hold all vitamins and supplements for 3 days per anesthesiologist. Medications to discontinue per physician Date to take last dose Please no make-up, nail south sudanese, hairspray, perfume, deodorant, or body powder the day of surgery.? No jewelry (including any body piercings) or valuables the day of surgery, leave them at home.? Please take a shower or bath the night before, or the morning of, surgery with an antibacterial soap.? Wear comfortable, loose fitting clothing.? - Jewelry must be removed prior to entering the operating room.? Rings and piercings that are not removed may be cut off. - The hospital will not accept responsibility for valuables.? - Please leave all valuables, including medications, at home the day of surgery. If you are going home after surgery, a licensed driver supervisor must drive you home.? - NO public transportation without another adult if you receive anesthesia. - We recommend that an adult stay with you for 24 hours following discharge. - We also recommend that you do not drive, make important decision, drink alcoholic beverages, or take any drugs that were not prescribed by your health care provider for at least 24 hours after your discharge time. Follow any additional instructions given to you from your surgeon. Telephone instructions given to __Bhavani__and asked if any additional questions and then verbalized understanding. Patient advised to call surgeon office or pre surgery nurse liaison [phone] if any additional questions.
[2024-09-19] VITALS (8 sets, daily range): BP systolic 96–129; BP diastolic 48–74; PULSE 58–80; RESP 13–20; TEMP 36.2; O2SAT 98–100
--- NOTE | ~2024-09-19 | XR_ITS ---
XR abdomen/kub 1V 09/19/2024 08:06 Indication: Left renal stone Procedure: KUB Comparison: 08/25/2014 Findings: There is a left renal stone measuring 6 mm. Bowel gas pattern nonobstructive. The lower geronimo f of the abdomen is not included on the examination. Impression: 1: Limited study. 6 mm left renal stone. Reviewed, dictated and finalized at location A. Impression: 1: Limited study. 6 mm left renal stone.
--- OUTSIDE RECORDS SUMMARY | 2024-09-19 01:00 | XMS_ITS | Clinical Summary ---
Author Organization [facility] [employer] Address [address] [place] [address] Care Team Providers Care Bariatric Coordinator Name Role Phone Tyree Cm RN Unavailable [phone] Coni Hawk MD Unavailable [phone] Shawnee Marshall DO Primary Care Provider [phone] Source Comments [facility],non-owned Affiliates and Associated Physician Practices is amultiple site organization consisting of ambulatory clinics and hospital sitesin [place], [place], [place] and [place]. This disclosure is being madepursuant to the Care Everywhere program and may not contain all information available regarding this patient. Last updated 18.[facility] [employer] Allergies Active Allergy Reactions Criticality Noted Date [...] 1 Tab by mouth once daily Active [place]-3 Fatty Acids (ULTRA OMEGA 3 PO) Take [...] Department Care Team Description 09/10/2024 Orders Only [facility] - Endocrinology [address] [place] [address], [address] [address] Coni Hawk MD Post-menopausal 06/22/2024 Orders Only [facility] - Endocrinology [address] [place] [address], [address] [place] [address] Coni Hawk MD Nodular goiter, non-toxic from [...] LDL-C. Jorge BURDICK et al. RUSTY. 2013;310(19): 4187-8534 (http://education.Entefy/faq/GOM485) CHOL/HDLC RATIO 4.5 <5.0 (calc) [facility] Non HDL Cholesterol 175(H) <130 mg/dL (calc) [facility] Comment: For patients with diabetes plus 1 major ASCVD risk factor, treating to a non-HDL-C goal of <100 mg/dL (LDL-C of <70 mg/dL) is considered a therapeutic option. Test Performed at: [facility] [address] CHUCKY AQUINO MD Blood BLOOD SPECIMEN / Unknown 04/20/2023 8:29 AM CDT 04/20/2023 8:34 AM CDT Coni Hawk MD LAB - CHEMISTRY ORDERABLES Performing Organization Address City/[facility] Co de Phone Number [address] [address] * OCCULT BLOOD FECES IMMUNOASSAY (04/05/2018 7:47 AM CDT) Pathologist [facility] Occult Blood Immunoassay Negative Negative 04/05/2018 8:51 AM CDT [facility] Stool STOOL SPECIMEN / Unknown Collection / Unknown 04/05/2018 7:47 AM CDT 04/05/2018 7:47 AM CDT LAB - MICROBIOLOGY O RDERABLES Performing Organization Address City/[facility]/ZIP Co de Phone Number [facility] [address] [place] [address] * HEPATITIS C ANTIBODY (03/28/2018 8:36 AM CDT) Pathologist [facility] Hepatitis C Antibody <0.1 0.0 - 0.9 s/co ratio [facility] ACCOUNT BILL Comment: Negative: < 0.8 Indeterminate: 0.8 - 0.9 Positive: > 0.9 . The CDC recommends that a positive HCV antibody result be followed up with a HCV Nucleic Acid Amplification test (886669). FASTING Blood BLOOD SPECIMEN / Unknown 03/28/2018 8:36 AM CDT 03/28/2018 Narrative Resulting Agency Comment [facility] [address] [facility] [id number] Odalis Guerrero MD LAB - CHEMISTRY OR DERABLES [facility] ACCOUNT BILL [address] [place] [address] * MAMMOGRAM DIGITAL SCREENING BILATERAL G0202 (10/23/2017 [...] been scanned as a document/letter in the [employer] EMR (media tab). If there are questions regarding this information or our Cancer Genetics Risk Assessment Program, please do not hesitate to contact [phone]. Narrative 10/23/2017 10:53 AM CDT Bilateral mammography. Most recent comparison: 2015 History: Screening mammogram. Technique: Bilateral breasts. Mammography views included: CC and MLO. Images interpreted with CAD. Following current [facility] protocol, 3D mammographic tomosynthesis images were obtained and reviewed on a dedicated viewing station. FINDINGS: Breast composition: Heterogeneously dense which may obscure small masses. No suspicious calcifications, masses, or areas of architectural distortion. Neo Garcia MD MAMMO ORDERABLES from Last 3 Months or Most Recently Relevant to Health Maintenance Advance Directives Documents on File Type Date Recorded Patient Conservation Technician Expl anation Adv Directive/Living Will/POA 09/21/2016 7:56 PM * Full Code (Latest Code Status on File) Date Activated Date Inactivated Comments 09/20/2016 8:58 AM 09/21/2016 3:41 PM Care Teams Bariatric Coordinator Relationship Specialty [place] [address] [facility] [employer] [address] [place] [address] PCP - General Internal Medicine 01/23/20 Tyree Cm, RN Metal Mold Dresser 09/21/16 [place] [address] [place] [address] Endocrinology 11/18/18
--- OUTSIDE RECORDS SUMMARY | 2024-09-19 01:00 | XMS_ITS | Encounter Summary ---
Author Organization [facility] Address [address] [facility] [place] [address] Care Team Providers Care Industrial Machine Operator Name Role Phone Bhavani Cm RN Unavailable [phone] Coni Hawk MD Unavailable [phone] Madelin Jaeger MD Primary Care Provider [phone] Shawnee Marshall DO Primary Care Provider [phone] Encounter Details Date Type Department Care Team (Late st Contact Info) Description 09/05/2019 Lab Requisition [facility] - Laboratory [address] [place] [address] Social History Tobacco Use Types Packs/Day [...] Under Investigation 04/23/2020 04/23/2020 04/25/2020 6:35 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
--- OUTSIDE RECORDS SUMMARY | 2024-09-19 01:00 | XMS_ITS | Referral Summary ---
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
--- OUTSIDE RECORDS SUMMARY | 2024-09-19 01:00 | XMS_ITS | Continuity of Care Document ---
Author Organization [facility] Address [address] [place] [address] Phone Care Team Providers Care Topology Professor Name Role Phone Uriahsy, Edward Unavailable Unavailable Advance Directives Directive Yes / No Effective Date File Name No Information Encounters Encounter Description Practice Location Reason(s) For Visit Diagnoses Date Provider Providers Copied on Encounter [facility], [address], [place], [place], [id number], [place] tel:[phone] [facility] No Information 4-[address] Edward. [address] , [address], [place], [address], [place]. tel:[phone] Family History Family Member Type Diagnosis Age [...]
--- OUTSIDE RECORDS SUMMARY | 2024-09-19 01:00 | XMS_ITS | Clinical Summary ---
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
--- OUTSIDE RECORDS SUMMARY | 2024-09-19 01:00 | XMS_ITS | Encounter Summary ---
Author Organization [facility] Address [address] [facility] [place] [address] Care Team Providers Care School Community Relations Coordinator Name Role Phone Madelin Jaeger MD Primary Care Provider [phone] Bhavani Cm RN Unavailable [phone] Neo Garcia MD Primary Care Provider [phone] Neo Garcia MD Primary Care Provider [phone] Madelin Jaeger MD Primary Care Provider [phone] Odalis Guerrero MD Primary Care Provider [phone] Shawnee Marshall DO Primary Care Provider Coni Hawk MD Unavailable [phone] Madelin Jaeger MD Primary Care Provider [phone] Shawnee Marshall DO Primary Care Provider Odalis Guerrero MD Unavailable [phone] Encounter Details Date Type Department Care Team (Late st Contact Info) Description 04/12/2017 Lab Requisition [facility] - Laboratory [address] [place] [address] Unknown, Provider Social History Tobacco Use [...] Under Investigation 04/23/2020 04/23/2020 04/25/2020 6:35 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 documented as of this encounter Care Teams School Community Relations Coordinator Relationship Specialty Start Date End Date Madelin Jaeger MD [address] [place] [address] PCP - General Family Medicine 04/29/15 10/01/17 Neo Garcia MD [address] [place] [address] PCP - General 10/02/17 10/02/17 Neo Garcia MD [address] [place] [address] PCP - General 10/03/17 10/28/17 Madelin Jaeger MD [address] [place] [address] PCP - General Family Medicine 10/29/17 03/18/18 Odalis Guerrero MD [address] [place] [address] PCP - General Family Medicine 03/19/18 08/13/18 Shawnee Marshall DO [address] [place] [address] PCP - General Internal Medicine 08/14/18 06/18/19 Madelin Jaeger MD [address] [place] [address] PCP - General 06/19/19 01/22/20 Shawnee Marshall DO [address] [place] [address] PCP - General Internal Medicine 01/23/20 Odalis Guerrero MD [address] [address] PCP - Attributed-Exclusive Choice 06/20/18 11/17/18 Bhavani Cm, RN Pin Inserter Regulator 09/21/16 [place] [address] [address] Endocrinology 11/18/18 documented as of this encounter
--- OUTSIDE RECORDS SUMMARY | 2024-09-19 01:00 | XMS_ITS | Continuity of Care Document ---
Author Organization [facility] Address [address] [place] [address] Phone Care Team Providers Care Certified Residential Medication Aide Name Role Phone Shawnee Marshall DO Unavailable Unavailable Allergies, Adverse Reactions, Alerts Substance Reaction Status Criticality nickel RashRash Active No Information chlorthalidone RashRash Active No Informatio n Medications Medication Instructions Dosage Effective Dates (start - stop) Status Comments Multiple Vitamins tablet - Activ e [place]-3 350 mg-235 mg-90 mg-597 mg capsule,delayed release - Active Vitamin B-12 50 mcg tablet - Active zinc 50 mg tablet - Active Dosoquin 5,500 unit-200 mcg tablet - Active Procedures Procedure Date Pt inelig neg scrn depres OFFICE [id number] BODY MASS INDEX DOCD SYST BP GE [...] Diagnoses Date Provider Providers Copied on Encounter [facility], [address], [place], [place], [address], [place] tel:[phone] [facility] Internal Medicine No Information [address], [place], [place], [address] , [place]. tel: [phone] OFFICE [id number] ANDED [facility], [address], [place], [place], [address], tel:[phone] [facility] Complete Care Chronic Conditions (chief complaint) Nontoxic multinodular goiterAllergic rhinitis, unspecified [address], [place], [place], [address] , [place]. tel: [phone] Referring Provider: Shawnee Pearce, [address], [place], [address] . tel:[phone] [facility], [address], [place], [place], [address], tel:[phone] [facility] Complete Care Nontoxic multinodular goiterWell adult exam [address], [address], [place], [place], [address] , [place]. tel: [phone] Referring Provider: Shawnee Pearce, [address], [place], [address] . tel:[phone] Family History Family Member Type Diagnosis Age At Onset Problem (finding) Family history of hyper tension Problem (finding) Family history of premature coronary heart disease Problem (finding) Family history of strok e Problem (finding) Family history of hyper cholesterolemia Payers Payer name Insurance type Covered libertarian ID Víctora marylandon(s) [facility] [id number] Social History Type Description Quantity Date Captured [...]
--- OUTSIDE RECORDS SUMMARY | 2024-09-19 01:01 | XMS_ITS | Encounter Summary ---
Author Organization [facility] Address [address] [place] [address] Care Team Providers Care Senior Telecommunications Specialist Name Role Phone Bhavani Cm RN Unavailable [phone] Odalis Guerrero MD Primary Care Provider [phone] Shawnee Marshall DO Primary Care Provider Coni Hawk MD Unavailable Madelin Jaeger MD Primary Care Provider [phone] Shawnee Marshall DO Primary Care Provider [phone] Odalis Guerrero MD Unavailable [phone] Encounter Details Date Type Department Care Team (Late st Contact Info) Description 04/05/2018 Lab Requisition [facility] - Laboratory [address] [place] [address] Social History Tobacco Use Types Packs/Day [...] BLOOD FECES IMMUNOASSAY (04/05/2018 7:47 AM CDT) [facility] Occult Blood Immunoassay Negative Negative 04/05/2018 8:51 AM CDT [facility] Stool STOOL SPECIMEN / Unknown Collection / Unknown 04/05/2018 7:47 AM CDT 04/05/2018 7:47 AM CDT LAB - MICROBIOLOGY O RDERABLES Performing Organization Address City/State/[facility] Co de Phone Number [facility] [address] [place] [address] documented in this encounter Visit Diagnoses Not on filedocumented in this encounter Additional Health Concerns Infection Onset Date Last Indicated Resolved Time COVID-19 Under Investigation 02/01/2020 02/01/2020 02/01/2020 9:41 AM CDT COVID-19 Under Investigation 02/01/2020 02/01/2020 02/02/2020 6:20 AM CDT COVID-19 Under Investigation 04/23/2020 04/23/2020 04/25/2020 6:35 PM 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 [address] [place] [address] PCP - Attributed-Exclusive Choice 06/20/18 11/17/18 Bhavani Cm, RN Accordion Maker 09/21/16 [place] [address] [address] Endocrinology 11/18/18 documented as of this encounter
--- OUTSIDE RECORDS SUMMARY | 2024-09-19 01:01 | XMS_ITS | Encounter Summary ---
Author Organization [facility] Address [address] [place] [address] Care Team Providers Care Director Adult Name Role Phone Madelin Jaeger MD Primary Care Provider [phone] Bhavani Cm RN Unavailable [phone] Neo Garcia MD Primary Care Provider [phone] Neo Garcia MD Primary Care Provider [phone] Madelin Jaeger MD Primary Care Provider [phone] Odalis Guerrero MD Primary Care Provider [phone] Shawnee Marshall DO Primary Care Provider Coni Hawk MD Unavailable [phone] Madelin Jaeger MD Primary Care Provider [phone] Shawnee Marshall DO Primary Care Provider Odalis Guerrero MD Unavailable Encounter Details Date Type Department Care Team (Late st Contact Info) Description 12/11/2014 Lab Requisition [facility] [address] [place] [address] Unknown, Provider Social History Tobacco Use Types [...] IgG 2414.0 IV 12/14/2014 11:25 AM CDT [employer] ([facility]) Comment: INTERPRETIVE INFORMATION: VZV Ab, IgG 134 [...] Provider Unknown LAB - CHEMISTRY JUSTA SCHULZ [facility]) [address] * RUBEOLA ANTIBODY IGG (12/11/2014 2:45 PM CDT) Measles (Rubeola) Antibody IgG >300.0 AU/mL 12/14/2014 11:20 AM CDT [employer] ([facility]) Comment: INTERPRETIVE INFORMATION: Measles (Rubeola) Antibody, IgG [...] PM CDT Provider Unknown LAB - CHEMISTRY [employer] Performing Organization Address City/[facility] Co de Phone Number [facility]) [address] [place] [address] * MUMPS ANTIBODY IGG (12/11/2014 2:45 PM CDT) [facility] Signature Mumps Virus Antibody IgG >300.0 AU/mL 12/14/2014 11:23 AM CDT [facility] ([facility]) Comment: INTERPRETIVE INFORMATION: Mumps Ab, IgG by [...] PM CDT Provider Unknown LAB - CHEMISTRY [employer] [facility] ([facility]) [address] [place] [address], [facility] * RUBELLA ANTIBODY IGG (12/11/2014 2:45 PM CDT) Rubella Antibody IgG Positive - Immune 12/11/2014 6:46 PM CDT [facility] Blood BLOOD SPECIMEN / Unknown Venipuncture / Unknown 12/11/2014 2:45 PM CDT 12/11/2014 5:48 PM CDT Provider Unknown LAB - SEROLOGY ORDER ELO [facility] [address] [place] [address] documented in this encounter Visit Diagnoses Not on filedocumented in this encounter Additional Health Concerns Infection Onset Date Last Indicated Resolved Time COVID-19 Under Investigation 02/01/2020 02/01/2020 02/01/2020 9:41 AM CDT COVID-19 Under Investigation 02/01/2020 02/01/2020 02/02/2020 6:20 AM CDT COVID-19 Under Investigation 04/23/2020 04/23/2020 04/25/2020 6:35 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 documented as of this encounter Care Teams Director Adult Relationship Specialty Start Date End Date Madelin Jaeger MD [address] [place] [address] PCP - General Family Medicine 04/29/15 10/01/17 Neo Garcia MD [address] [place] [address] PCP - General 10/02/17 10/02/17 Neo Garcia MD [address] [place] [address] PCP - General 10/03/17 10/28/17 Madelin Jaeger MD [address] [place] [address] PCP - General Family Medicine 10/29/17 03/18/18 Odalis Guerrero MD [address] [place] [address] PCP - General Family Medicine 03/19/18 08/13/18 Shawnee Marshall DO [address] [place] [phone] PCP - General Internal Medicine 08/14/18 06/18/19 Madelin Jaeger MD [address] [place] [address] PCP - General 06/19/19 01/22/20 Shawnee Marshall DO [address] [place] [address] PCP - General Internal Medicine 01/23/20 Odalis Guerrero MD [address] [facility] [address] [place] [address] PCP - Attributed-Exclusive Choice 06/20/18 11/17/18 Bhavani Cm, RN Basket Braider 09/21/16 [place] [address] [address] Endocrinology 11/18/18 documented as of this encounter
--- OUTSIDE RECORDS SUMMARY | 2024-09-19 01:01 | XMS_ITS | Encounter Summary ---
Author Organization [facility] Address [address] [facility] [place] [address] Care Team Providers Care Bindery Machine Operator Name Role Phone Bhavani Cm RN Unavailable [phone] Coni Hawk MD Unavailable Shawnee Marshall DO Primary Care Provider Encounter Details Date Type Department Care Team (Late st Contact Info) Description 09/10/2024 Orders Only [facility] - Endocrinology [address] [place] [address], [address] [address] [place] [id number] [place] [address] Post-menopausal Social History Tobacco Use Types [...] (natural) documented in this encounter Care Teams Bindery Machine Operator Relationship Specialty Start [place] [address] [facility] [address] [place] [address] PCP - General Internal Medicine 01/23/20 Bhavani Cm, RN Head Sampler 09/21/16 [place] [address] [facility] [address] [place] [address] Endocrinology 11/18/18 documented as of this encounter
--- OUTSIDE RECORDS SUMMARY | 2024-09-19 01:01 | XMS_ITS | Data Portability ---
Author Organization [facility] Holiday Address [address] [place] [address] Care Team Providers Care Dollyman Name Role Phone ARUNBJORN PHILLIPS Primary Care Provider Assessment No assessment recorded. Plan of Treatment Reminders Order Date Submit Date Provider Last Modified By Organization Details Last Modified Time Details Appointments None recorded. Lab None recorded. Referral None recorded. Procedures None recorded. Surgeries None recorded. Imaging US, pelvis [email or web address], [facility] [address], [address], [place], [address], 20:32:23 US, transvagina l [email or web address], [facility] [address], [place], [address], 4 20:32:23 Medication Orders None recorded. Patient TargetsNo targets recorded. Patient InstructionsNo instructions recorded. Reason for Referral None Reported. Results Created Date Observation Date Name Description Value Unit Range Abnormal Flag Note LastModifiedBy Organization Detail LastModifiedTime 01/28/2001/28/2024 US, pelvi s No observ ation record ed. [facility] [address], [place], [address], 01/28/2024 18:12:51 01/28/20 24 01/28/2024 US, trans vagin al No observ ation record ed. [facility] [address], [place], [address], 01/28/2024 18:13:04 01/28/20 24 01/28/2024 US, prisca s No observ ation record ed. ANTHONY Carley [address], [place], [address], 01/29/2024 10:40:13 Result Notes None recorded. Problems Name Problem SNOMED Code Status Onset Date Resolution Date Notes Provider Name and Address Organization Details Recorded Time Urinary tract infectiou s disease 43803482 Active 2010 Urinary Tract Infection; Recorded Elsewhere: No Locatio n: [facility] rce: EHR Chroni c: N Practice ID: 0001 Billa ble Time: 08:30:00 AM Not Available [facility] 0 22:01:04 Specializ ed medical examinati on Active 2013 Gynecologi chris Examinatio n;Recorded Elsewhere: No Locatio n: [facility] rce: EHR Chroni c: N Practice ID: 0001 Billa ble Time: 02:30:00 PM Not Available [facility] 0 22:01:04 Screening for malignant neoplasm of rectum Active 2012 Screening for malignant neoplasms of the rectum;Rec orded Elsewhere: No Locatio n: [facility] rce: EHR Chroni c: N Practice ID: 0001 Billa ble Time: 08:30:00 AM Not Available [facility] 0 22:01:04 Screening for malignant neoplasm of cervix Active 2012 Screening for malignant neoplasms of the cervix;Rec orded Elsewhere: No Locatio n: [facility] rce: EHR Chroni c: N Practice ID: 0001 Billa ble Time: 08:30:00 AM Not Available [facility] 0 22:01:04 Microscop ic hematuria 954981445 Active 2013 MICROSCOPI C HEMATURIA; Recorded Elsewhere: No Locatio n: [facility] rce: EHR Chroni c: N Practice ID: 0001 Billa ble Time: 02:30:00 PM Not Available [facility] 0 22:01:04 Dyspareun ia 13977621 Active 2011 Dyspareuni a;Recorded Elsewhere: No Locatio n: [facility] rce: EHR Chroni c: N Practice ID: 0001 Billa ble Time: 02:00:00 PM Not Available [facility] 0 22:01:04 Abdominal pain 63014941 Active 2011 Abdominal pain, other specified site;Recor ded Elsewhere: No Locatio n: [facility] rce: EHR Chroni c: N Practice ID: 0001 Billa ble Time: 02:00:00 PM Not Available [facility] 0 22:01:04 Blood in urine 29088351 Active 2013 HEMATURIA NOS;Record ed Elsewhere: No Locatio n: [facility] rce: EHR Chroni c: N Practice ID: 0001 Billa ble Time: 02:30:00 PM Not Available [facility] 0 22:01:[address] Concept Active 2015 Encntr for tire builder operator exam (general) (routine) w/o abn findings;R ecorded Elsewhere: No Locatio n: [facility] rce: EHR Chroni c: N Practice ID: 0001 Billa ble Time: 04:30:00 PM Not Available [facility] 0 22:01:05 Adult health examinati on Active 2013 ROUTINE MEDICAL EXAM;Recor ded Elsewhere: No Locatio n: [facility] rce: EHR Chroni c: N Practice ID: 0001 Billa ble Time: 02:30:00 PM Not Available [facility] 0 22:01:05 Female genital organ symptoms 289620274 Active 2011 Unspecifie d symptom associated with female genital organs;Rec orded Elsewhere: No Locatio n: [facility] rce: EHR Chroni c: N Practice ID: 0001 Billa ble Time: 02:00:00 PM Not Available [facility] 0 22:01:05 Procedure on genitouri nary system Active 2010 Sterilizat ion;Practi ce ID: 0001 Not Available [facility] 0 22:01:05 Pre-surge ry evaluatio n Active 2010 Pre-operat yessy examinatio n, unspecifie d;Practice ID: 0001 Not Available [facility] 0 22:01:05 Problem Notes None recorded. Procedures Surgical History Date Name Laterality Status Provider Name and Address Organization Details Recorded Time 09/21/19 17 Partial Hysterectomy completed [facility] 01/09/2024 10:24:20 06/18/19 17 Date of Last Pap Smear completed [facility] 01/09/2024 10:30:35 08/16/18 93 Caesarean Section completed [facility] 01/09/2024 10:24:20 Tubal Ligation completed [facility] 01/09/2024 10:24:20 Dilation and Curettage completed [facility] 01/09/2024 10:24:20 Imaging Results Imaging Date Name Status LastModified by Organization Details LastModified Time 01/28/2024 US, pelvis completed mushtaq Hannah [address], [place], [address], 01/28/2024 18:12:51 01/28/2024 US, transvaginal completed mushtaq westbrook [address], [place], [address], 01/28/2024 18:13:04 01/28/2024 [facility], [facility] [address], [place], [address], 01/29/2024 10:40:13 Procedure Notes None recorded. Medical Equipment None Reported. Allergies Allergen ID Allergen Name Allergen Category Reaction Reaction Severity Criticality Documentation Date Start Date Code Code System Note Provider Name and Address Organization Details Recorded Time 47000 chlorhexi dine medicatio n rash moderate Not available 01/09/2024 2358 RxNorm Gertrude montilla [facility] 4 10:23:48 Medications Name Sig Start [...] Prescrib ed Elsewher e: No Locat ion: [facility] odify By: dasha alegria DateTime : 05/10/20 11 08:30:00 AM Not Available Not Available Not Available lisinopri l 10 mg tablet TAKE 1 TABLET BY MOUTH DAILY active Not Available Not Available No t Available Vitamins and Minerals tablet active Prescrib ed Elsewher e: Yes Loca tion: [facility] odify By: dasha alegria DateTime : 08/07/19 13 08:30:00 AM Not Available Not Available Not Available Vitals Date Recorded Body height Body mass index (BMI) Body weight Systolic blood pressure Diastolic blood pressure Provider Name and Address Organization Details Last Updated DateTime 01/09/2024 167.64 cm 23.5 kg/m2 58552.77 g 124 mm[Hg] 77 mm[Hg] Gertrude Smith [facility] 4 10:29:32 Social History Question Answer [...] Or The Highest Degree You Have Received? [id number] Information not available 01/09/2024 What Is Your [...] Anxious, Or Unable To Sleep At Night)? [id number] Information not available 01/09/2024 Do You Use [...] (Food, seasonal, environmental ) N Other N Drug/Latex Allergies/Reactions N Blood Transfusion N Breast Cancer N Dermatologic Disorders N Lung Disease N [...] SNOMED-CT Code Diagnosis ICD10 Code Diagnosis Note [id number] ROSI HUDSON MD [facility] [address] [address] 01/09/2024 09:56:31 01/09/2024 10:57:33 Pain in pelvis 73624990 R10.2 - patient reports ovulation- like pain since 05/2023- irregular q2-6 weeks- unilateral , however has had pain on both sides in separate episodes- s/p hysterecto my in 2017, ovaries still in place- no bleeding post hyst- labwork from endocrinol ogy reviewed today, FSH 96, postmenopa usal- will order pelvic US to evaluate ovaries [id number] [facility] [address] [address] 01/28/2024 13:29:45 01/28/2024 14:38:02 Pain in pelvis 24529508 R10.2 Health Concerns Section Related Observation LastModified by Organization Detai ls LastModified Time None Recorded Concern Status LastModified by Organization Details LastModified Time None Recorded Advance Directives Directive None Recorded Payers Encounter Date Sequence Insurance Name Policy Number Policy Mabry Covered Member ID Mabry Member ID Guarantor Name 01/09/2024 1 [employer] 111 Bhavani Casillas [id number] Bhavani Casillas 01/28/2024 1 [employer] 111 Bhavani Casillas [id number] Bhavani Casillas Notes Date Note Type Note [...] years. Previously had bloodwork done by her materials engineer, was told she was postmenopausal in 2021. ROSI HUDSON MD [address], [place], [address], [facility] 01/09/2024 10:54:51 OBGyn Episode Ob Episode Information Episode Created Date Number of Fetuses Patient Bloodtype Patient rh Status Prepregnancy Weight lbs Domestic Partner Domestic Partner Phone Father Name Physician Interventional Cardiologist Status 01/09/20 24 1 CLOSED Fetus Data First Name Last Name Admitted to NICU Weight (g) Sex Living Outcome Pediatric Complications Fetus ID Race Codes Race Delivery Type 3656.85 8704 F Full Term 08019 V Back Lee Calculation Initial Lee Date [...] Domestic Partner Domestic Partner Phone Father Name Physician Interventional Cardiologist Status 01/09/20 24 1 CLOSED Fetus Data First Name Last Name Admitted to NICU Weight (g) Sex Living Outcome Pediatric Complications Fetus ID Race Codes Race Delivery Type 3430.06 2704 F Full Term [id number] Primary Lee Calculation Initial Lee Date Initial [...]
--- NOTE | 2024-09-19 06:30 | WPDHPUPDATE1 ---
History and Physical Update Update Date/Time: 09/19/24 06:30 History and Physical has been reviewed, including an updated exam of the patient. There are NO changes in the patient's condition. Risks, benefits, and alternatives have been discussed and questions answered. Patient agrees to proceed with procedure.
[2024-09-19] MEDS: LACTATED RINGERS 1,000 ML 30 ML IV CONT (08:24)
--- NOTE | 2024-09-19 08:37 | P.PNAN_ITS ---
Anes - Eval Pre Procedure Procedure: Operation Date: 09/19/24 10:00 Proposed Procedures p Left Renal Extracorporeal Shock Wave Lithotripsy - Franc Cid MD Date/Time: 09/19/24 08:37 Pre Op Diagnosis: left renal kidney stone Patient Data Age: 59 Gender: F Height: 1.68 m Weight: 64.5 kg Allergies Allergy/AdvReac Type Severity Reaction Status Date / Time chlorhexidine Allergy Hives Verified 09/19/24 08:13 amlodipine AdvReac Heartburn Verified 09/19/24 08:13 Home Medications ?Medication ?Instructions ?Recorded ?Confirmed ?Type acetaminophen 325 mg tablet 650 mg PO Q4-6H 01/01/24 09/12/24 History (Tylenol) levothyroxine 25 mcg tablet 50 mcg PO DAILY 08/25/24 09/19/24 History (Unithroid) lisinopril 10 mg tablet 10 mg PO DAILY #90 tabs 08/25/24 09/19/24 Rx ECG: SR Patient hx anesthesia problems: post op nausea/vomiting Family hx anesthesia problems: none Results Review: All pre-operative results and documents have been reviewed as part of the pre-operative evaluation. [facility] Past Medical History Medical History Kidney stone Right ureteral stone Renal mass Dyslipidemia Essential (primary) hypertension Multinodular goiter H/O Corazon thyroiditis Hypothyroidism (acquired) Arthritis Surgical History Surgical History H/O: hysterectomy (~09/20/16) H/O dilation and curettage (~06/17/09) Hx of tubal ligation (~2010) History of (~1992) H/O foot surgery (~1976) Left - for bony deformity Family History Family History Father Cerebrovascular accident Family history of coronary artery disease Family history of cardiovascular disease Social History Social History Smoking packs per day: 1 Smoking cigarettes per day: 20.0 Years smoked: 15 Smoking pack-years: 15.00 Smoking status: Former smoker Tobacco type: cigarettes Smoking end date: 09/13/91 Alcohol intake: current Substance use: never Substance use type: does not use Lack of Transportation: No Lack of Food: Never True Current Housing: I Have Housing Concerned About Future Housing: No Difficulty Paying Gas/Electric Bills: No Difficulty Paying for Meds: No Currently Unemployed: No Education: Master's Degree or Higher Difficulty w/ Childcare or Family Care: No Living arrangements: alone Spiritual care concerns: No Exam Day of Procedure 09/19/24 08:37 Patient weight: normal Airway: Mallampati scale class II Neurological: alert and oriented
[2024-09-19] MEDS: ceFAZolin 2 GM/D5W 50 ML 2 GM/50 ML BAG IVPB (08:48)
--- NOTE | 2024-09-19 08:52 | P.PNAN_ITS ---
Anes - Eval Final PreProcedure Day of Procedure 09/19/24 08:52 Patient weight: normal Lungs: normal air movement Airway: Mallampati scale class II Neurological: alert and oriented Last oral intake: >/= 8 hours ASA classification: II Emergent: no Anesthetic plan: proceed Anesthesia type and monitoring: general LMA and standard monitoring Results Review: All pre-operative results and documents have been reviewed as part of the pre- operative evaluation. Informed Consent: The patient's anesthetic plan and its attendant risks and benefits were discussed with the patient/family/POA. Questions were solicited and answers pr ovided to the satisfaction of the patient/family/POA.
--- NOTE | 2024-09-19 09:00 | W.PM.PROC2 ---
Procedure Note - Detailed Date of Procedure 09/19/24 Pre-op Diagnosis Left renal stone Post-op Diagnosis Same Procedure Performed Left ESWL Surgeon Franc Cid MD Anesthesia General Description of Procedure The patient was brought to the operative suite where she was placed in the supine position on the Dornier lithotripsy table. The focal point of the lithotripter was placed at a 7-8mm left renal calculus. A total of 2500 shocks were delivered at a power setting of 4. There appeared to be good fragmentation of the stone. The patient tolerated the procedure well and was taken to the recovery room in good condition. Drains No Packing No Pathology None sent Complications No immediate complications Condition Stable
== END 2024-09-19 11:13 | disposition home or self-care (01) ==
PROVIDERS: PCP Clinical Nurse Specialist; Visit Provider Urology
PROC: (CPT 50590; principal; 2024-09-19 10:00)
DX: N20.0 Calculus of kidney (principal)
CPT/HCPCS: 50590; 74018; J0690; J1100; J2003; J2250; J2405; J2704; J3010; J7120

== ENCOUNTER 2024-09-22 08:30 | Outpatient (CLI) | payer BC, SELFPAY ==
--- NOTE | ~2024-09-22 | MM_ITS ---
EXAMINATION: MM screening rd BI w patsy HISTORY: Screening TECHNIQUE: Craniocaudal and mediolateral oblique 3-D tomosynthesis images were obtained and synthetic 2-D images were generated. CAD analysis was submitted and interpreted. COMPARISON: 04/04/2011 BREAST PARENCHYMAL COMPOSITION: Not dense: There are scattered areas of fibroglandular density. FINDINGS: There is no evidence of suspicious mass, calcification, or architectural distortion to sugg est malignancy in either breast. There has been no suspicious interval change. IMPRESSION: 1. No mammographic evidence of malignancy. 2. Recommend routine screening mammography in one year. BI-RADS Category 1: Negative Reviewed, dictated and finalized at location A.
--- OUTSIDE RECORDS SUMMARY | 2024-09-22 08:50 | XMS_ITS | Encounter Summary ---
Author Organization [facility] Address [address] [place] [address] Care Team Providers Care Percolator Operator Name Role Phone Madelin Jaeger MD Primary Care Provider [phone] Bhavani Cm RN Unavailable [phone] Neo Garcia MD Primary Care Provider [phone] Neo Garcia MD Primary Care Provider [phone] Madelin Jaeger MD Primary Care Provider [phone] Odalis Guerrero MD Primary Care Provider [phone] Shawnee Marshall DO Primary Care Provider Coni Hawk MD Unavailable [phone] Madelin Jaeger MD Primary Care Provider [phone] Shawnee Marshall DO Primary Care Provider [phone] Odalis Guerrero MD Unavailable [phone] Encounter Details Date Type Department Care Team (Late st Contact Info) Description 04/12/2017 Lab Requisition [facility] - Laboratory [address] [place] [address] Unknown, Provider Social History Tobacco Use [...] Under Investigation 04/23/2020 04/23/2020 04/25/2020 6:35 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 documented as of this encounter Care Teams Percolator Operator Relationship Specialty Start Date End Date Madelin Jaeger MD [address] [place] [address] PCP - General Family Medicine 04/29/15 10/01/17 Neo Garcia MD [address] [place] [address] PCP - General 10/02/17 10/02/17 Neo Garcia MD [address] [place] [address] PCP - General 10/03/17 10/28/17 Madelin Jaeger MD [address] [place] [address] PCP - General Family Medicine 10/29/17 03/18/18 Odalis Guerrero MD [address] [place] [address] PCP - General Family Medicine 03/19/18 08/13/18 Shawnee Marshall DO [address] [place] [address] PCP - General Internal Medicine 08/14/18 06/18/19 Madelin Jaeger MD [address] [place] [address] PCP - General 06/19/19 01/22/20 Shawnee Marshall DO [address] [place] [address] PCP - General Internal Medicine 01/23/20 Odalis Guerrero MD [address] [address] PCP - Attributed-Exclusive Choice 06/20/18 11/17/18 Bhavani Cm, RN Laborer Prestressed Concrete 09/21/16 [place] [address] [address] Endocrinology 11/18/18 documented as of this encounter
--- OUTSIDE RECORDS SUMMARY | 2024-09-22 08:51 | XMS_ITS | Encounter Summary ---
Author Organization [facility] Address [address] 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
--- OUTSIDE RECORDS SUMMARY | 2024-09-22 08:51 | XMS_ITS | Encounter Summary ---
Author Organization [facility] Address [address] [place] [address] Care Team Providers Care Training Developer Name Role Phone Madelin Jaeger MD Primary Care Provider [phone] Bhavani Cm RN Unavailable [phone] Neo Garcia MD Primary Care Provider [phone] Neo Garcia MD Primary Care Provider [phone] Madelin Jaeger MD Primary Care Provider [phone] Odalis Guerrero MD Primary Care Provider [phone] Shawnee Marshall DO Primary Care Provider Coni Hawk MD Unavailable [phone] Madelin Jaeger MD Primary Care Provider [phone] Shawnee Marshall DO Primary Care Provider [phone] Odalis Guerrero MD Unavailable Encounter Details Date Type Department Care Team (Late st Contact Info) Description 12/11/2014 Lab Requisition [facility] [address] [place] [address] Unknown, Provider Social History Tobacco Use Types [...] IgG 2414.0 IV 12/14/2014 11:25 AM CDT [facility] ([facility]) Comment: INTERPRETIVE INFORMATION: VZV Ab, IgG 134 [...] PM CDT Provider Unknown LAB - CHEMISTRY JUTSA SCHULZ [employer] [facility]) [address] * RUBEOLA ANTIBODY IGG (12/11/2014 2:45 PM CDT) Measles (Rubeola) Antibody IgG >300.0 AU/mL 12/14/2014 11:20 AM CDT [facility] ([facility]) Comment: INTERPRETIVE INFORMATION: Measles (Rubeola) Antibody, IgG [...] PM CDT Provider Unknown LAB - CHEMISTRY [employer] Performing Organization Address City/[facility] Co de Phone Number [employer] [facility]) [address] [place] [address] * MUMPS ANTIBODY IGG (12/11/2014 2:45 PM CDT) [facility] Signature Mumps Virus Antibody IgG >300.0 AU/mL 12/14/2014 11:23 AM CDT [employer] ([facility]) Comment: INTERPRETIVE INFORMATION: Mumps Ab, IgG by [...] PM CDT Provider Unknown LAB - CHEMISTRY [employer] ([facility]) [address] [place] [address], [facility] * RUBELLA ANTIBODY IGG (12/11/2014 2:45 PM CDT) Rubella Antibody IgG Positive - Immune 12/11/2014 6:46 PM CDT [facility] Blood BLOOD SPECIMEN / Unknown Venipuncture / Unknown 12/11/2014 2:45 PM CDT 12/11/2014 5:48 PM CDT Provider Unknown LAB - SEROLOGY ORDER ELO [facility] [address] [place] [address] documented in this encounter Visit Diagnoses Not on filedocumented in this encounter Additional Health Concerns Infection Onset Date Last Indicated Resolved Time COVID-19 Under Investigation 02/01/2020 02/01/2020 02/01/2020 9:41 AM CDT COVID-19 Under Investigation 02/01/2020 02/01/2020 02/02/2020 6:20 AM CDT COVID-19 Under Investigation 04/23/2020 04/23/2020 04/25/2020 6:35 PM ENROLLMENT ELIGIBILITY REPRESENTATIVE documented as of this encounter Care Teams Training Developer Relationship Specialty Start Date End Date Madelin Jaeger MD [address] [place] [address] PCP - General Family Medicine 04/29/15 10/01/17 Neo Garcia MD [address] [place] [address] PCP - General 10/02/17 10/02/17 Neo Garcia MD [address] [place] [address] PCP - General 10/03/17 10/28/17 Madelin Jaeger MD [address] [place] [address] PCP - General Family Medicine 10/29/17 03/18/18 Odalis Guerrero MD [address] [place] [address] PCP - General Family Medicine 03/19/18 08/13/18 Shawnee Marshall DO [address] [place] [phone] PCP - General Internal Medicine 08/14/18 06/18/19 Madelin Jaeger MD [address] [place] [address] PCP - General 06/19/19 01/22/20 Shawnee Marshall DO [address] [place] [address] PCP - General Internal Medicine 01/23/20 Odalis Guerrero MD [address] [facility] [address] [place] [address] PCP - Attributed-Exclusive Choice 06/20/18 11/17/18 Bhavani Cm, RN Production Machinist 09/21/16 [place] [address] [address] Endocrinology 11/18/18 documented as of this encounter
--- OUTSIDE RECORDS SUMMARY | 2024-09-22 08:51 | XMS_ITS | Clinical Summary ---
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
--- OUTSIDE RECORDS SUMMARY | 2024-09-22 08:51 | XMS_ITS | Continuity of Care Document ---
Author Organization [facility] Address [address] [place] [address] Phone Care Team Providers Care Spot Sprayer Name Role Phone Shawnee Marshall DO Unavailable Unavailable Allergies, Adverse Reactions, Alerts Substance Reaction Status Criticality nickel RashRash Active No Information chlorthalidone RashRash Active No Informatio n Medications Medication Instructions Dosage Effective Dates (start - stop) Status Comments Multiple Vitamins tablet - Activ e [place]-3 350 mg-235 mg-90 mg-597 mg capsule,delayed release - Active Vitamin B-12 50 mcg tablet - Active zinc 50 mg tablet - Active Dosoquin 5,500 unit-200 mcg tablet - Active Procedures Procedure Date Pt inelig neg scrn depres OFFICE FHTAS-IGH-HZOOLLED BODY MASS INDEX DOCD SYST BP GE [...] Diagnoses Date Provider Providers Copied on Encounter [facility], [address], [place], [place], [address], [place] tel:[phone] [facility] Internal Medicine No Information [address], [address], [place], [place], [address] , [place]. tel: [phone] OFFICE [id number] ANDED [facility], [address], [place], [place], [address], tel:[phone] [facility] Complete Care Chronic Conditions (chief complaint) Nontoxic multinodular goiterAllergic rhinitis, unspecified 0 [address], [address], [place], [place], [address] , [place]. tel: [phone] Referring Provider: Shawnee Pearce, [address], [place], [address] . tel:[phone] [facility], [address], [place], [place], [address], tel:[phone] [facility] Complete Care Nontoxic multinodular goiterWell adult exam [address], [address], [place], [place], [address] , [place]. tel: [phone] Referring Provider: Shawnee Pearce, [address], [place], [address] . tel:[phone] Family History Family Member Type Diagnosis Age At Onset Problem (finding) Family history of hyper cholesterolemia Problem (finding) Family history of strok e Problem (finding) Family history of premature coronary heart disease Problem (finding) Family history of hyper tension Payers Payer name Insurance type Covered democrat ID claudy melgar(s) [facility] [id number] Social History Type Description Quantity Date Captured [...]
--- OUTSIDE RECORDS SUMMARY | 2024-09-22 08:51 | XMS_ITS | Clinical Summary ---
Author Organization [facility] Address [address] [place] [address] Care Team Providers Care Ppa Teacher Name Role Phone Tyree Cm RN Unavailable [phone] Coni Hawk MD Unavailable [phone] Shawnee Marshall DO Primary Care Provider [phone] Source Comments [facility],non-owned Affiliates and Associated Physician Practices is amultiple site organization consisting of ambulatory clinics and hospital sitesin [place], [place], [place] and [place]. This disclosure is being madepursuant to the Care Everywhere program and may not contain all information available regarding this patient. Last updated 18.[facility] Allergies Active Allergy Reactions Criticality Noted Date [...] 1 Tab by mouth once daily Active [place]-3 Fatty Acids (ULTRA OMEGA 3 PO) Take [...] Department Care Team Description 09/10/2024 Orders Only [facility] - Endocrinology [address] [facility], [address] [address] Coni Hawk MD Post-menopausal from Last 3 Months Immunizations Name Administration [...] CA SCREENING 04/05/2019 04/05/2018 COVID-19 VACCINE ( season) 2024 DEPRESSION SCREENING 06/18/2024 INFLUENZA VACCINE (Season Ended) 2025 04/19/2023, 04/28/2022, 04/17/2018 LIPID TESTING 04/20/2028 04/20/2023, 03/19, 03/28/2018, Additional [...] LDL-C. Jorge SS et al. RUSTY. 2013;310(19): 3317-1649 (http://education.Civolution.YumDots/faq/MVN919) CHOL/HDLC RATIO 4.5 <5.0 (calc) [facility] Non HDL Cholesterol 175(H) <130 mg/dL (calc) [facility] Comment: For patients with diabetes plus 1 major ASCVD risk factor, treating to a non-HDL-C goal of <100 mg/dL (LDL-C of <70 mg/dL) is considered a therapeutic option. Test Performed at: [facility] [address] CHUCKY AQUINO MD Blood BLOOD SPECIMEN / Unknown 04/20/2023 8:29 AM CDT 04/20/2023 8:34 AM CDT Coni Hawk MD LAB - CHEMISTRY ORDERABLES Performing Organization Address [facility] Co de Phone Number [address] [address] * OCCULT BLOOD FECES IMMUNOASSAY (04/05/2018 7:47 AM CDT) Pathologist [facility] Occult Blood Immunoassay Negative Negative 04/05/2018 8:51 AM CDT [facility] Stool STOOL SPECIMEN / Unknown Collection / Unknown 04/05/2018 7:47 AM CDT 04/05/2018 7:47 AM CDT LAB - MICROBIOLOGY O RDERABLES Performing Organization Address [facility] Co de Phone Number [facility] [address] [place] [address] * HEPATITIS C ANTIBODY (03/28/2018 8:36 AM CDT) Hepatitis C Antibody <0.1 0.0 - 0.9 s/co ratio [facility] ACCOUNT BILL Comment: Negative: < 0.8 Indeterminate: 0.8 - 0.9 Positive: > 0.9 . The CDC recommends that a positive HCV antibody result be followed up with a HCV Nucleic Acid Amplification test (283988). FASTING Blood BLOOD SPECIMEN / Unknown 03/28/2018 8:36 AM CDT 03/28/2018 Narrative Resulting Agency Comment [facility] Mady [address]olson[address] Nakina Ebony [facility] [phone] Odalis Guerrero MD LAB - CHEMISTRY OR DERABLES [facility] ACCOUNT [address]PE [address] [place] [address] * MAMMOGRAM DIGITAL SCREENING BILATERAL G0202 (10/23/2017 [...] been scanned as a document/letter in the [employer] EMR (media tab). If there are questions regarding this information or our Cancer Genetics Risk Assessment Program, please do not hesitate to contact [phone]. Narrative 10/23/2017 10:53 AM CDT Bilateral mammography. Most recent comparison: 2015 History: Screening mammogram. Technique: Bilateral breasts. Mammography views included: CC and MLO. Images interpreted with CAD. Following current [facility] protocol, 3D mammographic tomosynthesis images were obtained and reviewed on a dedicated viewing station. FINDINGS: Breast composition: Heterogeneously dense which may obscure small masses. No suspicious calcifications, masses, or areas of architectural distortion. Neo Garcia MD MAMMO ORDERABLES from Last 3 Months or Most Recently Relevant to Health Maintenance Advance Directives Documents on File Type Date Recorded Patient Certified Breastfeeding Educator Expl anation Adv Directive/Living Will/POA 09/21/2016 7:56 PM * Full Code (Latest Code Status on File) Date Activated Date Inactivated Comments 09/20/2016 8:58 AM 09/21/2016 3:41 PM Care Teams Ppa Teacher Relationship Specialty [place] [address] [facility] [address] [place] [address] PCP - General Internal Medicine 01/23/20 Tyree Cm, RN Turret Punch Press Operator 09/21/16 [place] [address] [facility] [address] [place] [address] Endocrinology 11/18/18
--- OUTSIDE RECORDS SUMMARY | 2024-09-22 08:51 | XMS_ITS | Continuity of Care Document ---
Author Organization [facility] Address [address] [place] [address] Phone Care Team Providers Care Dump Motor Operator Name Role Phone Timoteo, Edward Unavailable Unavailable Advance Directives Directive Yes / No Effective Date File Name No Information Encounters Encounter Description Practice Location Reason(s) For Visit Diagnoses Date Provider Providers Copied on Encounter [facility], [address], [place], [place], [address], [place] tel:[phone] [facility] No Information 4-[address] Doisy Edward. [address] , [address], [place], [address], [place]. tel:[phone] Family History Family Member Type Diagnosis Age [...]
--- OUTSIDE RECORDS SUMMARY | 2024-09-22 08:51 | XMS_ITS | Encounter Summary ---
Author Organization [facility] Address [address] [place] [address] Care Team Providers Care Chairman & Chief Executive Officer Name Role Phone Bhavani Cm RN Unavailable [phone] Odalis Guerrero MD Primary Care Provider [phone] Shawnee Marshall DO Primary Care Provider [phone] Coni Hawk MD Unavailable [phone] Madelin Jaeger MD Primary Care Provider [phone] Shawnee Marshall DO Primary Care Provider Odalis Guerrero MD Unavailable [phone] Encounter Details Date Type Department Care Team (Late st Contact Info) Description 04/05/2018 Lab Requisition [facility] - Laboratory [address] [place] [address] Social History Tobacco Use Types Packs/Day [...] BLOOD FECES IMMUNOASSAY (04/05/2018 7:47 AM CDT) [facility] Occult Blood Immunoassay Negative Negative 04/05/2018 8:51 AM CDT [facility] Stool STOOL SPECIMEN / Unknown Collection / Unknown 04/05/2018 7:47 AM CDT 04/05/2018 7:47 AM CDT LAB - MICROBIOLOGY O RDERABLES Performing Organization Address City/State/[facility] Co de Phone Number [facility] [address] [place] [address] documented in this encounter Visit Diagnoses Not on filedocumented in this encounter Additional Health Concerns Infection Onset Date Last Indicated Resolved Time COVID-19 Under Investigation 02/01/2020 02/01/2020 02/01/2020 9:41 AM CDT COVID-19 Under Investigation 02/01/2020 02/01/2020 02/02/2020 6:20 AM CDT COVID-19 Under Investigation 04/23/2020 04/23/2020 04/25/2020 6:35 PM COATER HAND documented as of this encounter Care Teams Chairman & Chief Executive Officer Relationship Specialty Start Date End Date Odalis Guerrero MD PCP - General Family Medicine 03/19/18 08/13/18 Shawnee Marshall DO PCP - General Internal Medicine 08/14/18 06/18/19 Madelin Jaeger MD [address] [place] [address] PCP - General 06/19/19 01/22/20 Shawnee Marshall DO PCP - General Internal Medicine 01/23/20 Odalis Guerrero MD [address] [facility] [address] [place] [address] PCP - Attributed-Exclusive Choice 06/20/18 11/17/18 Bhavani Cm, RN Electrician 09/21/16 [place] [address] [address] Endocrinology 11/18/18 documented as of this encounter
--- OUTSIDE RECORDS SUMMARY | 2024-09-22 08:51 | XMS_ITS | Referral Summary ---
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
--- OUTSIDE RECORDS SUMMARY | 2024-09-22 08:51 | XMS_ITS | Data Portability ---
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 Plan of Treatment Reminders Order Date Submit Date Provider Last Modified By Organization Details Last Modified Time Details Appointments None recorded. Lab None recorded. Referral None recorded. Procedures None recorded. Surgeries None recorded. Imaging US, pelvis [email or web address], [facility][note 2] [address], [address], [place], [address], 20:32:23 US, transvagina l [address], [facility][note 2] [address], [place], [address], 4 20:32:23 Medication Orders None recorded. Patient TargetsNo targets recorded. Patient InstructionsNo instructions recorded. Reason for Referral None Reported. Results Created Date Observation Date Name Description Value Unit Range Abnormal Flag Note LastModifiedBy Organization Detail LastModifiedTime 01/28/2001/28/2024 US, pelvi s No observ ation record ed. [facility] [address], [place], [address], 01/28/2024 18:12:51 01/28/20 24 01/28/2024 US, trans vagin al No observ ation record ed. [facility] [address], [place], [address], 01/28/2024 18:13:04 01/28/20 24 01/28/2024 US, prisca s No observ ation record ed. ANTHONY Carley [address], [place], [address], 01/29/2024 10:40:13 Result Notes None recorded. Problems Name Problem SNOMED Code Status Onset Date Resolution Date Notes Provider Name and Address Organization Details Recorded Time Urinary tract infectiou s disease 46073257 Active 2010 Urinary Tract Infection; Recorded Elsewhere: No Locatio n: [facility] rce: EHR Chroni c: N Practice ID: 0001 Billa ble Time: 08:30:00 AM Not Available [facility] 0 22:01:04 Specializ ed medical examinati on Active 2013 Gynecologi chris Examinatio n;Recorded Elsewhere: No Locatio n: [facility] rce: EHR Chroni c: N Practice ID: 0001 Billa ble Time: 02:30:00 PM Not Available [facility] 0 22:01:04 Screening for malignant neoplasm of rectum Active 2012 Screening for malignant neoplasms of the rectum;Rec orded Elsewhere: No Locatio n: [facility] rce: EHR Chroni c: N Practice ID: 0001 Billa ble Time: 08:30:00 AM Not Available [facility] 0 22:01:04 Screening for malignant neoplasm of cervix Active 2012 Screening for malignant neoplasms of the cervix;Rec orded Elsewhere: No Locatio n: [facility] rce: EHR Chroni c: N Practice ID: 0001 Billa ble Time: 08:30:00 AM Not Available [facility] 0 22:01:04 Microscop ic hematuria 818687358 Active 2013 MICROSCOPI C HEMATURIA; Recorded Elsewhere: No Locatio n: [facility] rce: EHR Chroni c: N Practice ID: 0001 Billa ble Time: 02:30:00 PM Not Available [facility] 0 22:01:04 Dyspareun ia 90605955 Active 2011 Dyspareuni a;Recorded Elsewhere: No Locatio n: [facility] rce: EHR Chroni c: N Practice ID: 0001 Billa ble Time: 02:00:00 PM Not Available [facility] 0 22:01:04 Abdominal pain 74052470 Active 2011 Abdominal pain, other specified site;Recor ded Elsewhere: No Locatio n: [facility] rce: EHR Chroni c: N Practice ID: 0001 Billa ble Time: 02:00:00 PM Not Available [facility] 0 22:01:04 Blood in urine 86304460 Active 2013 HEMATURIA NOS;Record ed Elsewhere: No Locatio n: [facility] rce: EHR Chroni c: N Practice ID: 0001 Billa ble Time: 02:30:00 PM Not Available [facility] 0 22:01:[address] Concept Active 2015 Encntr for brass chaser exam (general) (routine) w/o abn findings;R ecorded Elsewhere: No Locatio n: [facility] rce: EHR Chroni c: N Practice ID: 0001 Billa ble Time: 04:30:00 PM Not Available [facility] 0 22:01:05 Adult health examinati on Active 2013 ROUTINE MEDICAL EXAM;Recor ded Elsewhere: No Locatio n: [facility] rce: EHR Chroni c: N Practice ID: 0001 Billa ble Time: 02:30:00 PM Not Available [facility] 0 22:01:05 Female genital organ symptoms 833500547 Active 2011 Unspecifie d symptom associated with female genital organs;Rec orded Elsewhere: No Locatio n: [facility] rce: EHR Chroni c: N Practice ID: 0001 Billa ble Time: 02:00:00 PM Not Available [facility] 0 22:01:05 Procedure on genitouri nary system Active 2010 Sterilizat ion;Practi ce ID: 0001 Not Available [facility] 0 22:01:05 Pre-surge ry evaluatio n Active 2010 Pre-operat yessy examinatio n, unspecifie d;Practice ID: 0001 Not Available [facility] 0 22:01:05 Problem Notes None recorded. Procedures Surgical History Date Name Laterality Status Provider Name and Address Organization Details Recorded Time 09/21/19 17 Partial Hysterectomy completed [facility] 01/09/2024 10:24:20 06/18/19 17 Date of Last Pap Smear completed [facility] 01/09/2024 10:30:35 08/16/18 93 Caesarean Section completed [facility] 01/09/2024 10:24:20 Tubal Ligation completed [facility] 01/09/2024 10:24:20 Dilation and Curettage completed [facility] 01/09/2024 10:24:20 Imaging Results Imaging Date Name Status LastModified by Organization Details LastModified Time 01/28/2024 US, pelvis completed mushtaq Hannah [address], [place], [address], 01/28/2024 18:12:51 01/28/2024 US, transvaginal completed mushtaq westbrook [address], [place], [address], 01/28/2024 18:13:04 01/28/2024 [facility], [facility] [address], [place], [address], 01/29/2024 10:40:13 Procedure Notes None recorded. Medical Equipment None Reported. Allergies Allergen ID Allergen Name Allergen Category Reaction Reaction Severity Criticality Documentation Date Start Date Code Code System Note Provider Name and Address Organization Details Recorded Time 32127 chlorhexi dine medicatio n rash moderate Not available 01/09/2024 2358 RxNorm Gertrude montilla [facility] 4 10:23:48 Medications Name Sig [...] Prescrib ed Elsewher e: No Locat ion: [facility] odify By: dasha alegria DateTime : 05/10/20 11 08:30:00 AM Not Available Not Available Not Available lisinopri l 10 mg tablet TAKE 1 TABLET BY MOUTH DAILY active Not Available Not Available No t Available Vitamins and Minerals tablet active Prescrib ed Elsewher e: Yes Loca tion: [facility] odify By: dasha alegria DateTime : 08/07/19 13 08:30:00 AM Not Available Not Available Not Available Vitals Date Recorded Body height Body mass index (BMI) Body weight Systolic blood pressure Diastolic blood pressure Provider Name and Address Organization Details Last Updated DateTime 01/09/2024 167.64 cm 23.5 kg/m2 93434.77 g 124 mm[Hg] 77 mm[Hg] Gertrude Smith [facility] 4 10:29:32 Social History Question [...] Or The Highest Degree You Have Received? EC33567-4 Information not available 01/09/2024 What Is Your [...] Anxious, Or Unable To Sleep At Night)? [id number] Information not available 01/09/2024 Do You Use [...] SNOMED-CT Code Diagnosis ICD10 Code Diagnosis Note [id number] ROSI HUDSON MD [place] [address] [address] 01/09/2024 09:56:31 01/09/2024 10:57:33 Pain in pelvis 64387118 R10.2 - patient reports ovulation- like pain since 05/2023- irregular q2-6 weeks- unilateral , however has had pain on both sides in separate episodes- s/p hysterecto my in 2017, ovaries still in place- no bleeding post hyst- labwork from endocrinol ogy reviewed today, FSH 96, postmenopa usal- will order pelvic US to evaluate ovaries [id number] [facility] [address] [address] 01/28/2024 13:29:45 01/28/2024 14:38:02 Pain in pelvis 20986076 R10.2 Health Concerns Section Related Observation LastModified by Organization Detai ls LastModified Time None Recorded Concern Status LastModified by Organization Details LastModified Time None Recorded Advance Directives Directive None Recorded Payers Encounter Date Sequence Insurance Name Policy Number Policy Mabry Covered Member ID Mabry Member ID Guarantor Name 01/09/2024 1 [employer] 111 Bhavani Casillas [id number] Bhavani Casillas 01/28/2024 1 [employer] 111 Bhavani Casillas [id number] Bhavani Casillas Notes Date Note Type Note [...] years. Previously had bloodwork done by her construction technician, was told she was postmenopausal in 2021. ROSI HUDSON MD [address], [place], [address], [facility] 01/09/2024 10:54:51 OBGyn Episode Ob Episode Information Episode Created Date Number of Fetuses Patient Bloodtype Patient rh Status Prepregnancy Weight lbs Domestic Partner Domestic Partner Phone Father Name Certified Credit Counselor Status 01/09/20 24 1 CLOSED Fetus Data First Name Last Name Admitted to NICU Weight (g) Sex Living Outcome Pediatric Complications Fetus ID Race Codes Race Delivery Type 3656.85 8704 F Full Term [id number] V Back Lee Calculation Initial Lee Date [...] Partner Domestic Partner Phone Father Name Certified Credit Counselor Status 01/09/20 24 1 CLOSED Fetus Data First Name Last Name Admitted to NICU Weight (g) Sex Living Outcome Pediatric Complications Fetus ID Race Codes Race Delivery Type 3430.06 2704 F Full Term [id number] Primary Lee Calculation Initial Lee Date Initial [...]
== END 2024-09-22 08:31 | disposition home or self-care (01) ==
LOC: ANHIMG 08:31
PROVIDERS: PCP Clinical Nurse Specialist; Visit Provider Internal Medicine
DX: Z12.31 Encounter for screening mammogram for malignant neoplasm of breast (principal)
CPT/HCPCS: 77063; 77067

== ENCOUNTER 2024-09-30 08:23 | Outpatient (CLI) | payer BC, SELFPAY ==
--- NOTE | ~2024-09-30 | US_ITS ---
EXAMINATION: US thyroid DATE: 09/30/2024 08:38 INDICATION: Nontoxic multinodular goiter TECHNIQUE: Multiple ultrasound images of the thyroid were obtained. COMPARISON: 03/13/2012 FINDINGS: The right thyroid lobe measures 0.9 x 2.8 x 2.4 cm. Within the right lobe of the thyroid gland is a 11.5 x 7.4 x 13 mm nodule: Composition - spongiform (0) Echogenicity -hyperechoic and isoechoic (1) Shape - wider than tall (0) Margin -ill-defined (0) Echogenic foci - none. = TR 1, benign The left thyroid lobe measures 5.4 x 2.5 x 2.3 cm. The isthmus measures 0.4cm in anterior to posterior dimension. There is coarse heterogeneous echotexture and mixed echogenicity throughout the thyroid gland without additional discrete nodules identified. Increased vascularity is present, unchanged from 2012. IMPRESSION: TR 1 nodule in the right lobe of the thyroid gland measuring 13 mm in greatest dimension. This nodule is not sonographically suspicious and no FNA is recommended. Increased vascularity detected bilaterally, suggesting Corazon's thyroiditis, unchanged from prior. Reviewed, dictated and finalized at location A.
== END 2024-09-30 08:24 | disposition home or self-care (01) ==
LOC: GOSHIMG 08:23
PROVIDERS: PCP Clinical Nurse Specialist; Visit Provider Clinical Nurse Specialist
DX: E04.2 Nontoxic multinodular goiter (principal)
CPT/HCPCS: 76536

== ENCOUNTER 2024-09-30 08:25 | Outpatient (CLI) | payer BC, SELFPAY ==
--- NOTE | ~2024-09-30 | XR_ITS ---
Supine and upright views of the abdomen Clinical history: Renal stone COMPARISON: 09/19/2024 Findings: Bowel gas pattern is nonspecific. No evidence for obstruction or free air. No abnormal mass lesion or calcification is seen. Osseous structures are intact. Impression: No definite stone seen on the current exam. Reviewed, dictated and finalized at [facility]. Impression: No definite stone seen on the current exam.
== END 2024-09-30 08:26 | disposition home or self-care (01) ==
LOC: GOSHIMG 08:25
PROVIDERS: PCP Urology; Visit Provider Urology
DX: N20.0 Calculus of kidney (principal)
CPT/HCPCS: 74018